=== PATIENT | male | born 1940 | race Caucasian/White ===

== ENCOUNTER 2019-07-29 11:42 | Inpatient (IN) | payer OTHER ==
--- NOTE | 2019-07-29 11:56 | PDOC ---
History of Present Illness - General Chief Complaint: Allergic Reaction Stated Complaint: ALLERGIC REACTION Time Seen by Provider: 07/29/19 11:55 Past History - Past Medical History Allergies/Adverse Reactions: Allergies Allergy/AdvReac Type Severity Reaction Status Date / Time Penicillins Allergy Hives Verified 07/29/19 11:45 Home Medications: Ambulatory Orders Amlodipine Besylate 10 mg PO DAILY 07/29/19 Aspirin 81 mg PO DAILY 07/29/19 Atorvastatin Ca [Lipitor] 40 mg PO HS 07/29/19 Colchicine 0.6 mg PO DAILY 07/29/19 Lisinopril [Prinivil -] 40 mg PO DAILY 07/29/19 Metoprolol Tartrate 50 mg PO DAILY 07/29/19 Tamsulosin HCl [Flomax] 0.4 mg PO DAILY 07/29/19 COPD: No Diabetes: Yes (PRE - DM) GI Disorders: Yes HTN: Yes Hypercholesterolemia: Yes - Immunization History Immunization Up to Date: Yes - Psycho Social/Smoking Cessation Hx Smoking Status: No Smoking History: Never smoked Number of Cigarettes Smoked Daily: 0 Hx Alcohol Use: No Drug/Substance Use Hx: No *Physical Exam - Vital Signs Last Vital Signs Temp Pulse Resp BP Pulse Ox 97.5 F L 90 17 173/92 H 97 07/29/19 11:45 07/29/19 11:45 07/29/19 11:45 07/29/19 11:45 07/29/19 11:45 ED Treatment Course - LABORATORY CBC & Chemistry Diagram: 07/29/19 12:44 07/29/19 12:44 Medical Decision Making - Medical Decision Making 07/29/19 12:30 HPI: 79yo M hx prostate cancer (s/p radiation and seed implantation 14 years ago), pre-diabetes, HTN, and PCN allergy presents from home c/o extensive rash s/p gentamicin and bactrim. Pt had TURP done by urologist on 07/20/19 and had a gentamicin injection then and started PO bactrim. On 07/21/19 pt began to develop painful red rash on abdomen. Pt first thought it was his usual rash that develops after PCN but then it got worse. Since then, rash has become more painful and spread to involve chest, arms, legs, penis, anus, mouth, and face. Pt went back to urologist and PCP on 07/25/19 and was given methylprednisone and dexamethasone and bactrim was stopped. Pt has been taking oral methylprednisone since then. Pt started taking claritin per recommendations. Rashes inside mouth and on face resolved but the areas are still painful. The rest of the rashes worsened and continued to blister and pop. Denies fever, chills, fatigue, headache, dizziness, numbness/tingling, weakness, vision changes, shortness of breath, cough, chest pain, palpitations, leg swelling, abdominal pain, blood in stool, diarrhea, constipation, nausea, vomiting, dysuria, hematuria, confusion. Uro - Dr Marco Antonio Pascual PCP - Dr Hayden Pascual ROS: Constitutional: Negative for chills, fever, fatigue, diaphoresis. HENT: Negative for sore throat, rhinorrhea, congestion. Eyes: Negative for visual disturbance. Respiratory: Negative for shortness of breath, cough, and wheezing. Cardiovascular: Negative for chest pain, palpitations, and leg swelling. Gastrointestinal: Negative for abdominal pain, blood in stool, constipation, diarrhea, nausea, and vomiting. Genitourinary: Negative for dysuria, flank pain, and hematuria. Musculoskeletal: Negative for myalgias, back pain, and neck pain. Skin: Positive for painful rash. Neurological: Negative for light-headedness, dizziness, vertigo, syncope, weakness, numbness and headaches. Psychiatric/Behavioral: Negative for behavioral problems and confusion. PE: Gen: Alert, NAD, uncomfortable-appearing. HEENT: PERRL, EOMI, MMM, NCAT. No conjunctival pallor. Sclera are non-icteric. Oropharynx is clear. CV: Regular rate and rhythm. No murmurs, rubs, or gallops. PULM: No resp distress. CTAB, no wheezes, rales, or rhonchi. ABD: soft, NT/ND, no rebound tenderness or guarding, no CVA tenderness. BACK: No TTP of c/t/l-spine. No step-offs or deformities. MSK: No bony deformities. 2+ pulses in all extremities. NEURO: AAOx3. PERRL. No gross CN deficits. Strength and sensation grossly intact throughout. EXTREMITIES: No cyanosis. No clubbing. No edema. No calf tenderness. PSYCH: Normal mood and thought pattern. SKIN: Warm and dry. Normal capillary refill. No jaundice. +TTP erythema with multiple coalescing erosions on chest and abdomen wrapping to R side, thighs, arms and axilla, penis, and anus. MDM: 79yo M hx prostate cancer (s/p radiation and seed implantation 14 years ago), pre-diabetes, HTN, and PCN allergy presents from home c/o extensive rash s/p gentamicin and bactrim for TURP on 07/20/19. 5% TBSA detachment (11% involvement including all rashes) including detachment of glans penis and anus. Presentation consistent with SJS. SCORTEN = 3 (age, malignancy, BUN). Ddx: erythema multiforme (rarely associated with drugs), erythroderma and erythematous drug eruption (less likely because would lack mucosal involvement and prominent skin pain), acute generalized exanthematous pustulosis, generalized bullous fixed drug eruption, linear IgA bullous dermatosis, paraneoplastic pemphigus -CBC,CMP,ESR,CRP -CXR -Cultures: blood, fungal, wounds -1L LR -4 Morphine -Dispo: Transfer to [facility] - Dr Malik spoke to burn center ( Dr Chamberlain) who said to admit to medicine. Pending call back from Medicine. 07/29/19 12:45 [facility] medicine called - no derm available for skin biopsy so cannot accept pt. Calling [facility]. [facility] stated cannot accept pt without biopsy. Will call derm, plastics, and wound. All called. Wound - Dr Vidal (pending call back) Derm - Dr Andrade (unable to reach service), Dr Platt (unable to reach doctor) , Dr Lopez (number no longer in service), Dr Randolph (doctor is away, covering doctor doesn't come to [facility]) Plastics - Dr Eisenberg (pending call back) 07/29/19 13:04 Pt states pain a little better s/p morphine but still in significant pain. 4 more morphine. 07/29/19 13:[address] Vidal for wound - will do biopsy, recommended ID consult. Calling ID stone polisher hand. Paged Urologist Dr Marco Antonio Pascual [phone]. Called Dr Hua admitting for Dr Hayden Pascual. Dr Malik spoke with Dr Blanco ID - requested to take photos and send to his cell. Permission granted verbally from pt. Photos of abdomen sent to Dr Blanco via text. Dr Blanco believes it does not look like SJS (due to irregularity and size) but is unsure of cause. Requested additional testing including HIV and syphilis and broad-spectrum abx. Ordered Levaquin and Vanc, HIV, RPR, HSV, GC. 07/29/19 14:[address] Dr Hua spoke with Dr Malik - requested hospitalist admission. Microblog sent to hospitalist. Spoke with Urologist Dr Marco Antonio Pascual - will come see pt this afternoon. 07/29/19 15:41 Signed out to admitting team. Discharge - Discharge Information Problems reviewed: Yes Clinical Impression/Diagnosis: Generalized skin eruption due to drugs and medicaments Condition: Stable - Admission Yes - Follow up/Referral Referrals: Lexx Silva [Primary Care Provider] - - Patient Discharge Instructions - Post Discharge Activity
[2019-07-29] MEDS ORDERED: morphine CARPU-JECT 4 MG/1 ML DISP.SYRIN IVPUSH ONE ×2 (12:19→13:07)
[2019-07-29] MEDS ORDERED: LACTATED RINGERS SOLUTION 1000 ML INFUS.BAG IV ONE ×2 (12:30→14:40)
[2019-07-29] MEDS ORDERED: morphine SULFATE 4 MG/ML VIAL ONE ×2 (12:33→13:50)
[2019-07-29 12:57] LABS: BASO % 0.4 % (0-2.0); EOS % 0.3 % (0-4.5); HEMATOCRIT 41.1 % (35.4-49); HEMOGLOBIN 13.6 GM/dL (11.7-16.9); LYMPH % 7.7 % (8-40); MCH 29.5 pg (25.7-33.7); MCHC 33.2 g/dl (32.0-35.9); MEAN CELL VOLUME 88.9 fl (80-96); MEAN PLT VOLUME 7.7 fl (7.5-11.1); MONO % 8.7 % (3.8-10.2); NEUT % 82.9 % (42.8-82.8); PLATELET COUNT 481 K/MM3 (134-434); RBC 4.62 M/mm3 (4.00-5.60); RDW 15.3 % (11.9-15.9); WHITE BLOOD COUNT 14.1 K/mm3 (4.0-10.0)
--- NOTE | 2019-07-29 13:18 | PDOC ---
Documentation entered by Juany Rodríguez SCRIBE, acting as scribe for Berta Malik MD. Berta Malik MD: This documentation has been prepared by the blancaibe, Juany Rodríguez SCRIBE, under my direction and personally reviewed by me in its entirety. I confirm that the documentation accurately reflects all work, treatment, procedures, and medical decision making performed by me. Attending Attestation - Resident Resident Name: Freddy Carrizalesth - HPI HPI: 07/29/19 12:41 The patient is a 79-year-old male with a past medical history significant for Pre-DM, Prostate CA, HTN, and penicillin allergy who presents to the emergency department with rashes and blisters to his mouth, arms, abdomen, penis, anus, and legs. The patient reports he had a TURP procedure done on the at his urologists office, following he was given a shot of gentamicin and discharged home on Bactrim. The patient reports the next day, he developed rashes to his abdomen, arms, legs, penis, and anus. The patient reports following up with his urologist on the , who discontinued the bacterium and gave the patient a shot of methylprednisolone and started taking Claritin, however, the rashes have been worsening. Allergies: penicillins PCP: Dr. Magaly Pascual. - Physicial Exam PE: 07/29/19 13:04 General: Awake, alert, in no acute distress. Skin: +large area of blistering anterior chest wall, area of blistering on the penis, sloughting over the internal glands, blisters in the anus. 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 Will treat with IV fluids. Transfer to burn center attempted, but patient was refused by Burn fellows at [facility] and [facility] because the patient did not have a skin biopsy. I explained to both fellows at length that I was concerned because the area of blistering involves the anus and genitals, but transfer was still refused. Attempted to transfer to medicine at [facility], but patient was refused because there is no skin biopsy available over the weekend. Asked the [facility] burn fellow for recommendations regarding the patient's care at [facility], and she stated "I have none". Will attempt to call [facility] for wound care at [place], attempt to call dermatology for biopsy. 07/29/19 13:44 [facility] called, case discussed with Burn Center attending, Dr. Chamberlain. Dr. Chamberlain request Internal Medicine service [facility] Transfer center called back 12:47: Internal Medicine attending didnt accept the transfer due to no dermatology service available over the weekend. [facility] called. Spoke to Burn Center: They want a skin biopsy before accepting the patient. Call placed to Dr. Vidal (wound Care), waiting for a callback. Case discussed with Dr. Vidal. Call placed to Dr. Andrade ([employer]), unable to reach the service. Call placed to Dr. Platt ([employer]), Unable to reach the doctor. Call placed to Dr. Lopez ([employer]), the number is no longer in service. Call placed to Dr. Randolph ([employer]). The doctor is away, and the covering doctor doesnt come to [place]. Call placed to Dr. Eisenberg, waiting for a callback. 07/29/19 13:[address] Blanco.
[2019-07-29 13:20] LABS: ALBUMIN 3.7 g/dl (3.4-5.0); ALK PHOS 68 U/L (45-117); ANION GAP 8 MMOL/L (8-16); BILIRUBIN,TOTAL 0.6 mg/dL (0.2-1); BLOOD UREA NITROGEN 43.1 mg/dL (7-18); CALCIUM 9.3 mg/dL (8.5-10.1); CHLORIDE 98 mmol/L (98-107); CO2 30 mmol/L (21-32); CREATININE 1.6 mg/dL (0.55-1.3); GLUCOSE,RANDOM 179 mg/dL (74-106); SGOT/AST 18 U/L (15-37); SGPT/ALT 47 U/L (13-61); SODIUM 136 mmol/L (136-145); TOT PROT 7.4 g/dl (6.4-8.2)
[2019-07-29] MEDS ORDERED: VANCOMYCIN 1 GM in D5W (PRE-DOCKED) 1,000 MG/250 ML IVPB ONE (14:04)
[2019-07-29] MEDS ORDERED: VANCOMYCIN 1 GRAM (PRE-DOCKED) 1,000 MG/250 ML BAG IVPB ONE (14:48)
--- NOTE | 2019-07-29 16:01 | HP ---
Admitting History and Physical - Admission Chief Complaint: Blisters and rash on the body, History of Present Illness: 07/29/19 12:41 The patient is a 79-year-old male with a past medical history significant for Pre-DM, Prostate CA, HTN, and penicillin allergy who presents to the emergency department with rashes and blisters to his mouth, arms, abdomen, penis, anus, and legs. The patient reports he had a TURP procedure done on the at his urologists office, following he was given a shot of gentamicin and discharged home on Bactrim. The patient reports the next day, he developed rashes to his abdomen, arms, legs, penis, and anus. The patient reports following up with his urologist on the , who discontinued the bacterium and gave the patient a shot of methylprednisolone and started taking Claritin, however, the rashes have been worsening. and pt got worse and came here for checkup, pt is irish speaking , history recieved form the son, - Smoking History Smoking history: Never smoked Aproximately how many cigarettes per day: 0 - Alcohol/Substance Use Hx Alcohol Use: No Home Medications - Allergies Allergies/Adverse Reactions: Allergies Allergy/AdvReac Type Severity Reaction Status Date / Time gentamicin Allergy Severe Verified 07/29/19 16:52 Penicillins Allergy Severe Hives Verified 07/29/19 16:52 bactrim Allergy Severe Uncoded 07/29/19 16:52 - Home Medications Home Medications: Ambulatory Orders Amlodipine Besylate 10 mg PO DAILY 07/29/19 Aspirin 81 mg PO DAILY 07/29/19 Atorvastatin Ca [Lipitor] 40 mg PO HS 07/29/19 Colchicine 0.6 mg PO DAILY 07/29/19 Lisinopril [Prinivil -] 40 mg PO DAILY 07/29/19 Metoprolol Tartrate 50 mg PO DAILY 07/29/19 Tamsulosin HCl [Flomax] 0.4 mg PO DAILY 07/29/19 Family Medical History Family History: Unremarkable Review of Systems Unable to obtain ROS, reason: rash all over the body , Physical Examination Vital Signs: Vital Signs Temperature 98.2 F 07/29/19 12:40 Pulse Rate 55 L 07/29/19 15:47 Respiratory Rate 17 07/29/19 15:47 Blood Pressure 146/65 07/29/19 15:47 O2 Sat by Pulse Oximetry (%) 100 07/29/19 15:47 Constitutional: Yes: Well Nourished Eyes: Yes: WNL, Other (no redness ,) Neck: Yes: WNL, Supple Cardiovascular: Yes: WNL, Regular Rate and Rhythm Respiratory: Yes: WNL, CTA Bilaterally Gastrointestinal: Yes: WNL, Normal Bowel Sounds, Other (upper abdome , a transverse patch of redness, with desquamation , no dc , no induration ,) ...Rectal Exam: Yes: WNL, Other (small blister in the anal area,) Renal/: Yes: Other (desquamation of penile skin , no dc,) Labs: CBC, BMP 07/29/19 12:44 07/29/19 12:44 Problem List - Problems (1) Generalized skin eruption due to drugs and medicaments Code(s): L27.0 - GEN SKIN ERUPTION DUE TO DRUGS AND MEDS TAKEN INTERNALLY Assessment/Plan BULLOUs skin ERRUPTIONS, sec to drug reaction, 79yo M hx prostate cancer (s/p radiation and seed implantation 14 years ago), pre-diabetes, HTN, and PCN allergy presents from home c/o extensive rash bullous eruption on abdomen, penile area , and anus, s/p gentamicin and bactrim for TURP on 07/20/19. 5% TBSA detachment (11% involvement including all rashes) including detachment of glans penis and anus. -CBC,CMP,ESR,CRP -CXR -Cultures: blood, fungal, wounds swab for the herpes, ER physician attempted to transfer [facility] pt to the [facility] ctr and [facility] , pt not accepted, Wound - Dr Vidal will see [facility] pt for possible biopsy , Derm - Dr Andrade, was called , and case discussed over the phone , wants to start solu cortef , and ivf , and no silvadine , no bacitracin, will use domebro on [facility] skin to dry up the bullae, and denuded skin, and use xeroform on the the penile area, pain management with morphine, no need for abx at this point , will keep the medicine use to inimum possible , will start abx if pt becomes septic , awaiting cultures. high sugar , will start RISS , dvt prophylaxis , early ambulation , magnolia void use of medicine if we can, ID dr Blanco called , Visit type - Emergency Visit Emergency Visit: Yes ED Registration Date: 07/29/19 Care time: The patient presented to the Emergency Department on the above date and was hospitalized for further evaluation of their emergent condition. - New Patient This patient is new to me today: Yes Date on this admission: 07/31/19 - Critical Care Critical Care patient: No
[2019-07-29 16:23] LABS: EPI CELLS 5.6 /HPF (0-5/HPF); HYALINE CASTS 2 /lpf (0-8); URINE APPEARANCE CLOUDY; URINE BACTERIA 2.2 /hpf (NEGATIVE); URINE BILIRUBIN NEGATIVE (NEGATIVE); URINE COLOR YELLOW; URINE GLUCOSE (UA) NEGATIVE (NEGATIVE); URINE KETONE NEGATIVE (NEGATIVE); URINE LEUK ESTERASE 2+ (NEGATIVE); URINE NITRITE NEGATIVE (NEGATIVE); URINE PROTEIN 2+ (NEGATIVE); URINE RBC 4 /hpf (0-4); URINE UROBILINOGEN 0.2 mg/dL (0.2-1.0); URINE WBC 34 /hpf (0-5)
[2019-07-29] MEDS ORDERED: CALCIUM ACETATE/AL SULFATE TOP 1.9 GM/PACKET PACKET TP SCH (17:15)
[2019-07-29] MEDS: HYDROCORTISONE SOD SUCCINATE 100 MG/2 ML VIAL IVPB SCH (18:28)
[2019-07-29] MEDS: MORPHINE SULFATE 2 MG/ML VIAL IVPUSH PRN (18:39)
[2019-07-29] MEDS: SODIUM CHLORIDE 0.45% 1,000 ML IV SCH (18:40)
[2019-07-29] MEDS ORDERED: PT OWN MED DRAWER 7, Y5N ONE (20:02)
[2019-07-29] MEDS: INSULIN SLIDING SCALE (NOVOLOG) 1 VIAL SQ SCH (21:51)
[2019-07-29] MEDS ORDERED: INSULIN SLIDING SCALE (NOVOLOG) 1 VIAL SQ SCH (22:00)
[2019-07-29] MEDS ORDERED: MUPIROCIN 2% TOPICAL OINTMENT FOR DECOLONIZATION NS SCH (22:00)
[2019-07-29] MEDS ORDERED: CHLORHEXIDINE GLUCONATE 4% CLEANSER FOR DECOLONIZATION TP SCH ×2 (22:00)
--- NOTE | 2019-07-29 23:58 | PN ---
Progress Note (short form) - Note Progress Note: I received a page about patient experiencing Chest pain. Upon further questioning, Pt described the pain as sharp radiating to the left arm, initially constant then reduced to 4/10 from an 8/10 at the beginning of the encounter. Inspiration nor palpation worsened the pain. PE: Chest : Vesicular breaths b/l Heart: Normal S1 S2 no MRG Abdomen: large ruptured blisters from medicine allergy. but +BS, mildly tender due to lesion, distended. no rebound Neuro: grossly intact. motor and sensation in all extremeties present and full. Plan: Cardiac profile to r/o ACS EKG showed some T wave inversions in leads V2-V6
[2019-07-30] MEDS: HYDROCORTISONE SOD SUCCINATE 100 MG/2 ML VIAL IVPB SCH ×3 (02:46→17:44)
[2019-07-30] MEDS: SODIUM CHLORIDE 0.45% 1,000 ML IV SCH ×2 (05:43→17:43)
[2019-07-30] MEDS: INSULIN SLIDING SCALE (NOVOLOG) 1 VIAL SQ SCH ×4 (06:24→22:10)
[2019-07-30] MEDS ORDERED: PT OWN MED DRAWER 7, Y5N ONE ×2 (08:41→10:50)
--- NOTE | 2019-07-30 08:58 | PN ---
Progress Note, Physician Chief Complaint: pt still in pain, and burining , responding well to morphine, - Current Medication List Current Medications: Active Medications Aluminum Sulfate/Calcium Acetate (Domeboro -) 1.9 gm TP DAILY MICHAEL Hydrocortisone Sodium Succinate (Solu-Cortef -) 100 mg IVPB Q8H-IV MICHAEL Last Admin: 07/30/19 02:46 Dose: 100 mg Sodium Chloride (1/2 Normal Saline) 1,000 mls @ 83 mls/hr IV ASDIR MICHAEL Last Admin: 07/30/19 05:43 Dose: 83 mls/hr Influenza Virus Vaccine Quadrival (Flulaval Quad ) 60 mcg IM .ONCE ONE Stop: 07/30/19 10:01 Insulin Aspart (Novolog Vial Sliding Scale -) 1 vial SQ [facility]; Protocol Last Admin: 07/30/19 06:24 Dose: Not Given Morphine Sulfate (Morphine Sulfate) 2 mg IVPUSH Q6H PRN PRN Reason: PAIN LEVEL 6-10 Last Admin: 07/29/19 18:39 Dose: 2 mg - Objective Vital Signs: Vital Signs Temperature 97.6 F 07/30/19 06:00 Pulse Rate 101 H 07/30/19 06:00 Respiratory Rate 20 07/29/19 23:42 Blood Pressure 99/64 07/30/19 06:00 O2 Sat by Pulse Oximetry (%) 100 07/29/19 21:00 Constitutional: Yes: Well Nourished Eyes: Yes: WNL HENT: Yes: WNL Neck: Yes: Supple, Trachea Midline Cardiovascular: Yes: Regular Rate and Rhythm Respiratory: Yes: Regular, CTA Bilaterally Gastrointestinal: Yes: WNL, Other (desquation, and denuded skin, with erythemaous patch of the) Integumentary: Yes: Other (desquamation of the skin of the ant abd wall, ruptured bullae, with surrounding erythema, and also penile desquamtion, no dc, swelling dec,) Labs: CBC, BMP 07/29/19 12:44 07/29/19 12:44 Problem List - Problems (1) Generalized skin eruption due to drugs and medicaments Code(s): L27.0 - GEN SKIN ERUPTION DUE TO DRUGS AND MEDS TAKEN INTERNALLY Impression/Plan Impression/Plan: Assessment/Plan BULLOUs skin ERRUPTIONS, sec to drug reaction, 79yo M hx prostate cancer (s/p radiation and seed implantation 14 years ago), pre-diabetes, HTN, and PCN allergy presents from home c/o extensive rash bullous eruption on abdomen, penile area , and anus, s/p gentamicin and bactrim for TURP on 07/20/19. -Cultures: blood, fungal, wounds pending, swab for the herpes, was seen by the ID , case discussed , pt doesnt need any abx,. and needs supportive treatment, is on iv hydration , and on iv steroids, local wound care, domeboro, for abdominal lesions, and iodoform for the groin, dr Andrade will see the pt tomorrw, dvt prophylaxis , early ambulation , and scd,m Visit type - Emergency Visit Emergency Visit: No - New Patient This patient is new to me today: No - Critical Care Critical Care patient: No - Discharge Referral Referred to [facility] No
[2019-07-30] MEDS ORDERED: FLU VACCINE QUAD 60 MCG/0.5 ML (MDV 19-20) IM ONE (10:00)
--- NOTE | 2019-07-30 10:30 | EKG ---
Test Reason : Blood Pressure : / mmHG Vent. Rate : 079 BPM Atrial Rate : 079 BPM P-R Int : 138 ms QRS Dur : 112 ms QT Int : 378 ms P-R-T Axes : 065 070 084 degrees QTc Int : 433 ms NORMAL SINUS RHYTHM NONSPECIFIC T WAVE ABNORMALITY ABNORMAL ECG WHEN COMPARED WITH ECG OF 29-JUL-2019 22:39, NONSPECIFIC T WAVE ABNORMALITY HAS REPLACED INVERTED T WAVES IN ANTEROLATERAL LEADS Confirmed by MD LANCE, KELVIN ([id number]) on 07/30/2019 10:29:50 AM Referred By: Deloris MCLAUGHLIN Confirmed By:KELVIN LUCAS MD
--- NOTE | 2019-07-30 10:33 | EKG ---
Test Reason : Blood Pressure : / mmHG Vent. Rate : 053 BPM Atrial Rate : 053 BPM P-R Int : 168 ms QRS Dur : 114 ms QT Int : 414 ms P-R-T Axes : 070 065 092 degrees QTc Int : 388 ms SINUS BRADYCARDIA NONSPECIFIC ST AND T WAVE ABNORMALITY ABNORMAL ECG NO PREVIOUS ECGS AVAILABLE Confirmed by MD LANCE, KELVIN ([id number]) on 07/30/2019 10:33:02 AM Referred By: Confirmed By:KELVIN LUCAS MD
--- NOTE | 2019-07-30 10:49 | CON.ID ---
Consult Consult Specialty:: infectious diseases Referred by:: hospitalist Reason for Consultation:: drug reaction,sjs suspicion - History of Present Illness Chief Complaint: pain and peeling of the skin History of Present Illness: 79-year-old male with a past medical history significant for Pre-DM, Prostate CA , HTN, and penicillin allergy admitted to the hospital because blisters to his arms, abdomen, penis, anus, and legs. The patient reports he had a TURP procedure done on the at his urologists office, following he was given a shot of gentamicin and discharged home on Bactrim. The patient reports the next day, he developed rashes to his abdomen, arms, legs, penis, and anus. The patient reports following up with his urologist on the , who discontinued the bacterium and gave the patient a shot of methylprednisolone and started taking Claritin, however, the rashes have been worsening. and pt got worse and came here currently patient is having pain at the site - History Source History Provided By: Patient, Medical Record Limitations to Obtaining History: Language Barrier - Alcohol/Substance Use Hx Alcohol Use: No - Smoking History Smoking history: Never smoked Aproximately how many cigarettes per day: 0 Home Medications - Allergies Allergies/Adverse Reactions: Allergies Allergy/AdvReac Type Severity Reaction Status Date / Time gentamicin Allergy Severe Verified 07/29/19 16:52 Penicillins Allergy Severe Hives Verified 07/29/19 16:52 bactrim Allergy Severe Uncoded 07/29/19 16:52 - Home Medications Home Medications: Ambulatory Orders Amlodipine Besylate 10 mg PO DAILY 07/29/19 Aspirin 81 mg PO DAILY 07/29/19 Atorvastatin Ca [Lipitor] 40 mg PO HS 07/29/19 Colchicine 0.6 mg PO DAILY 07/29/19 Lisinopril [Prinivil -] 40 mg PO DAILY 07/29/19 Metoprolol Tartrate 50 mg PO DAILY 07/29/19 Tamsulosin HCl [Flomax] 0.4 mg PO DAILY 07/29/19 Review of Systems - Review of Systems Constitutional: reports: No Symptoms Eyes: reports: No Symptoms HENT: reports: No Symptoms Neck: reports: No Symptoms Cardiovascular: reports: No Symptoms Respiratory: reports: No Symptoms Gastrointestinal: reports: No Symptoms Genitourinary: reports: No Symptoms Musculoskeletal: reports: No Symptoms Integumentary: reports: Blister, Erythema, Rash, Wound Neurological: reports: No Symptoms Endocrine: reports: No Symptoms Hematology/Lymphatic: reports: No Symptoms Psychiatric: reports: No Symptoms Physical Exam Vital Signs: Vital Signs Temperature 97.6 F 07/30/19 06:00 Pulse Rate 101 H 07/30/19 06:00 Respiratory Rate 20 07/29/19 23:42 Blood Pressure 99/64 07/30/19 06:00 O2 Sat by Pulse Oximetry (%) 100 07/29/19 21:00 Constitutional: Yes: Well Nourished, Calm, Mild Distress HENT: Yes: Atraumatic Neck: Yes: Supple, Trachea Midline Cardiovascular: Yes: Regular Rate and Rhythm Respiratory: Yes: Regular, CTA Bilaterally Gastrointestinal: Yes: Normal Bowel Sounds, Soft Musculoskeletal: Yes: WNL Extremities: Yes: Other Integumentary: Yes: Erythema, Rash, Other (rash on the penis) Wound/Incision: Yes: Open to air Neurological: Yes: Alert, Oriented Psychiatric: Yes: Alert, Oriented Labs: CBC, BMP 07/29/19 12:44 07/29/19 12:44 Assessment/Plan this patient who comes in with rash post genta and bactrim this is a reaction of the drugs it is close picture of sjs surface area is not large i would advise pain mgmt local abx application no silver creams,plain local abx if needed close watch and hydration
[2019-07-30] MEDS: CALCIUM ACETATE/AL SULFATE TOP 1.9 GM/PACKET PACKET TP SCH (11:08)
--- NOTE | 2019-07-30 15:30 | EKG ---
Test Reason : Blood Pressure : / mmHG Vent. Rate : 058 BPM Atrial Rate : 058 BPM P-R Int : 114 ms QRS Dur : 110 ms QT Int : 416 ms P-R-T Axes : 052 057 090 degrees QTc Int : 408 ms POOR DATA QUALITY, INTERPRETATION MAY BE ADVERSELY AFFECTED SINUS BRADYCARDIA T WAVE ABNORMALITY, CONSIDER ANTEROLATERAL ISCHEMIA ABNORMAL ECG WHEN COMPARED WITH ECG OF 29-JUL-2019 15:49, T WAVE INVERSION NOW EVIDENT IN ANTERIOR LEADS Confirmed by MD LANCE, KELVIN ([id number]) on 07/30/2019 3:30:10 PM Referred By: Confirmed By:KELVIN LUCAS MD
[2019-07-30] MEDS: MORPHINE SULFATE 2 MG/ML VIAL IVPUSH PRN (17:30)
[2019-07-30 18:08] LABS: ALBUMIN 3.1 g/dl (3.4-5.0); BILIRUBIN,TOTAL 0.3 mg/dL (0.2-1); BLOOD UREA NITROGEN 39.6 mg/dL (7-18); CALCIUM 8.5 mg/dL (8.5-10.1); CREATININE 1.2 mg/dL (0.55-1.3); POTASSIUM 4.4 mmol/L (3.5-5.1); TOT PROT 6.5 g/dl (6.4-8.2)
[2019-07-30] MEDS ORDERED: INSULIN (NOVOLOG) ASPART 100 UNITS/ML 10ML VIAL ONE (21:29)
[2019-07-31] MEDS: HYDROCORTISONE SOD SUCCINATE 100 MG/2 ML VIAL IVPB SCH ×3 (02:55→18:00)
[2019-07-31] MEDS: INSULIN SLIDING SCALE (NOVOLOG) 1 VIAL SQ SCH ×4 (06:30→21:17)
[2019-07-31 08:46] LABS: BASO % 0.2 % (0-2.0); EOS % 0.4 % (0-4.5); HEMATOCRIT 38.8 % (35.4-49); HEMOGLOBIN 13.3 GM/dL (11.7-16.9); LYMPH % 13.1 % (8-40); MCH 30.3 pg (25.7-33.7); MCHC 34.2 g/dl (32.0-35.9); MEAN CELL VOLUME 88.6 fl (80-96); MEAN PLT VOLUME 7.1 fl (7.5-11.1); MONO % 4.5 % (3.8-10.2); NEUT % 81.8 % (42.8-82.8); PLATELET COUNT 448 K/MM3 (134-434); RBC 4.39 M/mm3 (4.00-5.60); RDW 15.1 % (11.9-15.9); WHITE BLOOD COUNT 10.3 K/mm3 (4.0-10.0)
--- NOTE | 2019-07-31 09:02 | PN ---
Progress Note (short form) - Note Progress Note: Vascular surgery Spoke to ID about pt. ID strongly suspects this is SJS. ID does not want biopsy at this juncture. Will be on standby if needed. Mirza Vidal DO
[2019-07-31 09:04] LABS: ALBUMIN 3.3 g/dl (3.4-5.0); BILIRUBIN,TOTAL 0.7 mg/dL (0.2-1); BLOOD UREA NITROGEN 31.3 mg/dL (7-18); CALCIUM 8.9 mg/dL (8.5-10.1); CREATININE 1.1 mg/dL (0.55-1.3); POTASSIUM 4.1 mmol/L (3.5-5.1)
[2019-07-31] MEDS: LACTATED RINGERS SOLUTION 1,000 ML/1,000 ML INFUS.BAG IV SCH (09:30)
[2019-07-31] MEDS: amLODIPine BESYLATE 10 MG TABLET (FP) PO SCH (09:31)
[2019-07-31] MEDS: METOPROLOL TARTRATE 50 MG TABLET (FP) PO SCH (09:31)
[2019-07-31] MEDS: CALCIUM ACETATE/AL SULFATE TOP 1.9 GM/PACKET PACKET TP SCH (09:31)
--- NOTE | 2019-07-31 09:59 | PN ---
Progress Note, Physician History of Present Illness: stable still with pain - Current Medication List Current Medications: Active Medications Aluminum Sulfate/Calcium Acetate ([place] -) 1.9 gm TP DAILY [facility] Last Admin: 07/31/19 09:31 Dose: 1.9 gm Amlodipine Besylate (Norvasc -) 10 mg PO DAILY [facility] Last Admin: 07/31/19 09:31 Dose: 10 mg Atorvastatin Calcium (Lipitor -) 40 mg PO HS [facility] Hydrocortisone Sodium Succinate (Solu-Cortef -) 100 mg IVPB Q8H-IV [facility] Last Admin: 07/31/19 09:30 Dose: 100 mg Lactated Ringer's (Lactated Ringers Solution) 1,000 ml in 1,000 mls @ 100 mls/ hr IV ASDIR [facility] Last Admin: 07/31/19 09:30 Dose: 100 mls/hr Insulin Aspart (Novolog Vial Sliding Scale -) 1 vial SQ ACHS [facility]; Protocol Last Admin: 07/31/19 06:30 Dose: Not Given Metoprolol Tartrate (Lopressor -) 50 mg PO DAILY [facility] Last Admin: 07/31/19 09:31 Dose: 50 mg Morphine Sulfate (Morphine Sulfate) 2 mg IVPUSH Q6H PRN PRN Reason: PAIN LEVEL 6-10 Last Admin: 07/30/19 17:30 Dose: 2 mg - Objective Vital Signs: Vital Signs Temperature 97.8 F 07/31/19 05:32 Pulse Rate 58 L 07/31/19 05:32 Respiratory Rate 20 07/31/19 05:32 Blood Pressure 160/76 07/31/19 05:32 O2 Sat by Pulse Oximetry (%) 98 07/30/19 09:00 Constitutional: Yes: Calm, Mild Distress Cardiovascular: Yes: S1, S2 Respiratory: Yes: Regular, CTA Bilaterally Gastrointestinal: Yes: Normal Bowel Sounds, Soft Genitourinary: Yes: Other (penile mucous involvement) Musculoskeletal: Yes: WNL Extremities: Yes: Other Integumentary: Yes: Erythema, Rash, Other Labs: CBC, BMP 07/31/19 07:55 07/31/19 07:55 Assessment/Plan Problem List - Problems (1) Generalized skin eruption due to drugs and medicaments Code(s): L27.0 - GEN SKIN ERUPTION DUE TO DRUGS AND MEDS TAKEN INTERNALLY plan continue to monitor clinically local care
--- NOTE | 2019-07-31 17:41 | CONSULT ---
Consult Consult Specialty:: dermatology - History Source History Provided By: Patient, Medical Record - Alcohol/Substance Use Hx Alcohol Use: No - Smoking History Smoking history: Never smoked Aproximately how many cigarettes per day: 0 Home Medications - Allergies Allergies/Adverse Reactions: Allergies Allergy/AdvReac Type Severity Reaction Status Date / Time gentamicin Allergy Severe Verified 07/29/19 16:52 Penicillins Allergy Severe Hives Verified 07/29/19 16:52 bactrim Allergy Severe Uncoded 07/29/19 16:52 - Home Medications Home Medications: Ambulatory Orders Amlodipine Besylate 10 mg PO DAILY 07/29/19 Aspirin 81 mg PO DAILY 07/29/19 Atorvastatin Ca [Lipitor] 40 mg PO HS 07/29/19 Colchicine 0.6 mg PO DAILY 07/29/19 Lisinopril [Prinivil -] 40 mg PO DAILY 07/29/19 Metoprolol Tartrate 50 mg PO DAILY 07/29/19 Tamsulosin HCl [Flomax] 0.4 mg PO DAILY 07/29/19 Physical Exam Vital Signs: Vital Signs Temperature 98.5 F 07/31/19 14:08 Pulse Rate 60 07/31/19 14:08 Respiratory Rate 16 07/31/19 09:00 Blood Pressure 123/50 L 07/31/19 14:08 O2 Sat by Pulse Oximetry (%) 98 07/31/19 09:00 Labs: CBC, BMP 07/31/19 07:55 07/31/19 07:55 Assessment/Plan Dermatology Consult. Patient developed drug eruption S/P Bactrim. On exam he has a erythematous dry exfoliative dermatititis confined to his abdomen and penis. his back extremities and face are clear and his mouth /eyes are also clear.On the abdomen there are bullae that have broken and are now healing . The eruption is resolving and no new lesions have developed in the last 2 days. Please apply bactroban topical ointment to affected area. Urology will manage treatment of genital area and a dressing has been applied and is intact. Diagnosis is a bullous drug eruption which is currently stable and resolving with skin care and discontinuation of antibiotics.
--- NOTE | 2019-07-31 19:12 | PN ---
Progress Note (short form) - Note Progress Note: HPI: No acute events overnight. No complaints today. Pt reports having some abdominal pain noted at rest. No fevers/chills, diarrhea/constipation PE: GEN: NAD, awake, alert, resting in bed HEENT: NC/AT, EomI, IAN, no mucosal ulcers seen Neck: No JVD appreciated LUNG: CTA b/l no wheezes CARD: RRR no murmurs appreciated ABD: Soft, slightly TTP, nondistended, obese, ruptured bullae with areas of duskiness noted. no fluid wave appreciated : Necrosis of glans noted without any overt drainage or paraphimosis EXT: no edema CBC, BMP 07/31/19 07:55 07/31/19 07:55 Hepatic Panel Total Bilirubin 0.7 mg/dL (0.2-1) 07/31/19 07:55 AST 15 U/L (15-37) 07/31/19 07:55 ALT 41 U/L (13-61) 07/31/19 07:55 Alkaline Phosphatase 64 U/L (45-117) 07/31/19 07:55 Albumin 3.3 g/dl (3.4-5.0) L 07/31/19 07:55 Microbiology 07/31/19 14:25 Blood - Peripheral Venous CHAN Preparation - Preliminary 07/31/19 14:25 Blood - Peripheral Venous Fungal Culture - Preliminary 07/29/19 14:25 Blood - Peripheral Venous Blood Culture - Preliminary NO GROWTH OBTAINED AFTER 48 HOURS, INCUBATION TO CONTINUE FOR 3 DAYS. 07/29/19 14:25 Blood - Peripheral Venous Blood Culture - Preliminary NO GROWTH OBTAINED AFTER 48 HOURS, INCUBATION TO CONTINUE FOR 3 DAYS. 07/29/19 14:04 Buttock - Right Gram Stain - Final 07/29/19 14:04 Buttock - Right Wound Culture - Preliminary Klebsiella Pneumoniae Klebsiella Pneumoniae#2 Alpha Hemolytic Streptococcus Pending Organism#2 07/29/19 14:04 Perineal Gram Stain - Final 07/29/19 14:04 Perineal Wound Culture - Final NO AEROBIC OR ANAEROBIC GROWTH OBTAINED. 07/29/19 20:30 Abdomen Gram Stain - Final 07/29/19 20:30 Abdomen Wound Culture - Preliminary NO GROWTH OBTAINED AFTER 24 HOURS INCUBATION, REINCUBATED. 07/29/19 16:12 Urine - Urine Clean Catch Urine Culture - Final NO GROWTH OBTAINED Active Medications Aluminum Sulfate/Calcium Acetate ([place] -) 1.9 gm TP DAILY [facility] Last Admin: 07/31/19 09:31 Dose: 1.9 gm Amlodipine Besylate (Norvasc -) 10 mg PO DAILY [facility] Last Admin: 07/31/19 09:31 Dose: 10 mg Atorvastatin Calcium (Lipitor -) 40 mg PO HS [facility] Hydrocortisone Sodium Succinate (Solu-Cortef -) 100 mg IVPB Q8H-IV [facility] Last Admin: 07/31/19 18:00 Dose: 100 mg Lactated Ringer's (Lactated Ringers Solution) 1,000 ml in 1,000 mls @ 100 mls/ hr IV ASDIR [facility] Last Admin: 07/31/19 09:30 Dose: 100 mls/hr Insulin Aspart (Novolog Vial Sliding Scale -) 1 vial SQ ACHS [facility]; Protocol Last Admin: 07/31/19 16:22 Dose: Not Given Metoprolol Tartrate (Lopressor -) 50 mg PO DAILY [facility] Last Admin: 07/31/19 09:31 Dose: 50 mg Morphine Sulfate (Morphine Sulfate) 2 mg IVPUSH Q6H PRN PRN Reason: PAIN LEVEL 6-10 Last Admin: 07/30/19 17:30 Dose: 2 mg Assessment and Plan Drug Rash suspicious for SJS Pre-diabetic HTN H/O Prostate Ca --Switch IVF to LR@100cc/hr --Hyrocortisone 100mg q8h Iv --Hold all ABX at this time --Will obtain CT Abd/Pelvis due to duskiness to r/o necrotizing fascitiis --Morphine 2q6h for pain control --ISS for glycemic coverage; BGM ACHS --Continue home medications as below: Toprol XL 50mg qdaily Norvasc 10mg qdaily Lipitor 20mg HS --appreciated all labor relations consultant recommendations --Bacitracin to all open areas of skin FEN: Fluids: LR@100cc/hr Electrolyte abnormalities: None Nutrition: PPX: DVT - SCDs Dispo: continue monitoring; rash improving Case discussed with Dr. Juan and Dr. Bella Lawler, DO - IM PGY-3 <Saeid Lawler - Last Filed: 07/31/19 19:07> - Note Progress Note: Seen and examined; please see resident note for further historical information. I personally verified all rosario historical information and exam findings. Personally interpreted all imaging and diagnostics and reviewed appropriate consults. I reviewed all labs and vital signs as per resident note and EMR as documented. I agree with the above assessment and plan unless supplemented by myself in the following. Seen and examined. The rash does not have any target predilection at this point. No mucosal involvement. There is not a overwhelming amount of body surface area involvement that would be judged to be less than 5 to 10% which would not be indicative of any toxic epidermal necrolysis. Does not appear typical for June-Marcos syndrome, will consult dermatology as well as will obtain CT scan due to some mottling surrounding. Would like to rule it any cellulitic regions. Also, will consult urology due to the penile lesion near the glans. He is not having any worsening pain, he is hematin medically stable and afebrile. 10 system review of systems completed and is negative aside from history of present illness VS, labs, imaging reviewed NAD, AAO, resting comfortably in bed. RRR s1/2 no mgr Normal muscle tone, moves all 5 extremities with normal apparent strength Neck is supple, trachea midline, no carol LN Lungs CTAB with sym expansion NT ND +BS no carol organomegaly CN2-12 wnl; no FND NC AT EOMI PERRLA Normal mood, appropriate behavior, euthymic affect Drug rash with some scabbing and redness with some bullae formation and surrounding mottling, no crepitus that would indicate necrotizing fasciitis but the mottling and redness could be suspicious for cellular colitis with potential underlying process and want to rule out any underlying issues from infection. Furthermore, there is no oral mucosal involvement noted. Reviewed all imaging, preliminary CT reviewed and does not appear to have any thickening in the areas of the skin changes and there is no subcutaneous air noted but we will await the final report Assessment and plan: Patient is a 79-year-old male presenting with suspected drug reaction that must be ruled out for June-Marcos syndrome. They are currently off of the drugs , we will rule out any underlying infective process. We will continue steroids and consult dermatology. No biopsy indicated at this point per the consulting services. We will follow-up with the dermatology recommendations and monitor the patient and patient. I agree with the assessment and plan outlined in the resident note as documented aside from as supplemented by myself within this document. <Yurkiw,Sonido - Last Filed: 08/01/19 11:29>
[2019-07-31] MEDS ORDERED: INSULIN (NOVOLOG) ASPART 100 UNITS/ML 10ML VIAL ONE (21:06)
[2019-07-31] MEDS: ATORVASTATIN CA 40 MG TABLET (FP) PO SCH (21:17)
[2019-08-01] MEDS: HYDROCORTISONE SOD SUCCINATE 100 MG/2 ML VIAL IVPB SCH (01:18)
[2019-08-01] MEDS: LACTATED RINGERS SOLUTION 1,000 ML/1,000 ML INFUS.BAG IV SCH (01:38)
[2019-08-01] MEDS: INSULIN SLIDING SCALE (NOVOLOG) 1 VIAL SQ SCH ×4 (06:20→21:29)
[2019-08-01 08:58] LABS: HEMATOCRIT 36.8 % (35.4-49); HEMOGLOBIN 12.2 GM/dL (11.7-16.9); MCH 29.3 pg (25.7-33.7); MCHC 33.1 g/dl (32.0-35.9); MEAN CELL VOLUME 88.5 fl (80-96); MEAN PLT VOLUME 7.3 fl (7.5-11.1); PLATELET COUNT 419 K/MM3 (134-434); RBC 4.16 M/mm3 (4.00-5.60); RDW 14.9 % (11.9-15.9)
[2019-08-01 09:24] LABS: CREATININE 0.9 mg/dL (0.55-1.3); POTASSIUM 4.1 mmol/L (3.5-5.1)
[2019-08-01] MEDS: predniSONE 20 MG TABLET (UD) PO SCH (10:20)
[2019-08-01] MEDS: amLODIPine BESYLATE 10 MG TABLET (FP) PO SCH (10:20)
[2019-08-01] MEDS: METOPROLOL TARTRATE 50 MG TABLET (FP) PO SCH (10:20)
--- NOTE | 2019-08-01 10:59 | PN ---
Progress Note (short form) - Note Progress Note: HPI: No acute events overnight. Pt's abdominal pain improving. Pt reports concern over his L medial thigh wound and his R-sided wound and notes slight increase in desquamation. No fevers/chills, no SOB, no CP, no palpitations PE: GEN: NAD, awake, alert, sittin in bed HEENT: NC/AT, no mucosal ulcers, MMM Neck: No JVD appreciated LUNG: CTA b/l no wheezes CARD: RRR no murmurs appreciated ABD: Soft, slightly TTP, nondistended, obese, areas of ruptured bullae without any evidence of infection. no drainage noted. : Circumcised, area of duskiness proximal glans dry without palliation or improvement today EXT: no edema CBC, BMP 07/31/19 07:55 07/31/19 07:55 Hepatic Panel Total Bilirubin 0.7 mg/dL (0.2-1) 07/31/19 07:55 AST 15 U/L (15-37) 07/31/19 07:55 ALT 41 U/L (13-61) 07/31/19 07:55 Alkaline Phosphatase 64 U/L (45-117) 07/31/19 07:55 Albumin 3.3 g/dl (3.4-5.0) L 07/31/19 07:55 Microbiology 07/31/19 14:25 Blood - Peripheral Venous CHAN Preparation - Preliminary 07/31/19 14:25 Blood - Peripheral Venous Fungal Culture - Preliminary 07/29/19 14:25 Blood - Peripheral Venous Blood Culture - Preliminary NO GROWTH OBTAINED AFTER 48 HOURS, INCUBATION TO CONTINUE FOR 3 DAYS. 07/29/19 14:25 Blood - Peripheral Venous Blood Culture - Preliminary NO GROWTH OBTAINED AFTER 48 HOURS, INCUBATION TO CONTINUE FOR 3 DAYS. 07/29/19 14:04 Buttock - Right Gram Stain - Final 07/29/19 14:04 Buttock - Right Wound Culture - Preliminary Klebsiella Pneumoniae Klebsiella Pneumoniae#2 Alpha Hemolytic Streptococcus Pending Organism#2 07/29/19 14:04 Perineal Gram Stain - Final 07/29/19 14:04 Perineal Wound Culture - Final NO AEROBIC OR ANAEROBIC GROWTH OBTAINED. 07/29/19 20:30 Abdomen Gram Stain - Final 07/29/19 20:30 Abdomen Wound Culture - Preliminary NO GROWTH OBTAINED AFTER 24 HOURS INCUBATION, REINCUBATED. 07/29/19 16:12 Urine - Urine Clean Catch Urine Culture - Final NO GROWTH OBTAINED Active Medications Aluminum Sulfate/Calcium Acetate ([place] -) 1.9 gm TP DAILY [facility] Last Admin: 08/01/19 15:17 Dose: 1.9 gm Amlodipine Besylate (Norvasc -) 10 mg PO DAILY [facility] Last Admin: 08/01/19 10:20 Dose: 10 mg Atorvastatin Calcium (Lipitor -) 40 mg PO HS [facility] Last Admin: 07/31/19 21:17 Dose: 40 mg Insulin Aspart (Novolog Vial Sliding Scale -) 1 vial SQ [facility]; Protocol Last Admin: 08/01/19 16:58 Dose: 4 units Metoprolol Tartrate (Lopressor -) 50 mg PO DAILY [facility] Last Admin: 08/01/19 10:20 Dose: 50 mg Prednisone (Deltasone -) 60 mg PO DAILY [facility] Last Admin: 08/01/19 10:20 Dose: 60 mg Assessment and Plan Drug Rash suspicious for SJS Pre-diabetic HTN H/O Prostate Ca --Discontinue IVF at this time --Switch to Prednisone and can taper --Discontinued morphine; patient can use tylenol if needed for pain --ISS for glycemic coverage; BGM ACHS --Continue home medications as below: Toprol XL 50mg qdaily Norvasc 10mg qdaily Lipitor 40mg HS --appreciated all marine consultant recommendations --Bacitracin to all open areas of skin FEN: Fluids: PO only Electrolyte abnormalities: None Nutrition: Diabetic sodium controlled PPX: DVT - SCDs Dispo: Likely d/c in AM Case discussed with Dr. Drake Lawler, DO - IM PGY-3 <Saeid Lawler - Last Filed: 08/01/19 20:24> - Note Progress Note: Seen and examined; please see resident note for further historical information. I personally verified all rosario historical information and exam findings. Personally interpreted all imaging and diagnostics and reviewed appropriate consults. I reviewed all labs and vital signs as per resident note and EMR as documented. I agree with the above assessment and plan unless supplemented by myself in the following. Dermatology saw the patient does not believe that this is June-Marcos syndrome. The patient remains afebrile and hemodynamically stable. Pending urology consultation. If they are clear with the patient leaving we will discuss with infectious disease and plan for discharge. They have no new complaints today in good spirits 10 system review of systems completed and is negative aside from history of present illness VS, labs, imaging reviewed NAD, AAO, resting comfortably in bed. RRR s1/2 no mgr Normal muscle tone, moves all 5 extremities with normal apparent strength Neck is supple, trachea midline, no carol LN Lungs CTAB with sym expansion NT ND +BS no carol organomegaly CN2-12 wnl; no FND NC AT EOMI PERRLA Normal mood, appropriate behavior, euthymic affect Drug rash with some scabbing and redness with some bullae formation and surrounding mottling, no crepitus that would indicate necrotizing fasciitis but the mottling and redness could be suspicious for cellular colitis with potential underlying process and want to rule out any underlying issues from infection. Furthermore, there is no oral mucosal involvement noted. Official CT scan without any indicated cellulitic changes Assessment and plan: Patient is a 79-year-old male presenting with suspected drug reaction that must be ruled out for June-Marcos syndrome. Dermatology has completed the consult and does not believe that this is sales representative metals of June-Marcos syndrome <Sonido Juan - Last Filed: 08/02/19 08:03>
--- NOTE | 2019-08-01 12:18 | PN ---
Progress Note, Physician History of Present Illness: patient stable no new issues - Current Medication List Current Medications: Active Medications Aluminum Sulfate/Calcium Acetate ([place] -) 1.9 gm TP DAILY [facility] Last Admin: 07/31/19 09:31 Dose: 1.9 gm Amlodipine Besylate (Norvasc -) 10 mg PO DAILY [facility] Last Admin: 08/01/19 10:20 Dose: 10 mg Atorvastatin Calcium (Lipitor -) 40 mg PO HS [facility] Last Admin: 07/31/19 21:17 Dose: 40 mg Insulin Aspart (Novolog Vial Sliding Scale -) 1 vial SQ [facility]; Protocol Last Admin: 08/01/19 06:20 Dose: Not Given Metoprolol Tartrate (Lopressor -) 50 mg PO DAILY [facility] Last Admin: 08/01/19 10:20 Dose: 50 mg Prednisone (Deltasone -) 60 mg PO DAILY [facility] Last Admin: 08/01/19 10:20 Dose: 60 mg - Objective Vital Signs: Vital Signs Temperature 97.7 F 08/01/19 06:00 Pulse Rate 65 08/01/19 10:00 Respiratory Rate 18 08/01/19 10:00 Blood Pressure 174/76 H 08/01/19 10:00 O2 Sat by Pulse Oximetry (%) 97 07/31/19 21:00 Constitutional: Yes: No Distress, Calm Cardiovascular: Yes: S1, S2 Respiratory: Yes: Regular, CTA Bilaterally Gastrointestinal: Yes: Normal Bowel Sounds, Soft Musculoskeletal: Yes: WNL Extremities: Yes: Other Neurological: Yes: Alert, Oriented Psychiatric: Yes: Alert, Oriented Labs: CBC, BMP 08/01/19 07:23 08/01/19 07:23 Assessment/Plan Problem List - Problems (1) Generalized skin eruption due to drugs and medicaments Code(s): L27.0 - GEN SKIN ERUPTION DUE TO DRUGS AND MEDS TAKEN INTERNALLY plan continue to monitor clinically local care
[2019-08-01] MEDS: CALCIUM ACETATE/AL SULFATE TOP 1.9 GM/PACKET PACKET TP SCH (15:17)
--- NOTE | 2019-08-01 15:28 | CON.GU ---
Consult Consult Specialty:: Reason for Consultation:: necrosis of glans penis - History of Present Illness Chief Complaint: rash History of Present Illness: 79-year-old male with a past medical history significant for Pre-DM, Prostate CA , HTN, and penicillin allergy who presents to the emergency department with rashes and blisters to his mouth, arms, abdomen, penis, anus, and legs. The patient reports he had a TURP procedure done on the at his urologists office, following he was given a shot of gentamicin and discharged home on Bactrim. The patient reports the next day, he developed rashes to his abdomen, arms, legs, penis, and anus. The patient reports following up with his urologist on the , who discontinued the bacterium and gave the patient a shot of methylprednisolone and started taking Claritin, however, the rashes have been worsening. and pt got worse and came here for checkup, pt is ghanaian speaking , history recieved form the son. cons req. - History Source History Provided By: Patient, Family Member, Medical Record - Past Medical History Renal/: Yes: BPH, Cancer - Past Surgical History Past Surgical History: Yes: TURP - Alcohol/Substance Use Hx Alcohol Use: No - Smoking History Smoking history: Never smoked Aproximately how many cigarettes per day: 0 Home Medications - Allergies Allergies/Adverse Reactions: Allergies Allergy/AdvReac Type Severity Reaction Status Date / Time gentamicin Allergy Severe Verified 07/29/19 16:52 Penicillins Allergy Severe Hives Verified 07/29/19 16:52 bactrim Allergy Severe Uncoded 07/29/19 16:52 - Home Medications Home Medications: Ambulatory Orders Amlodipine Besylate 10 mg PO DAILY 07/29/19 Aspirin 81 mg PO DAILY 07/29/19 Atorvastatin Ca [Lipitor] 40 mg PO HS 07/29/19 Colchicine 0.6 mg PO DAILY 07/29/19 Lisinopril [Prinivil -] 40 mg PO DAILY 07/29/19 Metoprolol Tartrate 50 mg PO DAILY 07/29/19 Tamsulosin HCl [Flomax] 0.4 mg PO DAILY 07/29/19 Review of Systems - Review of Systems Genitourinary: reports: Other (penile lesions) Physical Exam- Vital Signs: Vital Signs Temperature 97.8 F 08/01/19 14:24 Pulse Rate 54 L 08/01/19 14:24 Respiratory Rate 18 08/01/19 10:00 Blood Pressure 152/66 08/01/19 14:24 O2 Sat by Pulse Oximetry (%) 97 07/31/19 21:00 Renal/: No: Bladder Distention Penis: Yes: Other (desquamating skin, glans and foreskin) Labs: CBC, BMP 08/01/19 07:23 08/01/19 07:23 Problem List - Problems (1) Fixed drug eruption Assessment/Plan: cont local wound care and prednisone Code(s): L27.1 - LOC SKIN ERUPTION DUE TO DRUGS AND MEDS TAKEN INTERNALLY
[2019-08-01] MEDS ORDERED: INSULIN (NOVOLOG) ASPART 100 UNITS/ML 10ML VIAL ONE (20:57)
[2019-08-01] MEDS: ATORVASTATIN CA 40 MG TABLET (FP) PO SCH (21:29)
[2019-08-01 23:21] VITALS: BMI 27.3
[2019-08-02] MEDS: INSULIN SLIDING SCALE (NOVOLOG) 1 VIAL SQ SCH (06:02)
--- NOTE | 2019-08-02 07:53 | DS ---
Physical Exam: SUBJECTIVE: Pt reports he still feels fine. Discussed with pt's son about discharge instructions and continued follow-up. OBJECTIVE: Vital Signs Period Temp Pulse Resp BP Sys/Lowery Pulse Ox Last 24 Hr 97.8 F-98.8 F 54-84 18-20 151-174/62-76 96 PHYSICAL EXAM PE: GEN: NAD, awake, alert, sittin in bed HEENT: NC/AT, no mucosal ulcers, MMM Neck: No JVD appreciated LUNG: CTA b/l no wheezes CARD: RRR no murmurs appreciated ABD: Soft, slightly TTP, nondistended, obese, areas of ruptured bullae without any evidence of infection. no drainage noted. EXT: no edema LABS Laboratory Results - last 24 hr 08/01/19 08/01/19 08/01/19 07:23 07:23 11:39 WBC 12.0 H RBC 4.16 Hgb 12.2 Hct 36.8 MCV 88.5 MCH 29.3 MCHC 33.1 RDW 14.9 Plt Count 419 MPV 7.3 L Sodium 142 Potassium 4.1 Chloride 105 Carbon Dioxide 29 Anion Gap 8 BUN 27.0 H Creatinine 0.9 Est GFR (CKD-EPI)AfAm 93.82 Est GFR (CKD-EPI)NonAf 80.95 POC Glucometer 121 Random Glucose 127 H Calcium 9.0 08/01/19 08/01/19 08/02/19 16:54 21:27 05:51 WBC RBC Hgb Hct MCV MCH MCHC RDW Plt Count MPV Sodium Potassium Chloride Carbon Dioxide Anion Gap BUN Creatinine Est GFR (CKD-EPI)AfAm Est GFR (CKD-EPI)NonAf POC Glucometer 206 238 119 Random Glucose Calcium Microbiology 07/29/19 14:25 Blood - Peripheral Venous Blood Culture - Preliminary NO GROWTH OBTAINED AFTER 72 HOURS, INCUBATION TO CONTINUE FOR 2 DAYS. 07/29/19 14:25 Blood - Peripheral Venous Blood Culture - Preliminary NO GROWTH OBTAINED AFTER 72 HOURS, INCUBATION TO CONTINUE FOR 2 DAYS. 07/29/19 14:04 Buttock - Right Gram Stain - Final 07/29/19 14:04 Buttock - Right Wound Culture - Final Klebsiella Pneumoniae Klebsiella Pneumoniae#2 Alpha Hemolytic Streptococcus Bifidobacterium Species 07/29/19 20:30 Abdomen Gram Stain - Final 07/29/19 20:30 Abdomen Wound Culture - Final NO GROWTH OF AEROBIC ORGANISMS AFTER 48 HOURS INCUBATION 07/31/19 14:25 Blood - Peripheral Venous CHAN Preparation - Preliminary 07/31/19 14:25 Blood - Peripheral Venous Fungal Culture - Preliminary 07/29/19 14:04 Perineal Gram Stain - Final 07/29/19 14:04 Perineal Wound Culture - Final NO AEROBIC OR ANAEROBIC GROWTH OBTAINED. 07/29/19 16:12 Urine - Urine Clean Catch Urine Culture - Final NO GROWTH OBTAINED Active Medications Aluminum Sulfate/Calcium Acetate ([place] -) 1.9 gm TP DAILY [facility] Last Admin: 08/01/19 15:17 Dose: 1.9 gm Amlodipine Besylate (Norvasc -) 10 mg PO DAILY [facility] Last Admin: 08/01/19 10:20 Dose: 10 mg Atorvastatin Calcium (Lipitor -) 40 mg PO HS [facility] Last Admin: 08/01/19 21:29 Dose: 40 mg Insulin Aspart (Novolog Vial Sliding Scale -) 1 vial SQ ACHS [facility]; Protocol Last Admin: 08/02/19 06:02 Dose: Not Given Lisinopril (Prinivil) 40 mg PO DAILY [facility] Metoprolol Tartrate (Lopressor -) 50 mg PO DAILY [facility] Last Admin: 08/01/19 10:20 Dose: 50 mg Prednisone (Deltasone -) 60 mg PO DAILY [facility] Last Admin: 08/01/19 10:20 Dose: 60 mg IMAGING: Abd/Pelvis CT scan: IMPRESSION: 1. No evidence of abdominal wall masses, fluid collections, significant inflammatory changes or ventral hernia. 2. No acute pathology within the abdomen or pelvis. Please see above discussion. Chest XR: Impression: Linear bands of platelike subsegmental atelectasis lingula and left lower lobe, no signs of pneumonia, no acute changes otherwise seen, clinical correlation. HOSPITAL COURSE: Date of Admission:07/29/19 Date of Discharge: 08/02/19 Pt was admitted on 07/29/19 due to acute bullous rash 2/2 to gentamicin and bactrim dosages on outpatient setting. Pt had doses discontinued immediately was placed on Hydrocortisone 100mg q8h IV alongside of fluids to compensate for losses. Pt was seen by dermatology who reported this was only a drug eruption rash and not SJS. Wounds remained uninfected throughout and bacitracin was applied to ruptured bullae. Pt was seen by urology due to involvement of glans and penile foreskin who reported to only treat his rash as his urination was unaffected. Wound consultation noted to continue bacitracin and Silvadene with covered gauze and to avoid complete submersion of wounds. Pt is also being set up at the wound care center to continue follow-up. Minutes to complete discharge: 33 <Saeid Lawler - Last Filed: 08/02/19 21:14> Physical Exam: I have seen and examined the indicated patient independently/along with the resident team. I have personally verified all rosario exam findings and historical components. I have personally interpreted all diagnostics indicated per todays orders and reviewed interpretation of indicated subspecialty services. Agree with resident DC plan. Pain improved; wound care demonstrated. FU appointment offered by CM but destinee declined. Counseled regarding wound care with urology. Rx provided per wound care sgy instructions; appreciate input. 10 system review of systems completed and is negative aside from history of present illness VS, labs, imaging reviewed NAD, AAO, resting comfortably in bed. RRR s1/2 no mgr Normal muscle tone, moves all 5 extremities with normal apparent strength Neck is supple, trachea midline, no carol LN Lungs CTAB with sym expansion NT ND +BS no carol organomegaly CN2-12 wnl; no FND NC AT EOMI PERRLA Normal mood, appropriate behavior, euthymic affect Aforementioned skin findings improved with no s/s SJS and no mucosal involvement. Agree with hospital course per resident note Will treat per guidelines for drug reaction; per derm this did not represent SJS. Full Code Agree with DC planning as indicated. <Sonido Juan - Last Filed: 08/09/19 02:59> Discharge Summary Problems reviewed: Yes Reason For Visit: GENERALIZED SKIN ERUPTION DUE TO DRIUGS AND MEDICA Current Active Problems Fixed drug eruption (Acute) Generalized skin eruption due to drugs and medicaments (Acute) - Home Medications Comprehensive Discharge Medication List: Ambulatory Orders Amlodipine Besylate 10 mg PO DAILY 07/29/19 Aspirin 81 mg PO DAILY 07/29/19 Atorvastatin Ca [Lipitor] 40 mg PO HS 07/29/19 Colchicine 0.6 mg PO DAILY 07/29/19 Lisinopril [Prinivil -] 40 mg PO DAILY 07/29/19 Metoprolol Tartrate 50 mg PO DAILY 07/29/19 Tamsulosin HCl [Flomax] 0.4 mg PO DAILY 07/29/19 <Saeid Lawler - Last Filed: 08/02/19 21:14> Problems reviewed: Yes - Home Medications Comprehensive Discharge Medication List: Ambulatory Orders Amlodipine Besylate 10 mg PO DAILY 07/29/19 Atorvastatin Ca [Lipitor] 40 mg PO HS 07/29/19 Colchicine 0.6 mg PO DAILY 07/29/19 Lisinopril [Prinivil -] 40 mg PO DAILY 07/29/19 Metoprolol Tartrate 50 mg PO DAILY 07/29/19 Tamsulosin HCl [Flomax] 0.4 mg PO DAILY 07/29/19 Gauze Bandage [Gauze] 1 each TP DAILY #1 box 08/02/19 Silver Sulfadiazine [Silvadene] 1 applic TP DAILY #1 cream..g. 08/02/19 <Sonido Juan - Last Filed: 08/09/19 02:59> Condition: Stable - Instructions Diet, Activity, Other Instructions: You were seen due to the rash that developed from your antibiotics. PLEASE AVOID gentamicin, pencillin, and bactrim. For your wounds use bacitracin with gauze overlying them and change them daily. Continue to take benadryl to help with your rash, but avoid driving or using heavy machinery as it can make you sleepy Please continue your home medications as below. Follow-up: Please follow-up with Dr. Silva in 3-5 days. Please follow-up with Dr. Blanco in 1 week for your wounds Please follow-up with Dr. Magaly Randolph (dermatology) for your wounds as well. Please follow-up with wound care as well Referrals: Joyce Randolph MD [Staff Physician] - Lexx Silva [Primary Care Provider] - (3-5 days) Jeanmarie Blanco MD [Staff Physician] - Disposition: HOME This patient is new to me today: No Emergency Visit: Yes ED Registration Date: 07/29/19 Care time: The patient presented to the Emergency Department on the above date and was hospitalized for further evaluation of their emergent condition. Critical Care patient: No - Discharge Referral Referred to [facility] No <Saeid Lawelr - Last Filed: 08/02/19 21:14> This patient is new to me today: No Emergency Visit: Yes ED Registration Date: 07/29/19 Care time: The patient presented to the Emergency Department on the above date and was hospitalized for further evaluation of their emergent condition. Critical Care patient: No - Discharge Referral Referred to [facility] No <Sonido Juan - Last Filed: 08/09/19 02:59> ATTENDING PHYSICIAN STATEMENT I saw and evaluated the patient. I reviewed the resident's note and discussed the case with the resident. I agree with the resident's findings and plan as documented. SUBJECTIVE: OBJECTIVE: ASSESSMENT AND PLAN: <Saeid Lawler - Last Filed: 08/02/19 21:14> ATTENDING PHYSICIAN STATEMENT I saw and evaluated the patient. I reviewed the resident's note and discussed the case with the resident. I agree with the resident's findings and plan as documented. SUBJECTIVE: OBJECTIVE: ASSESSMENT AND PLAN: <Sonido Juan - Last Filed: 08/09/19 02:59>
[2019-08-02 08:15] VITALS: TEMP 97.7
[2019-08-02 09:10] LABS: HEMATOCRIT 40.2 % (35.4-49); HEMOGLOBIN 13.3 GM/dL (11.7-16.9); MCH 29.6 pg (25.7-33.7); MCHC 33.1 g/dl (32.0-35.9); MEAN CELL VOLUME 89.2 fl (80-96); MEAN PLT VOLUME 6.8 fl (7.5-11.1); PLATELET COUNT 427 K/MM3 (134-434); RBC 4.51 M/mm3 (4.00-5.60); RDW 15.1 % (11.9-15.9); WHITE BLOOD COUNT 16.3 K/mm3 (4.0-10.0)
[2019-08-02] MEDS ORDERED: LISINOPRIL 20 MG TABLET (FP) PO SCH (10:00)
[2019-08-02] MEDS: predniSONE 20 MG TABLET (UD) PO SCH (10:22)
[2019-08-02] MEDS: amLODIPine BESYLATE 10 MG TABLET (FP) PO SCH (10:23)
[2019-08-02] MEDS: METOPROLOL TARTRATE 50 MG TABLET (FP) PO SCH (10:23)
[2019-08-02] MEDS: CALCIUM ACETATE/AL SULFATE TOP 1.9 GM/PACKET PACKET TP SCH (10:23)
[2019-08-02 11:22] VITALS: BP 137/73; PULSE 72
--- NOTE | 2019-08-02 11:48 | PN ---
Progress Note, Physician - Current Medication List Current Medications: Active Medications Aluminum Sulfate/Calcium Acetate ([place] -) 1.9 gm TP DAILY [facility] Last Admin: 08/02/19 10:23 Dose: 1.9 gm Amlodipine Besylate (Norvasc -) 10 mg PO DAILY [facility] Last Admin: 08/02/19 10:23 Dose: 10 mg Atorvastatin Calcium (Lipitor -) 40 mg PO HS [facility] Last Admin: 08/01/19 21:29 Dose: 40 mg Insulin Aspart (Novolog Vial Sliding Scale -) 1 vial SQ ACHS [facility]; Protocol Last Admin: 08/02/19 06:02 Dose: Not Given Lisinopril (Prinivil) 40 mg PO DAILY [facility] Last Admin: 08/02/19 10:23 Dose: 40 mg Metoprolol Tartrate (Lopressor -) 50 mg PO DAILY [facility] Last Admin: 08/02/19 10:23 Dose: 50 mg Prednisone (Deltasone -) 60 mg PO DAILY [facility] Last Admin: 08/02/19 10:22 Dose: 60 mg - Objective Vital Signs: Vital Signs Temperature 97.7 F 08/02/19 06:00 Pulse Rate 72 08/02/19 10:00 Respiratory Rate 18 08/02/19 10:00 Blood Pressure 137/73 08/02/19 10:00 O2 Sat by Pulse Oximetry (%) 96 08/01/19 21:00 Labs: CBC, BMP 08/02/19 08:55 08/01/19 07:23
== END 2019-08-02 12:29 | disposition home or self-care (01) | DRG 607 ==
LOC: JER 11:42 → JERBED 15:06 → J6S 17:38
PROVIDERS: ADMIT Internal Medicine; ATTEND Internal Medicine
DX: L27.1 Localized skin eruption due to drugs and medicaments taken internally (principal); T36.5X5A Adverse effect of aminoglycosides, initial encounter; T36.8X5A Adverse effect of other systemic antibiotics, initial encounter; I10 Essential (primary) hypertension; R73.03 Prediabetes; L30.8 Other specified dermatitis; Z85.46 Personal history of malignant neoplasm of prostate; Z88.0 Allergy status to penicillin
CPT/HCPCS: 36415; 71045-TC-FY; 74176-TC; 80048; 80053; 81003; 82550; 82962; 83036; 83605; 84443; 84484; 85025; 85027; 85651; 86140; 86593; 86695; 86696; 87040; 87070; 87076; 87077; 87086; 87102; 87186; 87205; 87210; 87255; 87389; 87491; 87591; 93005; 93010; 99283-25; G0008; Q2036

== ENCOUNTER 2020-06-07 05:00 | Day surgery (SDC) | payer OTHER ==
[2020-06-06 10:13] VITALS: BMI 27.0
[2020-06-07] MEDS ORDERED: ONDANSETRON 4 MG/2 ML VIAL IVPUSH PRN (08:19)
[2020-06-07] MEDS ORDERED: PROMETHAZINE HCL 25 MG/1 ML VIAL IVPUSH PRN (08:19)
[2020-06-07] MEDS ORDERED: LACTATED RINGERS SOLUTION 1,000 ML IV SCH (08:30)
[2020-06-07] MEDS ORDERED: PROPOFOL 20 ML ONE (08:59)
[2020-06-07] MEDS ORDERED: MIDAZOLAM HCL 2 MG/2 ML SINGLE DOSE VIAL ONE (08:59)
[2020-06-07] MEDS ORDERED: LIDOCAINE HCL/PF 2% SDV 5ML VIAL ONE (09:05)
[2020-06-07] MEDS ORDERED: DEXAMETHASONE SOD PHOSPHATE 4 MG/1 ML VIAL ONE (09:15)
[2020-06-07] MEDS ORDERED: GLYCOPYRROLATE 0.2 MG/1 ML VIAL ONE (09:40)
[2020-06-07] MEDS ORDERED: ACETAMINOPHEN 325 MG TABLET (FP) PO PRN (09:45)
--- NOTE | 2020-06-07 11:24 | CONS ---
DATE OF CONSULTATION: 06/07/2020 Patient is an 80-year-old male, presented for ambulatory surgery for cystoscopy and a TUR of bladder tumor. The patient does have history of diabetes, COPD, gout, dyslipidemia, hypertension, osteoarthritis, prostate cancer, and history of bladder tumors. ALLERGIES: He is allergic to BACTRIM and PENICILLIN. MEDICATIONS: He is presently on Norvasc 10 mg, aspirin, Lipitor, insulin, metformin, metoprolol, Flomax, a PPI, Januvia, and hydralazine. PAST SURGICAL HISTORY: He has undergone cystoscopy with bladder tumor resections in the past. PHYSICAL EXAMINATION: General: Physical exam reveals a well-developed adult male in no apparent distress. Abdomen: Soft. Chest: Clear. Genitalia: Atraumatic. Phallus is normal. Meatus is adequate. Prostate is 2+, firm, nontender. Extremities: Revealed full range of motion with no cyanosis, clubbing, or edema. The patient is cleared for a cystoscopy and a TUR bladder tumor. This was explained to patient, and he agrees. Jamil [id number]
[2020-06-07] MEDS ORDERED: oxyCODONE HCL 5 MG TABLET ONE (12:25)
--- NOTE | 2020-06-07 13:09 | OP ---
DATE OF OPERATION: 06/07/2020 PREOPERATIVE DIAGNOSIS: Intermittent gross hematuria, history of prostate cancer, bladder tumor. POSTOPERATIVE DIAGNOSIS: Prostatic urethra lesion. OPERATIVE PROCEDURE: Cystoscopy and transurethral resection of prostatic urethra. ANESTHESIA: General. DESCRIPTION OF PROCEDURE: Under above stated anesthesia, patient was prepped and draped in the usual sterile manner, placed in the dorsal lithotomy position. Cystoscopy revealed a normal anterior urethra. Prostatic urethra revealed a scarred prostate with contraction. Bladder was entered. Urine was collected for C&S and cytology. Inspection of the bladder revealed multiple diverticula. No overt lesions or calculi were seen. There was bleeding hyperemic tissue in the prostatic urethra. Therefore, the prostate at the bladder neck level was resected from the 6 o'clock position to the 12 o'clock position on the right side. Same thing was done on the left side. Prostate chips were evacuated with an TapEngage evacuator. No active bleeding was noted. A 24-Swedish 30-mL Sawyer was inserted. This was connected to a leg bag. The patient tolerated the procedure well. He returned to the recovery room in good condition. Jamil [id number]
[2020-06-07 15:01] VITALS: BP 145/84; PULSE 60; TEMP 96.4
--- NOTE | 2020-06-11 15:05 | PATH ---
Cytology Non-Gynecological Report Patient Name: ODALYS FREDERICK [facility]. Rec. #: [id number] /Age/Gender: 1940 (Age: 80) / M Account: [id number] Location: [facility] SURGICAL Taken: 06/07/2020 Received: 06/07/2020 Reported: 06/11/2020 Physicians: Piotr Pascual M.D. Specimen(s) Received BLADDER URINE Clinical History Hematuria Final Diagnosis BLADDER URINE FOR CYTOLOGY: SATISFACTORY FOR EVALUATION. NEGATIVE FOR HIGH GRADE UROTHELIAL CARCINOMA. SCATTERED UROTHELIAL FRAGMENTS, NUMEROUS RED BLOOD CELLS AND MANY NEUTROPHILS PRESENT, FAVOR REACTIVE CHANGE. See concurrent pathology report [id number]. Electronically Signed Erin Nunez M.D. Gross Description Approximately 100cc of pink fluid received fresh. One cytospine and one cell block prepared.
--- NOTE | 2020-06-11 15:30 | PATH ---
Surgical Pathology Report Patient Name: DOALYS FREDERICK Med. Rec. #: [id number] /Age/Gender: 1940 (Age: 80) / M Account: [id number] Location: [facility] SURGICAL Taken: 06/07/2020 Received: 06/07/2020 Reported: 06/11/2020 Physicians: Piotr Pascual M.D. Specimen(s) Received PROSTATE CHIPS Clinical History Hematuria Final Diagnosis PROSTATIC CHIPS, TRANSURETHRAL RESECTION OF THE PROSTATE: PORTION OF UROTHELIAL MUCOSA AND PREDOMINANTLY FIBROUS TISSUE WITH FEW GLANDS SHOWING MARKED ACUTE AND CHRONIC INFLAMMATION, STROMAL HYPERPLASIA, FOCAL FIBROSIS, AND REACTIVE CHANGE. NO EVIDENCE OF CARCINOMA. Comment: Immunohistochemical stain AE1/3 performed and interpreted at [facility] was utilized for evaluation. Positive and negative controls (internal if applicable) show appropriate results. Electronically Signed Erin Nunez M.D. Gross Description Received in formalin labeled "prostate chips" is a 2g, 3 x 2 x 0.4 cm aggregate of mabry, firm to rubbery portions of tissue, consistent with prostate chips. Entire specimen is submitted in 1 cassette. __ MLSZ/06/07/2020 sanml/06/07/2020
== END 2020-06-07 12:55 | disposition home or self-care (01) ==
LOC: JASU-SURG 05:00
PROVIDERS: ATTEND Urology
PROC: 0TBC8ZZ Excision of Bladder Neck, Via Natural or Artificial Opening Endoscopic (ICD-10-PCS; principal; 2020-06-07 09:00)
DX: D30.3 Benign neoplasm of bladder (principal); R31.0 Gross hematuria
CPT/HCPCS: 82962; 87086; 87186; 88108; 88305-TC; 88342-TC; 94760

== ENCOUNTER 2020-06-10 00:20 | Emergency (ER) | payer OTHER ==
[2020-06-10 00:53] VITALS: BP 165/84; PULSE 102; TEMP 97.2; BMI 26.6
[2020-06-10] MEDS ORDERED: LIDOCAINE HCL 2% JELLY 10 ML CARTRIDGE ONE (00:56)
--- NOTE | 2020-06-10 01:20 | PDOC ---
History of Present Illness - General Chief Complaint: Urinary Catheter Problem Stated Complaint: POST OP CATHETER PROBLEMS Time Seen by Provider: 06/10/20 01:18 - History of Present Illness Initial Comments: 06/10/20 01:22 HPI 80 y/o M past medical history significant for Pre-DM, Prostate CA, HTN, gout presents to the ED after leakage of urine around vides insertion site. Pt is s/p TURP on 06/07 and has follow up appointment with urology Dr. Pascual this a.m. vides catheter was placed after TURP procedure and had been draining till a few hours ago. Pt denies any abdominal pain, trauma at vides site or any other injury no other complaints PMHx: as noted above ROS: as noted Allergies: NKDA ROS: GENERAL/CONSTITUTIONAL: No fever or chills. No weakness. HEAD, EYES, EARS, NOSE AND THROAT: No change in vision. No ear pain or discharge. No sore throat. CARDIOVASCULAR: No chest pain or shortness of breath RESPIRATORY: No cough, wheezing, or hemoptysis. GASTROINTESTINAL: No nausea, vomiting, diarrhea or constipation. GENITOURINARY: no hematuria MUSCULOSKELETAL: No joint or muscle swelling or pain. No neck or back pain. SKIN: No rash NEUROLOGIC: No headache, vertigo, loss of consciousness, or change in strength/sensation. ENDOCRINE: No increased thirst. No abnormal weight change HEMATOLOGIC/LYMPHATIC: No anemia, easy bleeding, or history of blood clots. ALLERGIC/IMMUNOLOGIC: No hives or skin allergy. PE: GENERAL: Awake, alert, and fully oriented, in no acute distress HEAD: No signs of trauma, normocephalic, atraumatic EYES: PERRLA, EOMI, sclera anicteric, conjunctiva clear ENT: Auricles normal inspection, hearing grossly normal, nares patent, oropharynx clear without exudates. Moist mucosa NECK: Normal ROM, supple, no lymphadenopathy, JVD, or masses LUNGS: No distress, speaks full sentences, clear to auscultation bilaterally HEART: Regular rate and rhythm, normal S1 and S2, no murmurs, rubs or gallops, peripheral pulses normal and equal bilaterally. ABDOMEN: Soft, nontender, normoactive bowel sounds. No guarding, no rebound. No masses EXTREMITIES : Normal inspection, Normal range of motion, no edema. No clubbing or cyanosis NEUROLOGICAL: Cranial nerves II through XII grossly intact. Normal speech, normal gait, no focal sensorimotor deficits SKIN: Warm, Dry, normal turgor, no rashes or lesions noted MDM ED course vides taken out with urine expelled. blockage observed at tip of vides catheter pt able to void 50cc of urine shortly after catheter removed ultrasound at bedside,distended bladder not observed. pt has follow up this a.m, feeling better after catheter removal. will follow up with dr. pascual this morning. meds: Past History - Medical History Allergies/Adverse Reactions: Allergies Allergy/AdvReac Type Severity Reaction Status Date / Time gentamicin Allergy Severe Verified 06/10/20 00:53 Penicillins Allergy Severe Hives Verified 06/10/20 00:53 bactrim Allergy Severe Uncoded 06/10/20 00:53 Home Medications: Ambulatory Orders Amlodipine Besylate 10 mg PO DAILY 07/29/19 Atorvastatin Ca [Lipitor] 40 mg PO DAILY 07/29/19 Colchicine 0.6 mg PO DAILY 07/29/19 Lisinopril [Prinivil -] 40 mg PO DAILY 07/29/19 Metoprolol Tartrate 50 mg PO DAILY 07/29/19 Tamsulosin HCl [Flomax] 0.4 mg PO DAILY 07/29/19 Hydralazine HCl 50 mg PO TID 06/06/20 Anemia: No Asthma: No Cancer: No Cardiac Disorders: No CVA: No COPD: No CHF: No Dementia: Yes (NO MEDS) Diabetes: Yes (PRE - DM) GI Disorders: No (constipation) Disorders: No HTN: Yes Hypercholesterolemia: Yes Liver Disease: No Seizures: No Thyroid Disease: No - Surgical History Abdominal Surgery: No Appendectomy: No Cardiac Surgery: No Cholecystectomy: No Lung Surgery: No Neurologic Surgery: No Orthopedic Surgery: No - Immunization History Immunization Up to Date: Yes - Psycho-Social/Smoking History Smoking Status: No Smoking History: Never smoked Have you smoked in the past 12 months: No Number of Cigarettes Smoked Daily: 0 - Substance Abuse Hx (Audit-C & DAST Scrn) How often the patient has a drink containing alcohol: Monthly or less Number of drinks the patient has on a typical day: 1 or 2 How often the patient has six or more drinks on one occasion: Never Score: In Men: 4 or > Positive; In Women: 3 or > Positive: 1 Screen Result (Pos requires Nsg. Audit-10AR): Negative In the last yr the pt used illegal drug/Rx for NonMed reason: No Score: Yes response is considered Positive: 0 Screen Result (Positive result requires Nsg. DAST-10): Negative *Physical Exam - Vital Signs Last Vital Signs Temp Pulse Resp BP Pulse Ox 97.2 F L 102 H 18 165/84 97 06/10/20 00:49 06/10/20 00:49 06/10/20 00:49 06/10/20 00:49 06/10/20 00:49 Discharge - Discharge Information Problems reviewed: Yes Clinical Impression/Diagnosis: Vides catheter problem Condition: Improved Disposition: HOME - Follow up/Referral Referrals: Lexx Silva [Primary Care Provider] - Piotr Pascual MD [Staff Physician] - - Patient Discharge Instructions Additional Instructions: 1) Please follow-up with your primary care doctor in the next 1-2 days. Please call tomorrow for an appointment. If you cannot follow-up with your primary care doctor please return to the ED for any urgent issues. r. 3) If you have any worsening of symptoms or any other concerns please return to the ED immediately. - Post Discharge Activity
--- NOTE | 2020-06-10 01:52 | PDOC ---
Documentation entered by Lily Rae SCRIBE, acting as scribe for Danyelle Moya MD. Danyelle Moya MD: This documentation has been prepared by the Butch garcia Sydney, SCRIBE, under my direction and personally reviewed by me in its entirety. I confirm that the documentation accurately reflects all work, treatment, procedures, and medical decision making performed by me. Attending Attestation - Resident Resident Name: Bharti Hare - ED Attending Attestation I have performed the following: I have examined & evaluated the patient, The case was reviewed & discussed with the resident, I agree w/resident's findings & plan, Exceptions are as noted - HPI HPI: 06/10/20 01:47 80-year-old male history of hypertension hyperlipidemia prediabetes status post TURP 48 hours ago here today with dysfunctional Sawyer catheter patient was scheduled to have his catheter removed in the a.m. by his urologist however today it stopped draining he was having leaking around the Sawyer catheter denies any fevers chills or any back pain. - Physicial Exam PE: 06/10/20 02:02 pt left prior to my complete exam. - Medical Decision Making 06/10/20 01:51 80-year-old male status post therapy with urinary retention and dysfunctional Sawyer drainage around the Sawyer catheter. Plan DC Sawyer's patient was to have the catheter DC'd the day following will give a trial of urination Patient was able to urinate following the Sawyer removal post void residual showed to be none will discharge home has follow-up with his urologist in 8 hours. left prior to my physical exam. will see urology in am. 06/10/20 02:02 Discharge - Discharge Information Problems reviewed: Yes Clinical Impression/Diagnosis: Sawyer catheter problem Condition: Improved Disposition: HOME - Follow up/Referral Referrals: Lexx Silva [Primary Care Provider] - Piotr Pascual MD [Staff Physician] - - Patient Discharge Instructions Additional Instructions: 1) Please follow-up with your primary care doctor in the next 1-2 days. Please call tomorrow for an appointment. If you cannot follow-up with your primary care doctor please return to the ED for any urgent issues. r. 3) If you have any worsening of symptoms or any other concerns please return to the ED immediately. - Post Discharge Activity
== END 2020-06-10 01:58 | disposition home or self-care (01) ==
LOC: JER 00:20
DX: Z46.6 Encounter for fitting and adjustment of urinary device (principal)
CPT/HCPCS: 99283-25

== ENCOUNTER 2020-09-06 17:18 | Inpatient (IN) | payer OTHER ==
[2020-09-06] MEDS ORDERED: ACETAMINOPHEN 1000 MG/100 ML VIAL (NON FORMULARY) IVPB ONE (18:16)
[2020-09-06] MEDS ORDERED: ACETAMINOPHEN INJECTION 100 ML IVPB ONE (18:56)
[2020-09-06 19:32] LABS: BASO % 0.4 % (0-2.0); EOS % 0.9 % (0-4.5); HEMATOCRIT 39.3 % (35.4-49); HEMOGLOBIN 12.9 GM/dL (11.7-16.9); LYMPH % 25.3 % (8-40); MCH 29.3 pg (25.7-33.7); MCHC 32.8 g/dl (32.0-35.9); MEAN CELL VOLUME 89.4 fl (80-96); MEAN PLT VOLUME 7.8 fl (7.5-11.1); MONO % 11.4 % (3.8-10.2); PLATELET COUNT 388 K/MM3 (134-434); RDW 15.8 % (11.9-15.9); WHITE BLOOD COUNT 5.4 K/mm3 (4.0-10.0)
[2020-09-06 19:40] LABS: INR 0.88 (0.83-1.09); PROTHROMBIN TIME (PATIENT) 10.9 SEC (9.7-13.0)
[2020-09-06 19:43] LABS: ACTIVATED PTT 29.5 SECONDS (25.2-36.5)
[2020-09-06 19:52] LABS: CHLORIDE 97 mmol/L (98-107); POTASSIUM 4.1 mmol/L (3.5-5.1); SODIUM 134 mmol/L (136-145)
[2020-09-06 19:54] LABS: CALCIUM 8.7 mg/dL (8.5-10.1)
[2020-09-06 19:55] LABS: ALBUMIN 3.3 g/dl (3.4-5.0); ANION GAP 7 MMOL/L (8-16); BLOOD UREA NITROGEN 9.5 mg/dL (7-18); CO2 30 mmol/L (21-32); GLUCOSE,RANDOM 112 mg/dL (74-106)
[2020-09-06 19:58] LABS: CREATININE 1.1 mg/dL (0.55-1.3); SGOT/AST 48 U/L (15-37); SGPT/ALT 52 U/L (13-61)
[2020-09-06 19:59] LABS: BILIRUBIN,TOTAL 0.5 mg/dL (0.2-1); TOT PROT 7.2 g/dl (6.4-8.2)
[2020-09-06 20:01] LABS: ALK PHOS 79 U/L (45-117)
[2020-09-06 20:50] LABS: EPI CELLS 5 /uL (0-25.1); HYALINE CASTS 0 /uL (0-3.1); URINE APPEARANCE CLEAR; URINE BACTERIA 15 /uL (0-1359); URINE BILIRUBIN NEGATIVE (NEGATIVE); URINE COLOR YELLOW; URINE GLUCOSE (UA) NEGATIVE (NEGATIVE); URINE KETONE NEGATIVE (NEGATIVE); URINE LEUK ESTERASE NEGATIVE (NEGATIVE); URINE NITRITE NEGATIVE (NEGATIVE); URINE PROTEIN 2+ (NEGATIVE); URINE RBC 6 /uL (0-23.9); URINE UROBILINOGEN 0.2 mg/dL (0.2-1.0); URINE WBC 5 /uL (0-25.8)
[2020-09-06] MEDS ORDERED: ASPIRIN 81 MG CHEWABLE TABLETS PO ONE (20:50)
[2020-09-06] MEDS ORDERED: hydrALAZINE HCL 50 MG TABLET (FP) PO ONE (20:51)
[2020-09-06] MEDS ORDERED: ATOMOXETINE HCL 40 MG CAPSULE PO ONE (20:51)
[2020-09-06] MEDS ORDERED: hydrALAZINE HCL 25 MG TABLET (FP) ONE (20:57)
[2020-09-06] MEDS ORDERED: ASPIRIN 81 MG CHEWABLE TABLETS ONE (20:57)
[2020-09-06] MEDS ORDERED: ATORVASTATIN CA 40 MG TABLET (FP) PO ONE (21:19)
[2020-09-06] MEDS ORDERED: ATORVASTATIN CA 40 MG TABLET (FP) ONE (21:50)
[2020-09-07] MEDS ORDERED: hydrALAZINE HCL 25 MG TABLET (FP) ONE (07:15)
[2020-09-07] MEDS: hydrALAZINE HCL 50 MG TABLET (FP) PO SCH ×3 (07:17→22:03)
[2020-09-07] MEDS ORDERED: METOPROLOL TARTRATE 50 MG TABLET (FP) PO SCH (10:00)
[2020-09-07 10:41] LABS: CHOLESTEROL 133 mg/dL (50-200); TRIGLYCERIDES 97 mg/dL (0-150)
[2020-09-07 10:42] LABS: LDL CHOLESTEROL (ONLY SJRH) 82 mg/dL (5-100)
[2020-09-07 10:43] LABS: HDL CHOLESTEROL 41 mg/dL (40-60)
[2020-09-07 10:44] LABS: N-TERMINAL BNP 608.9 pg/ml (5-450)
[2020-09-07] MEDS: amLODIPine BESYLATE 10 MG TABLET (FP) PO SCH (11:00)
[2020-09-07] MEDS: ASPIRIN COATED 81 MG TABLET.EC PO SCH (11:00)
[2020-09-07] MEDS: TAMSULOSIN HCL 0.4 MG CAP PO SCH (11:00)
[2020-09-07] MEDS ORDERED: LISINOPRIL 20 MG TABLET ONE ×2 (11:28→11:41)
[2020-09-07] MEDS ORDERED: ASPIRIN COATED 81 MG TABLET.EC ONE (11:28)
[2020-09-07] MEDS ORDERED: amLODIPine BESYLATE 5 MG TABLET (FP) ONE (11:28)
[2020-09-07] MEDS ORDERED: HEPARIN NA (PORCINE) 5,000 UNITS/ML 1ML VIAL ONE (11:29)
[2020-09-07] MEDS ORDERED: TAMSULOSIN HCL 0.4 MG CAP ONE (11:29)
[2020-09-07] MEDS: HEPARIN NA (PORCINE) 5,000 UNITS/ML 1ML VIAL SQ SCH ×2 (11:48→22:03)
[2020-09-07] MEDS: LISINOPRIL 20 MG TABLET PO SCH (11:48)
[2020-09-07] MEDS: ATORVASTATIN CA 40 MG TABLET (FP) PO SCH (22:03)
[2020-09-07 23:28] VITALS: BMI 29.1
[2020-09-08] MEDS: hydrALAZINE HCL 50 MG TABLET (FP) PO SCH ×3 (06:12→21:08)
[2020-09-08 07:38] LABS: BASO % 0.4 % (0-2.0); EOS % 2.9 % (0-4.5); HEMATOCRIT 35.7 % (35.4-49); HEMOGLOBIN 11.9 GM/dL (11.7-16.9); LYMPH % 34.1 % (8-40); MCH 29.2 pg (25.7-33.7); MCHC 33.4 g/dl (32.0-35.9); MEAN CELL VOLUME 87.3 fl (80-96); MEAN PLT VOLUME 7.7 fl (7.5-11.1); MONO % 12.2 % (3.8-10.2); NEUT % 50.4 % (42.8-82.8); PLATELET COUNT 456 K/MM3 (134-434); RBC 4.09 M/mm3 (4.00-5.60); RDW 15.8 % (11.9-15.9); WHITE BLOOD COUNT 4.7 K/mm3 (4.0-10.0)
[2020-09-08 07:58] LABS: CHLORIDE 104 mmol/L (98-107); POTASSIUM 4.1 mmol/L (3.5-5.1); SODIUM 138 mmol/L (136-145)
[2020-09-08 08:03] LABS: ALBUMIN 2.8 g/dl (3.4-5.0); ANION GAP 5 MMOL/L (8-16); BLOOD UREA NITROGEN 14.1 mg/dL (7-18); CALCIUM 8.4 mg/dL (8.5-10.1); CO2 30 mmol/L (21-32); GLUCOSE,RANDOM 112 mg/dL (74-106)
[2020-09-08 08:06] LABS: CREATININE 1.1 mg/dL (0.55-1.3); SGOT/AST 38 U/L (15-37); SGPT/ALT 43 U/L (13-61)
[2020-09-08 08:07] LABS: BILIRUBIN,TOTAL 1.2 mg/dL (0.2-1)
[2020-09-08 08:08] LABS: TOT PROT 6.4 g/dl (6.4-8.2)
[2020-09-08 08:09] LABS: ALK PHOS 69 U/L (45-117)
[2020-09-08] MEDS: TAMSULOSIN HCL 0.4 MG CAP PO SCH (09:23)
[2020-09-08] MEDS: HEPARIN NA (PORCINE) 5,000 UNITS/ML 1ML VIAL SQ SCH ×2 (09:23→21:09)
[2020-09-08] MEDS: amLODIPine BESYLATE 10 MG TABLET (FP) PO SCH (09:23)
[2020-09-08] MEDS: ASPIRIN COATED 81 MG TABLET.EC PO SCH (09:23)
[2020-09-08] MEDS: LISINOPRIL 20 MG TABLET PO SCH (09:23)
[2020-09-08] MEDS ORDERED: PANTOPRAZOLE 40 MG TABLET PO SCH (17:30)
[2020-09-08] MEDS: DEXAMETHASONE SOD PHOSPHATE 4 MG/1 ML VIAL IVPUSH SCH (18:25)
[2020-09-08] MEDS: ASCORBIC ACID 500 MG TABLET (FP) PO SCH (21:08)
[2020-09-08] MEDS: ATORVASTATIN CA 40 MG TABLET (FP) PO SCH (21:08)
[2020-09-08] MEDS: ZINC SULFATE 220 MG CAPSULE (FP) PO SCH (21:09)
[2020-09-08] MEDS: FAMOTIDINE 20 MG TABLET PO SCH (21:09)
[2020-09-09] MEDS: DEXAMETHASONE SOD PHOSPHATE 4 MG/1 ML VIAL IVPUSH SCH ×3 (01:11→17:34)
[2020-09-09] MEDS: hydrALAZINE HCL 50 MG TABLET (FP) PO SCH ×3 (05:42→21:50)
[2020-09-09 07:11] LABS: BASO % 0.3 % (0-2.0); HEMOGLOBIN 12.6 GM/dL (11.7-16.9); LYMPH % 17.3 % (8-40); MCH 29.2 pg (25.7-33.7); MEAN CELL VOLUME 88.6 fl (80-96); MEAN PLT VOLUME 7.8 fl (7.5-11.1); MONO % 2.4 % (3.8-10.2); PLATELET COUNT 557 K/MM3 (134-434); RDW 15.6 % (11.9-15.9); WHITE BLOOD COUNT 4.8 K/mm3 (4.0-10.0)
[2020-09-09 07:41] LABS: POTASSIUM 4.6 mmol/L (3.5-5.1)
[2020-09-09 07:45] LABS: ALBUMIN 3.2 g/dl (3.4-5.0); BLOOD UREA NITROGEN 17.2 mg/dL (7-18)
[2020-09-09 07:48] LABS: CREATININE 1.2 mg/dL (0.55-1.3)
[2020-09-09] MEDS: TAMSULOSIN HCL 0.4 MG CAP PO SCH (08:34)
[2020-09-09] MEDS: FAMOTIDINE 20 MG TABLET PO SCH ×2 (10:42→21:50)
[2020-09-09] MEDS: ZINC SULFATE 220 MG CAPSULE (FP) PO SCH ×2 (10:42→21:50)
[2020-09-09] MEDS: ASPIRIN COATED 81 MG TABLET.EC PO SCH (10:42)
[2020-09-09] MEDS: amLODIPine BESYLATE 10 MG TABLET (FP) PO SCH (10:42)
[2020-09-09] MEDS: ASCORBIC ACID 500 MG TABLET (FP) PO SCH ×2 (10:42→21:50)
[2020-09-09] MEDS: HEPARIN NA (PORCINE) 5,000 UNITS/ML 1ML VIAL SQ SCH ×2 (10:42→21:50)
[2020-09-09] MEDS: LISINOPRIL 20 MG TABLET PO SCH (10:42)
[2020-09-09] MEDS ORDERED: ALBUTEROL SO4 HFA INHALER IH PRN (13:46)
[2020-09-09] MEDS: ATORVASTATIN CA 40 MG TABLET (FP) PO SCH (21:50)
[2020-09-10] MEDS: DEXAMETHASONE SOD PHOSPHATE 4 MG/1 ML VIAL IVPUSH SCH ×3 (01:48→17:59)
[2020-09-10] MEDS: hydrALAZINE HCL 50 MG TABLET (FP) PO SCH ×3 (06:24→21:49)
[2020-09-10] MEDS: TAMSULOSIN HCL 0.4 MG CAP PO SCH (09:58)
[2020-09-10] MEDS: ASPIRIN COATED 81 MG TABLET.EC PO SCH (09:58)
[2020-09-10] MEDS: amLODIPine BESYLATE 10 MG TABLET (FP) PO SCH (09:58)
[2020-09-10] MEDS: ASCORBIC ACID 500 MG TABLET (FP) PO SCH ×2 (09:58→21:49)
[2020-09-10] MEDS: ZINC SULFATE 220 MG CAPSULE (FP) PO SCH ×2 (09:58→21:49)
[2020-09-10] MEDS: FAMOTIDINE 20 MG TABLET PO SCH ×2 (09:58→21:49)
[2020-09-10] MEDS: HEPARIN NA (PORCINE) 5,000 UNITS/ML 1ML VIAL SQ SCH ×2 (09:59→21:49)
[2020-09-10] MEDS: LISINOPRIL 20 MG TABLET PO SCH (09:59)
[2020-09-10] MEDS: ATORVASTATIN CA 40 MG TABLET (FP) PO SCH (21:49)
[2020-09-11] MEDS: DEXAMETHASONE SOD PHOSPHATE 4 MG/1 ML VIAL IVPUSH SCH ×3 (01:27→18:17)
[2020-09-11] MEDS: hydrALAZINE HCL 50 MG TABLET (FP) PO SCH ×3 (05:57→21:35)
[2020-09-11] MEDS: TAMSULOSIN HCL 0.4 MG CAP PO SCH (08:43)
[2020-09-11] MEDS: HEPARIN NA (PORCINE) 5,000 UNITS/ML 1ML VIAL SQ SCH ×2 (10:06→21:35)
[2020-09-11] MEDS: ASCORBIC ACID 500 MG TABLET (FP) PO SCH ×2 (10:07→21:36)
[2020-09-11] MEDS: ZINC SULFATE 220 MG CAPSULE (FP) PO SCH ×2 (10:07→21:35)
[2020-09-11] MEDS: FAMOTIDINE 20 MG TABLET PO SCH ×2 (10:07→21:35)
[2020-09-11] MEDS: amLODIPine BESYLATE 10 MG TABLET (FP) PO SCH (10:07)
[2020-09-11] MEDS: LISINOPRIL 20 MG TABLET PO SCH (10:07)
[2020-09-11] MEDS: ASPIRIN COATED 81 MG TABLET.EC PO SCH (10:07)
[2020-09-11 12:59] LABS: LDH 218 U/L (87-246)
[2020-09-11] MEDS ORDERED: PT OWN MED DRAWER 7, Y5N ONE ×4 (14:42→21:10)
[2020-09-11] MEDS: CEFUROXIME AXETIL 500 MG TABLET PO SCH ×2 (14:44→21:35)
[2020-09-11] MEDS: OXYBUTYNIN CHLORIDE 5 MG TABLET PO SCH (21:32)
[2020-09-11] MEDS: ATORVASTATIN CA 40 MG TABLET (FP) PO SCH (21:35)
[2020-09-12] MEDS: DEXAMETHASONE SOD PHOSPHATE 4 MG/1 ML VIAL IVPUSH SCH ×2 (01:23→11:25)
[2020-09-12] MEDS: hydrALAZINE HCL 50 MG TABLET (FP) PO SCH (05:38)
[2020-09-12 06:32] VITALS: PULSE 64
[2020-09-12] MEDS ORDERED: PT OWN MED DRAWER 7, Y5N ONE ×3 (08:31→09:22)
[2020-09-12] MEDS: TAMSULOSIN HCL 0.4 MG CAP PO SCH (09:18)
[2020-09-12] MEDS: CEFUROXIME AXETIL 500 MG TABLET PO SCH (09:19)
[2020-09-12] MEDS: ZINC SULFATE 220 MG CAPSULE (FP) PO SCH (09:19)
[2020-09-12] MEDS: LISINOPRIL 20 MG TABLET PO SCH (09:19)
[2020-09-12] MEDS: amLODIPine BESYLATE 10 MG TABLET (FP) PO SCH (09:19)
[2020-09-12] MEDS: FAMOTIDINE 20 MG TABLET PO SCH (09:19)
[2020-09-12] MEDS: ASPIRIN COATED 81 MG TABLET.EC PO SCH (09:19)
[2020-09-12] MEDS: ASCORBIC ACID 500 MG TABLET (FP) PO SCH (09:20)
[2020-09-12] MEDS: HEPARIN NA (PORCINE) 5,000 UNITS/ML 1ML VIAL SQ SCH (09:20)
[2020-09-12] MEDS: OXYBUTYNIN CHLORIDE 5 MG TABLET PO SCH (09:22)
[2020-09-12 09:47] VITALS: BP 147/65; TEMP 97.6
== END 2020-09-12 13:48 | disposition home or self-care (01) | DRG 178 ==
LOC: JER 17:18 → JERBED 21:38 → J4S 09-07 20:45
PROVIDERS: ADMIT Internal Medicine; ATTEND Internal Medicine
DX: U07.1 COVID-19 (principal); J98.11 Atelectasis; R07.89 Other chest pain; I10 Essential (primary) hypertension; E78.5 Hyperlipidemia, unspecified; E11.9 Type 2 diabetes mellitus without complications; N40.0 Benign prostatic hyperplasia without lower urinary tract symptoms; R06.02 Shortness of breath; M41.9 Scoliosis, unspecified; E66.9 Obesity, unspecified; R33.9 Retention of urine, unspecified; Z68.29 Body mass index [BMI] 29.0-29.9, adult; Z85.46 Personal history of malignant neoplasm of prostate; Z88.0 Allergy status to penicillin
CPT/HCPCS: 36415; 70450-TC; 71046-TC-FY; 71250-TC; 76775-TC; 76856-TC; 80053; 80061; 81003; 82550; 82553; 82728; 83036; 83615; 83721; 83880; 84443; 84484; 85025; 85379; 85610; 85730; 86140; 87086; 87186; 93005; 93010; 99285-25; C9803; J0131; J1644; U0003

== ENCOUNTER 2020-12-28 15:16 | Emergency (ER) | payer OTHER ==
[2020-12-28 15:39] VITALS: TEMP 98.4; BMI 29.9
[2020-12-28 17:01] VITALS: BP 172/81; PULSE 78
== END 2020-12-28 17:00 | disposition home or self-care (01) ==
LOC: JER 15:16
DX: R33.9 Retention of urine, unspecified (principal)
CPT/HCPCS: 99284-25

== ENCOUNTER 2021-09-17 13:42 | Inpatient (IN) | payer OTHER ==
[2021-09-17] MEDS ORDERED: ACETAMINOPHEN 1000 MG/100 ML VIAL IVPB ONE (14:35)
[2021-09-17] MEDS ORDERED: ACETAMINOPHEN INJECTION 100 ML IVPB ONE (15:09)
[2021-09-17 15:42] LABS: EOS % 2.9 % (0-4.5); HEMATOCRIT 37.8 % (35.4-49); HEMOGLOBIN 12.7 GM/dL (11.7-16.9); MCH 30.3 pg (25.7-33.7); MCHC 33.6 g/dl (32.0-35.9); MEAN PLT VOLUME 7.7 fl (7.5-11.1); MONO % 9.8 % (3.8-10.2); NEUT % 66.3 % (42.8-82.8); PLATELET COUNT 360 10^3/uL (134-434); RDW 15.5 % (11.9-15.9); WHITE BLOOD COUNT 7.1 K/mm3 (4.0-10.0)
[2021-09-17 15:57] LABS: INR 0.97 (0.83-1.09); PROTHROMBIN TIME (PATIENT) 11.3 SEC (9.7-13.0)
[2021-09-17 15:59] LABS: ACTIVATED PTT 29.6 SECONDS (25.2-36.5)
[2021-09-17 16:07] LABS: CHLORIDE 108 mmol/L (98-107); SODIUM 143 mmol/L (136-145)
[2021-09-17 16:10] LABS: ALBUMIN 2.7 g/dl (3.4-5.0); ANION GAP 6 MMOL/L (8-16); BLOOD UREA NITROGEN 20.6 mg/dL (7-18); CO2 29 mmol/L (21-32); GLUCOSE,RANDOM 133 mg/dL (74-106)
[2021-09-17 16:13] LABS: CREATININE 0.9 mg/dL (0.55-1.3); SGOT/AST 37 U/L (15-37); SGPT/ALT 34 U/L (13-61)
[2021-09-17 16:14] LABS: BILIRUBIN,TOTAL 0.4 mg/dL (0.2-1); TOT PROT 6.4 g/dl (6.4-8.2)
[2021-09-17 16:16] LABS: ALK PHOS 64 U/L (45-117)
[2021-09-17 20:43] VITALS: BMI 27.2
[2021-09-17] MEDS ORDERED: ALBUTEROL SO4 HFA INHALER IH PRN (22:10)
[2021-09-17] MEDS ORDERED: ACETAMINOPHEN 1000 MG/100 ML VIAL IVPB PRN (22:13)
[2021-09-17] MEDS: hydrALAZINE HCL 50 MG TABLET (FP) PO SCH (23:24)
[2021-09-18] MEDS ORDERED: morphine SULFATE/PF 1 MG/2 ML (2cc Syringe - QUVA) IT ONE (01:00)
[2021-09-18] MEDS: hydrALAZINE HCL 50 MG TABLET (FP) PO SCH ×3 (05:14→21:24)
[2021-09-18 07:46] LABS: EOS % 4.1 % (0-4.5); HEMATOCRIT 37.1 % (35.4-49); HEMOGLOBIN 12.6 GM/dL (11.7-16.9); LYMPH % 28.2 % (8-40); MCH 30.3 pg (25.7-33.7); MCHC 34.1 g/dl (32.0-35.9); MEAN PLT VOLUME 7.7 fl (7.5-11.1); MONO % 9.9 % (3.8-10.2); NEUT % 56.8 % (42.8-82.8); PLATELET COUNT 333 10^3/uL (134-434); RBC 4.17 M/mm3 (4.00-5.60); RDW 15.3 % (11.9-15.9); WHITE BLOOD COUNT 7.2 K/mm3 (4.0-10.0)
[2021-09-18 08:00] LABS: ALBUMIN 2.8 g/dl (3.4-5.0); BLOOD UREA NITROGEN 24.3 mg/dL (7-18); CALCIUM 8.9 mg/dL (8.5-10.1)
[2021-09-18 08:05] LABS: BILIRUBIN,TOTAL 0.6 mg/dL (0.2-1); TOT PROT 6.2 g/dl (6.4-8.2)
[2021-09-18] MEDS ORDERED: PT OWN MED DRAWER 7, Y5N ONE (09:07)
[2021-09-18] MEDS ORDERED: ASPIRIN COATED 81 MG TABLET.EC PO SCH (10:00)
[2021-09-18] MEDS ORDERED: ENOXAPARIN NA (PORCINE) 40 MG/0.4 ML DISP.SYRIN SQ SCH (10:00)
[2021-09-18] MEDS ORDERED: LIDOCAINE 1%/EPI 1:100000 (20 ML MULTI DOSE VIAL) ONE (11:17)
[2021-09-18] MEDS ORDERED: THROMBIN (BOVINE) 20,000 UNIT VIAL TP ONE (11:17)
[2021-09-18] MEDS ORDERED: ONDANSETRON 4 MG/2 ML VIAL ONE (11:20)
[2021-09-18] MEDS ORDERED: ROCURONIUM BROMIDE 50 MG/5 ML SYRINGE ONE (11:20)
[2021-09-18] MEDS ORDERED: DEXAMETHASONE SOD PHOSPHATE 4 MG/1 ML VIAL ONE (11:20)
[2021-09-18] MEDS ORDERED: LIDOCAINE HCL/PF 2% SDV 5ML VIAL ONE (11:20)
[2021-09-18] MEDS ORDERED: PROPOFOL 20 ML ONE (11:20)
[2021-09-18] MEDS ORDERED: MIDAZOLAM HCL 2 MG/2 ML SINGLE DOSE VIAL ONE (11:21)
[2021-09-18] MEDS ORDERED: MORPHINE 5 MG/10 ML AMP - FOR COMPOUNDING USE ONLY ONE (11:36)
[2021-09-18] MEDS ORDERED: VANCOMYCIN 1,000 MG VIAL (RESTRICTED TO ID ONLY) IVPB ONE ×2 (12:00→14:25)
[2021-09-18] MEDS ORDERED: VANCOMYCIN 1,000 MG VIAL (RESTRICTED TO ID ONLY) ONE (12:21)
[2021-09-18] MEDS ORDERED: ceFAZolin SODIUM 1 GM VIAL ONE ×2 (12:21→18:14)
[2021-09-18] MEDS ORDERED: ceFAZolin SODIUM 1 GM VIAL IVPB ONE (12:28)
[2021-09-18] MEDS ORDERED: TRANEXAMIC ACID 1000 MG/10 ML VIAL ONE (12:42)
[2021-09-18] MEDS ORDERED: LIDOCAINE 1%/EPI 1:100000 (20 ML MULTI DOSE VIAL) IJ ONE (13:15)
[2021-09-18] MEDS ORDERED: THROMBIN (BOVINE) 5,000 UNIT VIAL TP ONE (13:30)
[2021-09-18] MEDS ORDERED: HYDROGEN PEROXIDE 473 ML PO ONE (14:24)
[2021-09-18] MEDS ORDERED: ONDANSETRON 4 MG/2 ML VIAL IVPUSH PRN ×2 (14:35→14:41)
[2021-09-18] MEDS ORDERED: oxyCODONE HCL 5 MG TABLET PO PRN ×2 (14:41)
[2021-09-18] MEDS ORDERED: NALOXONE HCL 0.4 MG/ML VIAL IVPUSH PRN (14:41)
[2021-09-18] MEDS: ACETAMINOPHEN 1000 MG/100 ML VIAL IVPB SCH ×2 (14:45→21:22)
[2021-09-18] MEDS ORDERED: SUGAMMADEX SODIUM 200 MG/2 ML VIAL ONE (14:55)
[2021-09-18] MEDS ORDERED: BUPIVACAINE LIPOSOME/PF (EXPAREL) 266 MG/20 ML VIAL NR ONE (15:02)
[2021-09-18] MEDS ORDERED: BUPIVACAINE HCL/PF 0.5% (5 MG/ML) 30 ML VIAL IJ ONE (15:04)
[2021-09-18 15:06] LABS: N-TERMINAL BNP 628.5 pg/ml (5-450)
[2021-09-18] MEDS ORDERED: diphenhydrAMINE HCL 25 MG CAPSULE (FP) PO PRN (15:52)
[2021-09-18] MEDS ORDERED: ACETAMINOPHEN INJECTION 100 ML IVPB ONE (17:00)
[2021-09-18] MEDS: amLODIPine BESYLATE 10 MG TABLET (FP) PO SCH (17:34)
[2021-09-18] MEDS: TAMSULOSIN HCL 0.4 MG CAP PO SCH (17:34)
[2021-09-18] MEDS: GABAPENTIN 100 MG CAPSULE PO SCH (17:34)
[2021-09-18] MEDS ORDERED: DEXTROSE 5%-WATER - 50 ML IVPB ONE (18:14)
[2021-09-18] MEDS: LACTATED RINGERS SOLUTION 1,000 ML/1,000 ML INFUS.BAG IV SCH (18:19)
[2021-09-18] MEDS: CEFAZOLIN 1 GM in DEXTROSE 5%-WATER - 50 ML IVPB SCH (18:20)
[2021-09-18] MEDS: DOCUSATE SODIUM 100 MG CAPSULE (FP) PO SCH (21:24)
[2021-09-18] MEDS: ATORVASTATIN CA 40 MG TABLET (FP) PO SCH (21:24)
[2021-09-19] MEDS ORDERED: ceFAZolin SODIUM 1 GM VIAL ONE ×2 (01:42→09:41)
[2021-09-19] MEDS ORDERED: DEXTROSE 5%-WATER - 50 ML IVPB ONE ×2 (01:42→09:41)
[2021-09-19] MEDS: LACTATED RINGERS SOLUTION 1,000 ML/1,000 ML INFUS.BAG IV SCH ×2 (01:44→21:04)
[2021-09-19] MEDS: CEFAZOLIN 1 GM in DEXTROSE 5%-WATER - 50 ML IVPB SCH ×2 (01:44→09:43)
[2021-09-19] MEDS: ACETAMINOPHEN 1000 MG/100 ML VIAL IVPB SCH ×2 (04:18→09:38)
[2021-09-19] MEDS: DOCUSATE SODIUM 100 MG CAPSULE (FP) PO SCH ×3 (05:33→21:04)
[2021-09-19] MEDS: hydrALAZINE HCL 50 MG TABLET (FP) PO SCH ×3 (05:33→21:04)
[2021-09-19 08:20] LABS: HEMATOCRIT 31.5 % (35.4-49); HEMOGLOBIN 10.8 GM/dL (11.7-16.9); MCH 30.8 pg (25.7-33.7); MCHC 34.3 g/dl (32.0-35.9); MEAN CELL VOLUME 89.9 fl (80-96); MEAN PLT VOLUME 7.9 fl (7.5-11.1); PLATELET COUNT 295 10^3/uL (134-434); RDW 15.7 % (11.9-15.9); WHITE BLOOD COUNT 12.4 K/mm3 (4.0-10.0)
[2021-09-19 08:40] LABS: CALCIUM 8.4 mg/dL (8.5-10.1)
[2021-09-19 08:41] LABS: BLOOD UREA NITROGEN 29.2 mg/dL (7-18)
[2021-09-19 08:44] LABS: CREATININE 1.3 mg/dL (0.55-1.3)
[2021-09-19] MEDS ORDERED: oxyCODONE HCL 5 MG TABLET PO PRN ×2 (09:00)
[2021-09-19] MEDS: TAMSULOSIN HCL 0.4 MG CAP PO SCH (09:38)
[2021-09-19] MEDS: GABAPENTIN 100 MG CAPSULE PO SCH (09:38)
[2021-09-19] MEDS: amLODIPine BESYLATE 10 MG TABLET (FP) PO SCH (09:38)
[2021-09-19] MEDS: FOLIC ACID 1 MG TABLET (FP) PO SCH (09:38)
[2021-09-19] MEDS ORDERED: DOCUSATE SODIUM 100 MG CAPSULE (FP) PO SCH (10:00)
[2021-09-19] MEDS ORDERED: morphine SULFATE 4 MG/ML VIAL IVPUSH PRN (14:41)
[2021-09-19] MEDS ORDERED: oxyCODONE HCL 10 MG SUSTAINED ACTING TABLET PO SCH (14:41)
[2021-09-19] MEDS: oxyCODONE HCL 5 MG TABLET PO PRN (20:49)
[2021-09-19] MEDS: ATORVASTATIN CA 40 MG TABLET (FP) PO SCH (21:04)
[2021-09-19] MEDS: HEPARIN NA (PORCINE) 5,000 UNITS/ML 1ML VIAL SQ SCH (21:05)
[2021-09-20] MEDS: oxyCODONE HCL 5 MG TABLET PO PRN ×3 (03:34→23:58)
[2021-09-20] MEDS: LACTATED RINGERS SOLUTION 1,000 ML/1,000 ML INFUS.BAG IV SCH ×3 (05:48→16:12)
[2021-09-20] MEDS: HEPARIN NA (PORCINE) 5,000 UNITS/ML 1ML VIAL SQ SCH ×3 (06:54→21:04)
[2021-09-20] MEDS: DOCUSATE SODIUM 100 MG CAPSULE (FP) PO SCH ×3 (06:56→21:04)
[2021-09-20] MEDS: hydrALAZINE HCL 50 MG TABLET (FP) PO SCH ×3 (06:56→21:04)
[2021-09-20 07:12] LABS: BASO % 0.3 % (0-2.0); EOS % 0.1 % (0-4.5); HEMOGLOBIN 9.9 GM/dL (11.7-16.9); LYMPH % 8.8 % (8-40); MCH 29.5 pg (25.7-33.7); MEAN CELL VOLUME 89.4 fl (80-96); MEAN PLT VOLUME 7.6 fl (7.5-11.1); MONO % 11.7 % (3.8-10.2); NEUT % 79.1 % (42.8-82.8); PLATELET COUNT 227 10^3/uL (134-434); RBC 3.36 M/mm3 (4.00-5.60); RDW 15.7 % (11.9-15.9); WHITE BLOOD COUNT 13.2 K/mm3 (4.0-10.0)
[2021-09-20 07:19] LABS: BLOOD UREA NITROGEN 26.4 mg/dL (7-18)
[2021-09-20 07:22] LABS: CREATININE 1.2 mg/dL (0.55-1.3)
[2021-09-20 07:23] LABS: BILIRUBIN,TOTAL 0.6 mg/dL (0.2-1)
[2021-09-20] MEDS: TAMSULOSIN HCL 0.4 MG CAP PO SCH (11:16)
[2021-09-20] MEDS: GABAPENTIN 100 MG CAPSULE PO SCH (11:17)
[2021-09-20] MEDS: FOLIC ACID 1 MG TABLET (FP) PO SCH (11:17)
[2021-09-20] MEDS: amLODIPine BESYLATE 10 MG TABLET (FP) PO SCH (11:17)
[2021-09-20] MEDS ORDERED: DEXTROSE 5%-WATER - 50 ML IVPB ONE (17:07)
[2021-09-20] MEDS ORDERED: AZTREONAM 1 GM VIAL (RESTRICTED TO ID) ONE (17:07)
[2021-09-20] MEDS: AZTREONAM 1 GM in DEXTROSE 5%-WATER - 50 ML IVPB SCH (17:09)
[2021-09-20] MEDS: ATORVASTATIN CA 40 MG TABLET (FP) PO SCH (21:04)
[2021-09-21] MEDS ORDERED: PT OWN MED DRAWER 7, Y5N ONE ×3 (00:37→18:18)
[2021-09-21] MEDS ORDERED: DEXTROSE 5%-WATER - 50 ML IVPB ONE ×2 (01:01→08:24)
[2021-09-21] MEDS ORDERED: AZTREONAM 1 GM VIAL (RESTRICTED TO ID) ONE ×2 (01:01→08:23)
[2021-09-21] MEDS: AZTREONAM 1 GM in DEXTROSE 5%-WATER - 50 ML IVPB SCH ×2 (01:05→10:38)
[2021-09-21] MEDS ORDERED: ACETAMINOPHEN 325 MG TABLET (FP) ONE (02:13)
[2021-09-21] MEDS ORDERED: ACETAMINOPHEN 325 MG TABLET (FP) PO ONE (02:30)
[2021-09-21] MEDS: oxyCODONE HCL 5 MG TABLET PO PRN ×4 (03:59→21:50)
[2021-09-21] MEDS: DOCUSATE SODIUM 100 MG CAPSULE (FP) PO SCH ×3 (05:31→21:45)
[2021-09-21] MEDS: hydrALAZINE HCL 50 MG TABLET (FP) PO SCH ×3 (05:31→21:45)
[2021-09-21] MEDS: HEPARIN NA (PORCINE) 5,000 UNITS/ML 1ML VIAL SQ SCH ×3 (05:32→21:45)
[2021-09-21] MEDS: TAMSULOSIN HCL 0.4 MG CAP PO SCH (08:53)
[2021-09-21] MEDS: amLODIPine BESYLATE 10 MG TABLET (FP) PO SCH (09:04)
[2021-09-21] MEDS: ACETAMINOPHEN 325 MG TABLET (FP) PO PRN (09:04)
[2021-09-21] MEDS: FOLIC ACID 1 MG TABLET (FP) PO SCH (09:08)
[2021-09-21] MEDS: GABAPENTIN 100 MG CAPSULE PO SCH (09:09)
[2021-09-21] MEDS: NITROFURANTOIN MACROCRYSTAL 50 MG CAPSULE (FP) PO SCH ×2 (18:36→23:20)
[2021-09-21] MEDS: ATORVASTATIN CA 40 MG TABLET (FP) PO SCH (21:49)
[2021-09-22] MEDS: hydrALAZINE HCL 50 MG TABLET (FP) PO SCH ×3 (05:54→21:14)
[2021-09-22] MEDS: DOCUSATE SODIUM 100 MG CAPSULE (FP) PO SCH ×3 (05:54→21:15)
[2021-09-22] MEDS: HEPARIN NA (PORCINE) 5,000 UNITS/ML 1ML VIAL SQ SCH ×3 (05:54→21:14)
[2021-09-22] MEDS: NITROFURANTOIN MACROCRYSTAL 50 MG CAPSULE (FP) PO SCH ×3 (05:55→17:14)
[2021-09-22] MEDS: oxyCODONE HCL 5 MG TABLET PO PRN ×2 (05:56→21:14)
[2021-09-22 07:29] LABS: BASO % 0.2 % (0-2.0); EOS % 1.6 % (0-4.5); HEMATOCRIT 29.5 % (35.4-49); HEMOGLOBIN 10.2 GM/dL (11.7-16.9); LYMPH % 10.8 % (8-40); MCH 30.9 pg (25.7-33.7); MCHC 34.5 g/dl (32.0-35.9); MEAN CELL VOLUME 89.5 fl (80-96); MEAN PLT VOLUME 8.4 fl (7.5-11.1); MONO % 11.4 % (3.8-10.2); PLATELET COUNT 235 10^3/uL (134-434); RDW 15.3 % (11.9-15.9)
[2021-09-22 07:45] LABS: ALBUMIN 1.7 g/dl (3.4-5.0); BLOOD UREA NITROGEN 30.8 mg/dL (7-18); CALCIUM 7.9 mg/dL (8.5-10.1)
[2021-09-22 07:47] LABS: CREATININE 1.2 mg/dL (0.55-1.3)
[2021-09-22 07:49] LABS: BILIRUBIN,TOTAL 0.5 mg/dL (0.2-1); TOT PROT 5.4 g/dl (6.4-8.2)
[2021-09-22] MEDS: FOLIC ACID 1 MG TABLET (FP) PO SCH (09:30)
[2021-09-22] MEDS: POLYETHYLENE GLYCOL (HEALTHYLAX) 3350 17 GM PACKET PO SCH (09:30)
[2021-09-22] MEDS: amLODIPine BESYLATE 10 MG TABLET (FP) PO SCH (09:30)
[2021-09-22] MEDS: GABAPENTIN 100 MG CAPSULE PO SCH (09:30)
[2021-09-22] MEDS: TAMSULOSIN HCL 0.4 MG CAP PO SCH (09:30)
[2021-09-22] MEDS ORDERED: PT OWN MED DRAWER 7, Y5N ONE (11:07)
[2021-09-22] MEDS: ACETAMINOPHEN 325 MG TABLET (FP) PO PRN (15:03)
[2021-09-22] MEDS: ATORVASTATIN CA 40 MG TABLET (FP) PO SCH (21:14)
[2021-09-23] MEDS ORDERED: PT OWN MED DRAWER 7, Y5N ONE ×4 (00:11→22:47)
[2021-09-23] MEDS: NITROFURANTOIN MACROCRYSTAL 50 MG CAPSULE (FP) PO SCH ×4 (00:55→17:02)
[2021-09-23] MEDS: DOCUSATE SODIUM 100 MG CAPSULE (FP) PO SCH ×3 (05:28→21:11)
[2021-09-23] MEDS: oxyCODONE HCL 5 MG TABLET PO PRN (05:28)
[2021-09-23] MEDS: hydrALAZINE HCL 50 MG TABLET (FP) PO SCH ×3 (05:28→21:11)
[2021-09-23] MEDS: HEPARIN NA (PORCINE) 5,000 UNITS/ML 1ML VIAL SQ SCH ×3 (05:29→21:10)
[2021-09-23] MEDS: GABAPENTIN 100 MG CAPSULE PO SCH (09:05)
[2021-09-23] MEDS: TAMSULOSIN HCL 0.4 MG CAP PO SCH (09:05)
[2021-09-23] MEDS: amLODIPine BESYLATE 10 MG TABLET (FP) PO SCH (09:05)
[2021-09-23] MEDS: FOLIC ACID 1 MG TABLET (FP) PO SCH (09:05)
[2021-09-23] MEDS: POLYETHYLENE GLYCOL (HEALTHYLAX) 3350 17 GM PACKET PO SCH (09:05)
[2021-09-23] MEDS: ACETAMINOPHEN 500 MG TABLET (FP) PO SCH ×3 (10:41→22:48)
[2021-09-23] MEDS: LIDOCAINE 5% TOPICAL PATCH TP SCH (10:41)
[2021-09-23] MEDS: traMADol HCL 50 MG TABLET PO PRN (21:10)
[2021-09-23] MEDS: LIDOCAINE PATCH REMOVAL MC SCH (21:11)
[2021-09-23] MEDS: ATORVASTATIN CA 40 MG TABLET (FP) PO SCH (21:11)
[2021-09-24] MEDS: NITROFURANTOIN MACROCRYSTAL 50 MG CAPSULE (FP) PO SCH ×5 (00:13→23:31)
[2021-09-24] MEDS ORDERED: PT OWN MED DRAWER 7, Y5N ONE ×4 (04:42→23:26)
[2021-09-24] MEDS: ACETAMINOPHEN 500 MG TABLET (FP) PO SCH ×4 (05:39→23:31)
[2021-09-24] MEDS: DOCUSATE SODIUM 100 MG CAPSULE (FP) PO SCH ×3 (05:40→21:22)
[2021-09-24] MEDS: hydrALAZINE HCL 50 MG TABLET (FP) PO SCH ×3 (05:40→21:22)
[2021-09-24] MEDS: HEPARIN NA (PORCINE) 5,000 UNITS/ML 1ML VIAL SQ SCH ×3 (05:41→21:23)
[2021-09-24] MEDS: traMADol HCL 50 MG TABLET PO PRN ×2 (08:49→21:22)
[2021-09-24] MEDS: TAMSULOSIN HCL 0.4 MG CAP PO SCH (08:49)
[2021-09-24] MEDS: LIDOCAINE 5% TOPICAL PATCH TP SCH (09:23)
[2021-09-24] MEDS: FOLIC ACID 1 MG TABLET (FP) PO SCH (09:23)
[2021-09-24] MEDS: amLODIPine BESYLATE 10 MG TABLET (FP) PO SCH (09:23)
[2021-09-24] MEDS: POLYETHYLENE GLYCOL (HEALTHYLAX) 3350 17 GM PACKET PO SCH (09:23)
[2021-09-24] MEDS: GABAPENTIN 100 MG CAPSULE PO SCH (09:23)
[2021-09-24] MEDS: ATORVASTATIN CA 40 MG TABLET (FP) PO SCH (21:22)
[2021-09-24] MEDS: LIDOCAINE PATCH REMOVAL MC SCH (21:22)
[2021-09-25] MEDS: traMADol HCL 50 MG TABLET PO PRN ×2 (03:27→20:56)
[2021-09-25] MEDS ORDERED: PT OWN MED DRAWER 7, Y5N ONE ×2 (05:03→17:33)
[2021-09-25] MEDS: ACETAMINOPHEN 500 MG TABLET (FP) PO SCH ×3 (05:11→16:22)
[2021-09-25] MEDS: hydrALAZINE HCL 50 MG TABLET (FP) PO SCH ×3 (05:11→21:08)
[2021-09-25] MEDS: NITROFURANTOIN MACROCRYSTAL 50 MG CAPSULE (FP) PO SCH ×3 (05:11→18:31)
[2021-09-25] MEDS: DOCUSATE SODIUM 100 MG CAPSULE (FP) PO SCH ×2 (05:11→15:10)
[2021-09-25] MEDS: HEPARIN NA (PORCINE) 5,000 UNITS/ML 1ML VIAL SQ SCH ×3 (05:11→21:07)
[2021-09-25] MEDS: TAMSULOSIN HCL 0.4 MG CAP PO SCH (10:03)
[2021-09-25] MEDS: MULTIVITAMINS THER W-MINERALS COMBO TABLET (FP) PO SCH (10:04)
[2021-09-25] MEDS: FOLIC ACID 1 MG TABLET (FP) PO SCH (10:04)
[2021-09-25] MEDS: GABAPENTIN 100 MG CAPSULE PO SCH (10:04)
[2021-09-25] MEDS: POLYETHYLENE GLYCOL (HEALTHYLAX) 3350 17 GM PACKET PO SCH (10:05)
[2021-09-25] MEDS: LIDOCAINE 5% TOPICAL PATCH TP SCH (10:05)
[2021-09-25] MEDS: amLODIPine BESYLATE 10 MG TABLET (FP) PO SCH (10:05)
[2021-09-25] MEDS: LIDOCAINE PATCH REMOVAL MC SCH (21:08)
[2021-09-25] MEDS: ATORVASTATIN CA 40 MG TABLET (FP) PO SCH (21:08)
[2021-09-26] MEDS: NITROFURANTOIN MACROCRYSTAL 50 MG CAPSULE (FP) PO SCH ×5 (05:58→23:30)
[2021-09-26] MEDS: DOCUSATE SODIUM 100 MG CAPSULE (FP) PO SCH ×4 (05:59→21:19)
[2021-09-26] MEDS: HEPARIN NA (PORCINE) 5,000 UNITS/ML 1ML VIAL SQ SCH ×3 (06:00→21:19)
[2021-09-26] MEDS: hydrALAZINE HCL 50 MG TABLET (FP) PO SCH ×3 (06:00→21:19)
[2021-09-26] MEDS: LIDOCAINE 5% TOPICAL PATCH TP SCH (09:35)
[2021-09-26] MEDS: GABAPENTIN 100 MG CAPSULE PO SCH (09:35)
[2021-09-26] MEDS: TAMSULOSIN HCL 0.4 MG CAP PO SCH (09:35)
[2021-09-26] MEDS: FOLIC ACID 1 MG TABLET (FP) PO SCH (09:35)
[2021-09-26] MEDS: amLODIPine BESYLATE 10 MG TABLET (FP) PO SCH (09:35)
[2021-09-26] MEDS: POLYETHYLENE GLYCOL (HEALTHYLAX) 3350 17 GM PACKET PO SCH (09:35)
[2021-09-26] MEDS: MULTIVITAMINS THER W-MINERALS COMBO TABLET (FP) PO SCH (09:35)
[2021-09-26] MEDS ORDERED: ALBUTEROL SO4 HFA INHALER IH PRN (17:48)
[2021-09-26] MEDS ORDERED: ACETAMINOPHEN 325 MG TABLET (FP) PO ONE (18:45)
[2021-09-26] MEDS ORDERED: ACETAMINOPHEN 325 MG TABLET (FP) PO PRN (21:05)
[2021-09-26] MEDS: ATORVASTATIN CA 40 MG TABLET (FP) PO SCH (21:19)
[2021-09-26] MEDS: LIDOCAINE PATCH REMOVAL MC SCH (21:19)
[2021-09-26] MEDS: diphenhydrAMINE HCL 25 MG CAPSULE (FP) PO PRN (21:20)
[2021-09-27] MEDS: HEPARIN NA (PORCINE) 5,000 UNITS/ML 1ML VIAL SQ SCH ×3 (05:20→21:26)
[2021-09-27] MEDS: NITROFURANTOIN MACROCRYSTAL 50 MG CAPSULE (FP) PO SCH ×3 (05:21→17:24)
[2021-09-27] MEDS: DOCUSATE SODIUM 100 MG CAPSULE (FP) PO SCH ×3 (05:21→21:26)
[2021-09-27] MEDS: hydrALAZINE HCL 50 MG TABLET (FP) PO SCH ×3 (05:21→21:26)
[2021-09-27] MEDS: FOLIC ACID 1 MG TABLET (FP) PO SCH (10:18)
[2021-09-27] MEDS: GABAPENTIN 100 MG CAPSULE PO SCH (10:18)
[2021-09-27] MEDS: POLYETHYLENE GLYCOL (HEALTHYLAX) 3350 17 GM PACKET PO SCH (10:19)
[2021-09-27] MEDS: LIDOCAINE 5% TOPICAL PATCH TP SCH (10:19)
[2021-09-27] MEDS: amLODIPine BESYLATE 10 MG TABLET (FP) PO SCH (10:19)
[2021-09-27] MEDS: TAMSULOSIN HCL 0.4 MG CAP PO SCH (10:19)
[2021-09-27] MEDS: MULTIVITAMINS THER W-MINERALS COMBO TABLET (FP) PO SCH (10:19)
[2021-09-27] MEDS: LIDOCAINE PATCH REMOVAL MC SCH (21:26)
[2021-09-27] MEDS: ATORVASTATIN CA 40 MG TABLET (FP) PO SCH (21:27)
[2021-09-27] MEDS: diphenhydrAMINE HCL 25 MG CAPSULE (FP) PO PRN (21:27)
[2021-09-28] MEDS: NITROFURANTOIN MACROCRYSTAL 50 MG CAPSULE (FP) PO SCH ×3 (01:33→11:38)
[2021-09-28 05:29] VITALS: BP 161/87; PULSE 78; TEMP 98.4
[2021-09-28] MEDS: hydrALAZINE HCL 50 MG TABLET (FP) PO SCH ×2 (05:50→15:02)
[2021-09-28] MEDS: DOCUSATE SODIUM 100 MG CAPSULE (FP) PO SCH ×2 (05:50→15:03)
[2021-09-28] MEDS: HEPARIN NA (PORCINE) 5,000 UNITS/ML 1ML VIAL SQ SCH ×2 (05:50→15:02)
[2021-09-28] MEDS: TAMSULOSIN HCL 0.4 MG CAP PO SCH (08:09)
[2021-09-28] MEDS: amLODIPine BESYLATE 10 MG TABLET (FP) PO SCH (10:09)
[2021-09-28] MEDS: MULTIVITAMINS THER W-MINERALS COMBO TABLET (FP) PO SCH (10:09)
[2021-09-28] MEDS: GABAPENTIN 100 MG CAPSULE PO SCH (10:09)
[2021-09-28] MEDS: LIDOCAINE 5% TOPICAL PATCH TP SCH (10:10)
[2021-09-28] MEDS: FOLIC ACID 1 MG TABLET (FP) PO SCH (10:10)
[2021-09-28] MEDS: POLYETHYLENE GLYCOL (HEALTHYLAX) 3350 17 GM PACKET PO SCH (10:10)
== END 2021-09-28 17:45 | DRG 459 ==
LOC: JER 13:42 → JERBED 15:10 → J7W 20:29 → J4W 09-18 15:34 → J8W 09-26 16:43
PROVIDERS: ADMIT Internal Medicine; ATTEND Internal Medicine
PROC: 00NX0ZZ Release Thoracic Spinal Cord, Open Approach (ICD-10-PCS; 2021-09-18)
PROC: 0RB90ZZ Excision of Thoracic Vertebral Disc, Open Approach (ICD-10-PCS; 2021-09-18)
PROC: 4A11X4G Monitoring of Peripheral Nervous Electrical Activity, Intraoperative, External Approach (ICD-10-PCS; 2021-09-18)
PROC: 0RG6071 Fusion of Thoracic Vertebral Joint with Autologous Tissue Substitute, Posterior Approach, Posterior Column, Open Approach (ICD-10-PCS; principal; 2021-09-18 12:00)
DX: M47.24 Other spondylosis with radiculopathy, thoracic region (principal); G95.19 Other vascular myelopathies; G95.20 Unspecified cord compression; N39.0 Urinary tract infection, site not specified; M47.14 Other spondylosis with myelopathy, thoracic region; G95.89 Other specified diseases of spinal cord; M48.04 Spinal stenosis, thoracic region; M51.24 Other intervertebral disc displacement, thoracic region; M47.894 Other spondylosis, thoracic region; N40.0 Benign prostatic hyperplasia without lower urinary tract symptoms; I10 Essential (primary) hypertension; F03.90 Unspecified dementia, unspecified severity, without behavioral disturbance, psychotic disturbance, mood disturbance, and anxiety; M10.9 Gout, unspecified; M25.562 Pain in left knee; R33.8 Other retention of urine; B96.1 Klebsiella pneumoniae [K. pneumoniae] as the cause of diseases classified elsewhere; C61 Malignant neoplasm of prostate
CPT/HCPCS: 36415; 72128-TC; 72146-TC; 73560-TC-LT-FY; 73560-TC-RT-FY; 73700-TC-RT; 76000-TC-FY; 80048; 80053; 80061; 82550; 82962; 83036; 83880; 84484; 85025; 85027; 85610; 85730; 86850; 86900; 86901; 87086; 87186; 93005; 93010; 93306-TC; 94010; 94760; 97116-GP; 97162-GP; 99285-25; C9803; J0131; J1644; U0003; U0005

== ENCOUNTER 2021-12-12 04:27 | Day surgery (SDC) | payer OTHER ==
[2021-12-11 09:32] VITALS: BMI 28.8
[2021-12-12] MEDS ORDERED: DEXAMETHASONE SOD PHOSPHATE 10 MG/1 ML VIAL IVPUSH ONE ×2 (10:15)
[2021-12-12] MEDS ORDERED: LIDOCAINE HCL 1% PRESERVATIVE FREE - 30ML VIAL IJ ONE ×2 (10:15)
[2021-12-12] MEDS ORDERED: IOHEXOL 180 MG/1 ML ML IJ ONE (10:15)
[2021-12-12 13:03] VITALS: BP 149/70; PULSE 69; TEMP 98.8
== END 2021-12-12 11:15 | disposition home or self-care (01) ==
LOC: JASU-SURG 04:27
PROVIDERS: ATTEND Pain Medicine Pain Medicine
PROC: 3E0R33Z Introduction of Anti-inflammatory into Spinal Canal, Percutaneous Approach (ICD-10-PCS; 2021-12-12)
PROC: B01BYZZ Fluoroscopy of Spinal Cord using Other Contrast (ICD-10-PCS; 2021-12-12)
PROC: 3E0R3BZ Introduction of Anesthetic Agent into Spinal Canal, Percutaneous Approach (ICD-10-PCS; principal; 2021-12-12 11:30)
DX: M54.16 Radiculopathy, lumbar region (principal); M48.061 Spinal stenosis, lumbar region without neurogenic claudication; I10 Essential (primary) hypertension; R73.03 Prediabetes
CPT/HCPCS: 76000-TC-FY; J1100

== ENCOUNTER 2023-07-27 08:24 | Day surgery (SDC) | payer OTHER ==
[2023-07-26 09:27] VITALS: BMI 25.8
[2023-07-27] MEDS ORDERED: TRANEXAMIC ACID 1000 MG/10 ML VIAL IVPUSH ONE (08:45)
[2023-07-27] MEDS ORDERED: CEFAZOLIN 2 GM in DEXTROSE 5%-WATER - 50 ML IVPB ONE (09:00)
[2023-07-27 09:33] VITALS: BP 159/94; PULSE 92; RESP 16; TEMP 98.1
[2023-07-27] MEDS ORDERED: PROPOFOL 20 ML ONE (09:46)
[2023-07-27] MEDS ORDERED: MIDAZOLAM HCL 2 MG/2 ML SINGLE DOSE VIAL ONE (09:47)
[2023-07-27] MEDS ORDERED: DOCUSATE SODIUM 100 MG CAPSULE (FP) PO PRN (10:10)
[2023-07-27] MEDS ORDERED: ONDANSETRON 4 MG/2 ML VIAL IVPUSH PRN (10:11)
[2023-07-27] MEDS ORDERED: VANCOMYCIN 1,000 MG VIAL (RESTRICTED TO ID ONLY) ONE (10:13)
[2023-07-27] MEDS ORDERED: ceFAZolin SODIUM 1 GM VIAL ONE (10:13)
[2023-07-27] MEDS ORDERED: LACTATED RINGERS SOLUTION 1,000 ML IV SCH (10:15)
[2023-07-27] MEDS ORDERED: BUPIVACAINE LIPOSOME/PF (EXPAREL) 266 MG/20 ML VIAL ONE (10:37)
[2023-07-27] MEDS ORDERED: ACETAMINOPHEN INJECTION 100 ML IVPB ONE (10:37)
[2023-07-27] MEDS ORDERED: BUPIVACAINE HCL/PF 0.5% (5MG/ML) 10 ML VIAL ONE (10:37)
[2023-07-27] MEDS ORDERED: CEFAZOLIN 2 GM in DEXTROSE 5%-WATER 100 ML IVPB SCH (19:00)
[2023-07-27] MEDS ORDERED: ATORVASTATIN CA 40 MG TABLET (FP) PO SCH (22:00)
[2023-07-28] MEDS ORDERED: ASPIRIN 325 MG TABLET PO SCH (08:00)
[2023-07-28] MEDS ORDERED: MULTIVITAMINS (DAILY MVI) TABLET (FP) PO SCH (10:00)
[2023-07-28] MEDS ORDERED: PANTOPRAZOLE 20 MG TABLET PO SCH (10:00)
[2023-07-28] MEDS ORDERED: hydrALAZINE HCL 50 MG TABLET (FP) PO SCH (10:00)
[2023-07-28] MEDS ORDERED: PATIENT'S OWN MEDICATION (NON-FORMULARY) (Mirabegron [Myrbetriq] 25 MG Tab.Er.24h) PO SCH (10:00)
== END 2023-07-27 11:30 | disposition home or self-care (01) ==
LOC: FASUSAT 08:24
PROVIDERS: ATTEND Orthopaedic Surgery
PROC: 0SRC0JZ Replacement of Right Knee Joint with Synthetic Substitute, Open Approach (ICD-10-PCS; principal; 2023-07-27)
DX: Z53.09 Procedure and treatment not carried out because of other contraindication (principal); M17.11 Unilateral primary osteoarthritis, right knee
CPT/HCPCS: 73560-TC-RT-FY

== ENCOUNTER 2023-08-01 21:35 | Inpatient (IN) | payer OTHER ==
[2023-08-01 23:26] LABS: BASO % 0.3 % (0-2.0); EOS % 0.6 % (0-4.5); HEMATOCRIT 34.5 % (35.4-49); HEMOGLOBIN 11.8 GM/dL (11.7-16.9); LYMPH % 11.3 % (8-40); MCH 28.7 pg (25.7-33.7); MCHC 34.2 g/dl (32.0-35.9); MEAN CELL VOLUME 83.9 fl (80-96); MEAN PLT VOLUME 6.8 fl (7.5-11.1); MONO % 10.8 % (3.8-10.2); PLATELET COUNT 592 10^3/uL (134-434); RBC 4.11 M/mm3 (4.00-5.60); RDW 15.1 % (11.9-15.9); WHITE BLOOD COUNT 13.4 K/mm3 (4.0-10.0)
[2023-08-01 23:33] LABS: INR 1.15 (0.83-1.09); PROTHROMBIN TIME (PATIENT) 13.3 SEC (9.7-13.0)
[2023-08-01 23:36] LABS: ACTIVATED PTT 32.4 SECONDS (25.2-36.5)
[2023-08-02] LABS: POTASSIUM 3.9 mmol/L (3.5-5.1)
[2023-08-02 00:02] LABS: CALCIUM 8.4 mg/dL (8.5-10.1)
[2023-08-02 00:03] LABS: ALBUMIN 2.2 g/dl (3.4-5.0)
[2023-08-02 00:06] LABS: CREATININE 1.4 mg/dL (0.55-1.3)
[2023-08-02 00:08] LABS: BILIRUBIN,TOTAL 0.5 mg/dL (0.2-1); TOT PROT 7.2 g/dl (6.4-8.2)
[2023-08-02] MEDS ORDERED: morphine CARPU-JECT 2 MG/1 ML DISP.SYRIN IVPUSH STA (01:15)
[2023-08-02] MEDS ORDERED: morphine SULFATE 4 MG/ML VIAL IVPUSH ONE (06:08)
[2023-08-02] MEDS ORDERED: morphine SULFATE 4 MG/ML VIAL ONE (06:09)
[2023-08-02] MEDS ORDERED: DOCUSATE SODIUM 100 MG CAPSULE (FP) PO PRN (11:08)
[2023-08-02] MEDS: hydrALAZINE HCL 50 MG TABLET (FP) PO SCH (12:35)
[2023-08-02] MEDS ORDERED: hydrALAZINE HCL 50 MG TABLET (FP) ONE (12:36)
[2023-08-02] MEDS ORDERED: ACETAMINOPHEN 1000 MG/100 ML BAG IVPB PRN (12:52)
[2023-08-02] MEDS ORDERED: ACETAMINOPHEN INJECTION 100 ML IVPB ONE (14:14)
[2023-08-02 15:13] LABS: PH,URINE 5.5 (5.0-8.0); URINE APPEARANCE TURBID; URINE BILIRUBIN MODERATE (NEGATIVE); URINE COLOR DK YELLOW; URINE GLUCOSE (UA) 500 mg/dl (NEGATIVE); URINE KETONE TRACE (NEGATIVE); URINE NITRITE POSITIVE (NEGATIVE); URINE PROTEIN 4+ (NEGATIVE)
[2023-08-02 15:14] LABS: EPI CELLS 20.9 /uL (0-25.1); HYALINE CASTS 4.51 /uL (0-3.1); URINE BACTERIA 731.1 /uL (0-1359); URINE LEUK ESTERASE TRACE (NEGATIVE); URINE WBC 680.1 /uL (0-25.8)
[2023-08-02] MEDS ORDERED: SODIUM CHLORIDE 1,000 ML IV SCH (15:45)
[2023-08-02] MEDS: AZTREONAM 1 GM in DEXTROSE 5%-WATER - 50 ML IVPB SCH (18:01)
[2023-08-02 22:52] VITALS: BMI 25.8
[2023-08-03] MEDS: AZTREONAM 1 GM in DEXTROSE 5%-WATER - 50 ML IVPB SCH ×3 (01:46→17:56)
[2023-08-03 07:57] LABS: BASO % 0.3 % (0-2.0); EOS % 1.2 % (0-4.5); HEMATOCRIT 31.7 % (35.4-49); HEMOGLOBIN 10.2 GM/dL (11.7-16.9); LYMPH % 10.3 % (8-40); MCH 27.6 pg (25.7-33.7); MCHC 32.1 g/dl (32.0-35.9); MEAN CELL VOLUME 85.9 fl (80-96); MONO % 9.4 % (3.8-10.2); NEUT % 78.8 % (42.8-82.8); PLATELET COUNT 520 10^3/uL (134-434); RBC 3.69 M/mm3 (4.00-5.60); WHITE BLOOD COUNT 11.9 K/mm3 (4.0-10.0)
[2023-08-03 08:14] LABS: POTASSIUM 3.9 mmol/L (3.5-5.1)
[2023-08-03 08:19] LABS: CALCIUM 8.3 mg/dL (8.5-10.1)
[2023-08-03 08:20] LABS: BLOOD UREA NITROGEN 32.2 mg/dL (7-18)
[2023-08-03 08:22] LABS: CREATININE 1.7 mg/dL (0.55-1.3)
[2023-08-03 08:24] LABS: BILIRUBIN,TOTAL 0.6 mg/dL (0.2-1); TOT PROT 5.9 g/dl (6.4-8.2)
[2023-08-03 08:26] LABS: ALBUMIN 1.7 g/dl (3.4-5.0)
[2023-08-03] MEDS ORDERED: PATIENT'S OWN MEDICATION (NON-FORMULARY) (Mirabegron [Myrbetriq] 25 MG Tab.Er.24h) PO SCH (10:00)
[2023-08-03] MEDS: ASPIRIN COATED 81 MG TABLET.EC PO SCH (10:38)
[2023-08-03] MEDS: ENOXAPARIN NA (PORCINE) 40 MG/0.4 ML DISP.SYRIN SQ SCH (10:38)
[2023-08-03] MEDS: hydrALAZINE HCL 50 MG TABLET (FP) PO SCH (10:40)
[2023-08-03] MEDS ORDERED: ACETAMINOPHEN 1000 MG/100 ML BAG IVPB PRN (16:49)
[2023-08-03] MEDS: ATORVASTATIN CA 40 MG TABLET (FP) PO SCH (21:58)
[2023-08-04] MEDS: AZTREONAM 1 GM in DEXTROSE 5%-WATER - 50 ML IVPB SCH ×3 (01:59→17:12)
[2023-08-04 08:19] LABS: INR 1.03 (0.83-1.09)
[2023-08-04 08:42] LABS: BASO % 0.4 % (0-2.0); EOS % 2.6 % (0-4.5); HEMATOCRIT 31.4 % (35.4-49); HEMOGLOBIN 10.1 GM/dL (11.7-16.9); LYMPH % 13.2 % (8-40); MCH 27.6 pg (25.7-33.7); MCHC 32.2 g/dl (32.0-35.9); MEAN CELL VOLUME 85.6 fl (80-96); MEAN PLT VOLUME 7.1 fl (7.5-11.1); MONO % 7.5 % (3.8-10.2); NEUT % 76.3 % (42.8-82.8); PLATELET COUNT 542 10^3/uL (134-434); RBC 3.67 M/mm3 (4.00-5.60); RDW 14.7 % (11.9-15.9); WHITE BLOOD COUNT 11.6 K/mm3 (4.0-10.0)
[2023-08-04] MEDS: hydrALAZINE HCL 50 MG TABLET (FP) PO SCH ×2 (08:59→22:05)
[2023-08-04] MEDS: ASPIRIN COATED 81 MG TABLET.EC PO SCH (09:00)
[2023-08-04] MEDS: ENOXAPARIN NA (PORCINE) 40 MG/0.4 ML DISP.SYRIN SQ SCH (09:00)
[2023-08-04 09:58] LABS: ALBUMIN 1.6 g/dl (3.4-5.0); BILIRUBIN,TOTAL 0.5 mg/dL (0.2-1); BLOOD UREA NITROGEN 34.8 mg/dL (7-18); CALCIUM 8.4 mg/dL (8.5-10.1); CREATININE 1.4 mg/dL (0.55-1.3); POTASSIUM 3.8 mmol/L (3.5-5.1)
[2023-08-04] MEDS ORDERED: PROMETHAZINE HCL 25 MG/1 ML VIAL IVPB PRN (11:37)
[2023-08-04] MEDS ORDERED: ONDANSETRON 4 MG/2 ML VIAL IVPUSH PRN (11:37)
[2023-08-04] MEDS ORDERED: oxyCODONE HCL 5 MG TABLET PO PRN (11:37)
[2023-08-04] MEDS ORDERED: THROMBIN (BOVINE) 5,000 UNIT VIAL TP ONE (11:53)
[2023-08-04] MEDS ORDERED: GENTAMICIN SO4 80 MG/2 ML VIAL ONE (11:55)
[2023-08-04] MEDS ORDERED: BUPIVACAINE HCL/PF 0.5% (5MG/ML) 10 ML VIAL ONE (11:56)
[2023-08-04] MEDS ORDERED: MIDAZOLAM HCL 2 MG/2 ML SINGLE DOSE VIAL ONE (12:27)
[2023-08-04] MEDS ORDERED: FENTANYL CITRATE/PF 50 MCG/ML VIAL ONE (12:27)
[2023-08-04] MEDS ORDERED: ROCURONIUM BROMIDE 50 MG/5 ML SYRINGE ONE ×2 (12:27→13:13)
[2023-08-04] MEDS ORDERED: HYDROmorphone HCl 2 MG/ML VIAL ONE (12:27)
[2023-08-04] MEDS ORDERED: PROPOFOL 20 ML ONE (12:27)
[2023-08-04] MEDS ORDERED: SUGAMMADEX SODIUM 200 MG/2 ML VIAL ONE (12:29)
[2023-08-04] MEDS ORDERED: TRANEXAMIC ACID 1000 MG/10 ML VIAL ONE (12:29)
[2023-08-04] MEDS ORDERED: VANCOMYCIN 1,000 MG VIAL (RESTRICTED TO ID ONLY) ONE (12:29)
[2023-08-04] MEDS ORDERED: DEXAMETHASONE SOD PHOSPHATE 4 MG/1 ML VIAL ONE (12:29)
[2023-08-04] MEDS ORDERED: LIDOCAINE HCL/PF 2% SDV 5ML VIAL ONE (12:29)
[2023-08-04] MEDS ORDERED: ONDANSETRON 4 MG/2 ML VIAL ONE (12:29)
[2023-08-04] MEDS ORDERED: ceFAZolin SODIUM 1 GM VIAL ONE (12:29)
[2023-08-04] MEDS ORDERED: BUPIVACAINE LIPOSOME/PF (EXPAREL) 266 MG/20 ML VIAL ONE (12:41)
[2023-08-04] MEDS ORDERED: ALBUMIN HUMAN 5% 250 ML IV SOLUTION IV ONE (12:45)
[2023-08-04] MEDS ORDERED: VANCOMYCIN 1,000 MG VIAL (RESTRICTED TO ID ONLY) IVPB ONE ×2 (13:07→13:11)
[2023-08-04] MEDS ORDERED: ceFAZolin SODIUM 1 GM VIAL IVPB ONE (13:07)
[2023-08-04] MEDS ORDERED: THROMBIN (BOVINE) 20,000 UNIT VIAL TP ONE (13:10)
[2023-08-04] MEDS ORDERED: LIDOCAINE 1%/EPI 1:100000 (50 ML MULTI DOSE VIAL) INF ONE (13:13)
[2023-08-04] MEDS ORDERED: BUPIVACAINE HCL/PF 0.25% (2.5MG/ML) 10 ML VIAL IJ ONE (13:14)
[2023-08-04] MEDS ORDERED: BUPIVACAINE LIPOSOME/PF (EXPAREL) 266 MG/20 ML VIAL IJ ONE (13:16)
[2023-08-04] MEDS ORDERED: LIDOCAINE HCL 2% JELLY 11 ML TP ONE (13:34)
[2023-08-04] MEDS ORDERED: ACETAMINOPHEN 1000 MG/100 ML BAG IVPB PRN (17:55)
[2023-08-04] MEDS: LACTATED RINGERS SOLUTION 1,000 ML IV SCH (18:05)
[2023-08-04] MEDS: ATORVASTATIN CA 40 MG TABLET (FP) PO SCH (22:05)
[2023-08-05] MEDS: AZTREONAM 1 GM in DEXTROSE 5%-WATER - 50 ML IVPB SCH ×3 (01:33→18:03)
[2023-08-05] MEDS ORDERED: hydrALAZINE HCL 50 MG TABLET (FP) PO SCH (10:00)
[2023-08-05] MEDS: ENOXAPARIN NA (PORCINE) 40 MG/0.4 ML DISP.SYRIN SQ SCH (11:16)
[2023-08-05] MEDS: ASPIRIN COATED 81 MG TABLET.EC PO SCH (11:17)
[2023-08-05] MEDS: hydrALAZINE HCL 50 MG TABLET (FP) PO SCH ×2 (11:17→22:43)
[2023-08-05] MEDS: LACTATED RINGERS SOLUTION 1,000 ML IV SCH (11:26)
[2023-08-05] MEDS: oxyCODONE HCL 5 MG TABLET PO PRN (19:13)
[2023-08-05] MEDS: ATORVASTATIN CA 40 MG TABLET (FP) PO SCH (22:43)
[2023-08-06] MEDS: AZTREONAM 1 GM in DEXTROSE 5%-WATER - 50 ML IVPB SCH ×3 (02:00→17:15)
[2023-08-06] MEDS: LACTATED RINGERS SOLUTION 1,000 ML IV SCH ×2 (02:18→16:07)
[2023-08-06] MEDS: oxyCODONE HCL 5 MG TABLET PO PRN ×2 (07:10→18:41)
[2023-08-06] MEDS: ASPIRIN COATED 81 MG TABLET.EC PO SCH (10:24)
[2023-08-06] MEDS: hydrALAZINE HCL 50 MG TABLET (FP) PO SCH ×2 (10:25→21:43)
[2023-08-06] MEDS: ENOXAPARIN NA (PORCINE) 40 MG/0.4 ML DISP.SYRIN SQ SCH (10:25)
[2023-08-06] MEDS: ATORVASTATIN CA 40 MG TABLET (FP) PO SCH (21:43)
[2023-08-07] MEDS: LACTATED RINGERS SOLUTION 1,000 ML IV SCH ×3 (00:48→19:04)
[2023-08-07] MEDS: AZTREONAM 1 GM in DEXTROSE 5%-WATER - 50 ML IVPB SCH ×3 (01:32→18:10)
[2023-08-07] MEDS: oxyCODONE HCL 5 MG TABLET PO PRN ×2 (10:05→21:32)
[2023-08-07] MEDS: hydrALAZINE HCL 50 MG TABLET (FP) PO SCH ×2 (10:06→21:32)
[2023-08-07] MEDS: ENOXAPARIN NA (PORCINE) 40 MG/0.4 ML DISP.SYRIN SQ SCH (10:06)
[2023-08-07] MEDS: ASPIRIN COATED 81 MG TABLET.EC PO SCH (10:08)
[2023-08-07] MEDS: ATORVASTATIN CA 40 MG TABLET (FP) PO SCH (21:32)
[2023-08-08] MEDS: AZTREONAM 1 GM in DEXTROSE 5%-WATER - 50 ML IVPB SCH ×3 (01:43→17:24)
[2023-08-08] MEDS: ENOXAPARIN NA (PORCINE) 40 MG/0.4 ML DISP.SYRIN SQ SCH (09:47)
[2023-08-08] MEDS: oxyCODONE HCL 5 MG TABLET PO PRN ×2 (09:47→18:11)
[2023-08-08] MEDS: ASPIRIN COATED 81 MG TABLET.EC PO SCH (09:49)
[2023-08-08] MEDS: hydrALAZINE HCL 50 MG TABLET (FP) PO SCH ×2 (09:49→22:35)
[2023-08-08] MEDS: amLODIPine BESYLATE 5 MG TABLET (FP) PO SCH (11:47)
[2023-08-08] MEDS: ATORVASTATIN CA 40 MG TABLET (FP) PO SCH (22:37)
[2023-08-09] MEDS: AZTREONAM 1 GM in DEXTROSE 5%-WATER - 50 ML IVPB SCH ×4 (02:15→20:01)
[2023-08-09] MEDS ORDERED: VANCOMYCIN 1,000 MG VIAL (RESTRICTED TO ID ONLY) ONE ×3 (07:17→11:33)
[2023-08-09] MEDS ORDERED: GENTAMICIN SO4 80 MG/2 ML VIAL ONE (07:17)
[2023-08-09] MEDS ORDERED: THROMBIN (BOVINE) 5,000 UNIT VIAL TP ONE (07:17)
[2023-08-09] MEDS ORDERED: LIDOCAINE 1%/EPI 1:100000 (20 ML MULTI DOSE VIAL) ONE (07:18)
[2023-08-09] MEDS ORDERED: FENTANYL CITRATE/PF 50 MCG/ML VIAL ONE ×3 (07:18→12:28)
[2023-08-09] MEDS ORDERED: BUPIVACAINE HCL/PF 0.5% (5MG/ML) 10 ML VIAL ONE (07:18)
[2023-08-09] MEDS ORDERED: BACITRACIN ZINC 15 GM TUBE TOPICAL OINTMENT ONE (07:18)
[2023-08-09] MEDS ORDERED: ROCURONIUM BROMIDE 50 MG/5 ML SYRINGE ONE ×2 (07:19→10:16)
[2023-08-09] MEDS ORDERED: MIDAZOLAM HCL 2 MG/2 ML SINGLE DOSE VIAL ONE (07:19)
[2023-08-09] MEDS ORDERED: PROPOFOL 20 ML ONE (07:19)
[2023-08-09] MEDS ORDERED: BUPIVACAINE LIPOSOME/PF (EXPAREL) 266 MG/20 ML VIAL ONE (08:07)
[2023-08-09] MEDS: ASPIRIN COATED 81 MG TABLET.EC PO SCH (09:23)
[2023-08-09] MEDS: ENOXAPARIN NA (PORCINE) 40 MG/0.4 ML DISP.SYRIN SQ SCH (09:23)
[2023-08-09] MEDS ORDERED: LIDOCAINE HCL/EPINEPHRINE/PF 10 ML VIAL NR ONE ×2 (09:41)
[2023-08-09] MEDS ORDERED: VANCOMYCIN 1 GM in NS (PRE-DOCKED) 1,000 MG/250 ML (RESTRICTED TO ID ONLY) IVPB ONE ×2 (09:47)
[2023-08-09] MEDS ORDERED: VANCOMYCIN 1 GM in D5W (PRE-DOCKED) 1,000 MG/250 ML (RESTRICTED TO ID ONLY IVPB ONE ×3 (09:47→11:46)
[2023-08-09] MEDS ORDERED: ceFAZolin SODIUM 1 GM VIAL IVPB ONE ×2 (09:50)
[2023-08-09] MEDS ORDERED: THROMBIN (BOVINE) 20,000 UNIT VIAL TP ONE ×2 (10:15)
[2023-08-09] MEDS ORDERED: HYDROGEN PEROXIDE 473 ML PO ONE ×2 (10:33)
[2023-08-09] MEDS: hydrALAZINE HCL 50 MG TABLET (FP) PO SCH ×2 (10:59→22:33)
[2023-08-09] MEDS: amLODIPine BESYLATE 5 MG TABLET (FP) PO SCH (10:59)
[2023-08-09] MEDS ORDERED: BUPIVACAINE LIPOSOME/PF (EXPAREL) 266 MG/20 ML VIAL NR ONE ×2 (11:22→11:50)
[2023-08-09] MEDS ORDERED: BUPIVACAINE HCL/PF 0.5% (5MG/ML) 10 ML VIAL IJ ONE ×2 (11:22→11:50)
[2023-08-09] MEDS ORDERED: ONDANSETRON 4 MG/2 ML VIAL ONE (11:33)
[2023-08-09] MEDS ORDERED: GLYCOPYRROLATE 0.2 MG/1 ML VIAL ONE (11:33)
[2023-08-09] MEDS ORDERED: ceFAZolin SODIUM 1 GM VIAL ONE (11:33)
[2023-08-09] MEDS ORDERED: TRANEXAMIC ACID 1000 MG/10 ML VIAL ONE (11:33)
[2023-08-09] MEDS ORDERED: DEXAMETHASONE SOD PHOSPHATE 4 MG/1 ML VIAL ONE (11:33)
[2023-08-09] MEDS ORDERED: NEOSTIGMINE METHYLSULFATE 0.5 MG/1 ML - 10 ML MDV ONE (11:34)
[2023-08-09] MEDS ORDERED: ONDANSETRON 4 MG/2 ML VIAL IVPUSH PRN ×2 (12:59→13:10)
[2023-08-09] MEDS ORDERED: ACETAMINOPHEN 1000 MG/100 ML BAG IVPB ONE (13:00)
[2023-08-09] MEDS ORDERED: diphenhydrAMINE HCL 25 MG CAPSULE (FP) PO PRN (13:10)
[2023-08-09] MEDS ORDERED: ACETAMINOPHEN INJECTION 100 ML IVPB ONE (14:02)
[2023-08-09] MEDS: ACETAMINOPHEN 1000 MG/100 ML BAG IVPB SCH ×2 (14:06→20:16)
[2023-08-09] MEDS: DOCUSATE SODIUM 100 MG CAPSULE (FP) PO SCH ×2 (20:19→22:33)
[2023-08-09] MEDS: SODIUM CHLORIDE 1,000 ML IV SCH (20:19)
[2023-08-09] MEDS: HEPARIN NA (PORCINE) 5,000 UNITS/ML 1ML VIAL SQ SCH (22:33)
[2023-08-09] MEDS: ATORVASTATIN CA 40 MG TABLET (FP) PO SCH (22:33)
[2023-08-10] MEDS: AZTREONAM 1 GM in DEXTROSE 5%-WATER - 50 ML IVPB SCH ×3 (02:50→17:57)
[2023-08-10] MEDS: ACETAMINOPHEN 1000 MG/100 ML BAG IVPB SCH ×2 (03:04→08:20)
[2023-08-10] MEDS: HEPARIN NA (PORCINE) 5,000 UNITS/ML 1ML VIAL SQ SCH ×4 (06:34→22:56)
[2023-08-10] MEDS: DOCUSATE SODIUM 100 MG CAPSULE (FP) PO SCH ×3 (06:35→22:56)
[2023-08-10 07:16] LABS: HEMATOCRIT 25.4 % (35.4-49); HEMOGLOBIN 8.3 GM/dL (11.7-16.9); MCH 27.9 pg (25.7-33.7); MCHC 32.7 g/dl (32.0-35.9); MEAN CELL VOLUME 85.2 fl (80-96); MEAN PLT VOLUME 6.8 fl (7.5-11.1); PLATELET COUNT 613 10^3/uL (134-434); RBC 2.99 M/mm3 (4.00-5.60); RDW 14.8 % (11.9-15.9); WHITE BLOOD COUNT 18.9 K/mm3 (4.0-10.0)
[2023-08-10 07:36] LABS: POTASSIUM 4.6 mmol/L (3.5-5.1)
[2023-08-10 07:41] LABS: ALBUMIN 1.4 g/dl (3.4-5.0); BLOOD UREA NITROGEN 35.6 mg/dL (7-18); CALCIUM 7.7 mg/dL (8.5-10.1)
[2023-08-10 07:44] LABS: CREATININE 1.4 mg/dL (0.55-1.3)
[2023-08-10 07:46] LABS: BILIRUBIN,TOTAL 0.3 mg/dL (0.2-1); TOT PROT 5.3 g/dl (6.4-8.2)
[2023-08-10] MEDS: FERROUS SO4 325 MG TABLET (FP) PO SCH ×2 (10:05→10:11)
[2023-08-10] MEDS: FOLIC ACID 1 MG TABLET (FP) PO SCH (10:11)
[2023-08-10] MEDS: hydrALAZINE HCL 50 MG TABLET (FP) PO SCH ×2 (10:11→22:56)
[2023-08-10] MEDS: amLODIPine BESYLATE 5 MG TABLET (FP) PO SCH (10:11)
[2023-08-10] MEDS: SODIUM CHLORIDE 1,000 ML IV SCH (14:00)
[2023-08-10] MEDS: oxyCODONE HCL 5 MG TABLET PO PRN (17:56)
[2023-08-10] MEDS: ATORVASTATIN CA 40 MG TABLET (FP) PO SCH (22:56)
[2023-08-11] MEDS: AZTREONAM 1 GM in DEXTROSE 5%-WATER - 50 ML IVPB SCH ×2 (02:23→09:59)
[2023-08-11] MEDS ORDERED: amLODIPine BESYLATE 2.5 MG TABLET (FP) PO ONE (03:15)
[2023-08-11] MEDS ORDERED: POLYETHYLENE GLYCOL (HEALTHYLAX) 3350 17 GM PACKET PO PRN (05:09)
[2023-08-11] MEDS: DOCUSATE SODIUM 100 MG CAPSULE (FP) PO SCH ×3 (06:31→22:14)
[2023-08-11] MEDS: HEPARIN NA (PORCINE) 5,000 UNITS/ML 1ML VIAL SQ SCH ×3 (06:31→22:14)
[2023-08-11 07:28] LABS: BASO % 0.3 % (0-2.0); EOS % 0.8 % (0-4.5); HEMOGLOBIN 8.4 GM/dL (11.7-16.9); LYMPH % 8.6 % (8-40); MCH 27.5 pg (25.7-33.7); MCHC 32.2 g/dl (32.0-35.9); MEAN CELL VOLUME 85.4 fl (80-96); MEAN PLT VOLUME 6.9 fl (7.5-11.1); MONO % 8.9 % (3.8-10.2); NEUT % 81.4 % (42.8-82.8); PLATELET COUNT 673 10^3/uL (134-434); RBC 3.04 M/mm3 (4.00-5.60); RDW 14.9 % (11.9-15.9); WHITE BLOOD COUNT 16.6 K/mm3 (4.0-10.0)
[2023-08-11 07:57] LABS: POTASSIUM 4.4 mmol/L (3.5-5.1)
[2023-08-11 08:01] LABS: ALBUMIN 1.3 g/dl (3.4-5.0); BLOOD UREA NITROGEN 39.9 mg/dL (7-18); CALCIUM 7.9 mg/dL (8.5-10.1)
[2023-08-11 08:04] LABS: CREATININE 1.3 mg/dL (0.55-1.3)
[2023-08-11 08:06] LABS: BILIRUBIN,TOTAL 0.3 mg/dL (0.2-1); TOT PROT 5.7 g/dl (6.4-8.2)
[2023-08-11] MEDS: hydrALAZINE HCL 50 MG TABLET (FP) PO SCH ×2 (09:57→22:14)
[2023-08-11] MEDS: amLODIPine BESYLATE 5 MG TABLET (FP) PO SCH (09:57)
[2023-08-11] MEDS: FOLIC ACID 1 MG TABLET (FP) PO SCH (09:57)
[2023-08-11] MEDS: oxyCODONE HCL 5 MG TABLET PO PRN ×2 (09:57→16:18)
[2023-08-11] MEDS: FERROUS SO4 325 MG TABLET (FP) PO SCH (09:57)
[2023-08-11] MEDS ORDERED: SODIUM CHLORIDE 1,000 ML IV SCH (11:45)
[2023-08-11] MEDS: ACETAMINOPHEN 500 MG TABLET (FP) PO PRN (15:16)
[2023-08-11] MEDS: ATORVASTATIN CA 40 MG TABLET (FP) PO SCH (22:14)
[2023-08-12] MEDS: DOCUSATE SODIUM 100 MG CAPSULE (FP) PO SCH ×3 (06:52→21:28)
[2023-08-12] MEDS: HEPARIN NA (PORCINE) 5,000 UNITS/ML 1ML VIAL SQ SCH ×3 (06:52→21:29)
[2023-08-12 07:42] LABS: BASO % 0.4 % (0-2.0); EOS % 1.6 % (0-4.5); HEMATOCRIT 24.6 % (35.4-49); HEMOGLOBIN 8.1 GM/dL (11.7-16.9); LYMPH % 10.3 % (8-40); MCH 28.1 pg (25.7-33.7); MEAN PLT VOLUME 6.6 fl (7.5-11.1); NEUT % 81.7 % (42.8-82.8); PLATELET COUNT 668 10^3/uL (134-434); RBC 2.89 M/mm3 (4.00-5.60); RDW 15.1 % (11.9-15.9); WHITE BLOOD COUNT 14.3 K/mm3 (4.0-10.0)
[2023-08-12 07:53] LABS: POTASSIUM 4.3 mmol/L (3.5-5.1)
[2023-08-12 07:56] LABS: ALBUMIN 1.2 g/dl (3.4-5.0); BLOOD UREA NITROGEN 36.5 mg/dL (7-18)
[2023-08-12 08:01] LABS: BILIRUBIN,TOTAL 0.4 mg/dL (0.2-1); TOT PROT 5.6 g/dl (6.4-8.2)
[2023-08-12] MEDS: FUROSEMIDE 40 MG/4 ML INJECTABLE VIAL IVPUSH SCH (09:56)
[2023-08-12] MEDS: hydrALAZINE HCL 50 MG TABLET (FP) PO SCH ×2 (09:57→21:29)
[2023-08-12] MEDS: FERROUS SO4 325 MG TABLET (FP) PO SCH (09:57)
[2023-08-12] MEDS: FOLIC ACID 1 MG TABLET (FP) PO SCH (09:57)
[2023-08-12] MEDS: oxyCODONE HCL 5 MG TABLET PO PRN ×2 (09:58→17:25)
[2023-08-12] MEDS: amLODIPine BESYLATE 5 MG TABLET (FP) PO SCH (09:58)
[2023-08-12] MEDS: ATORVASTATIN CA 40 MG TABLET (FP) PO SCH (21:28)
[2023-08-13 06:14] VITALS: RESP 18
[2023-08-13] MEDS: oxyCODONE HCL 5 MG TABLET PO PRN ×2 (06:14→16:31)
[2023-08-13] MEDS: HEPARIN NA (PORCINE) 5,000 UNITS/ML 1ML VIAL SQ SCH ×2 (06:15→15:50)
[2023-08-13] MEDS: DOCUSATE SODIUM 100 MG CAPSULE (FP) PO SCH ×2 (06:15→15:54)
[2023-08-13 07:55] LABS: BASO % 0.6 % (0-2.0); EOS % 2.6 % (0-4.5); HEMATOCRIT 24.4 % (35.4-49); LYMPH % 12.3 % (8-40); MCH 27.8 pg (25.7-33.7); MCHC 32.6 g/dl (32.0-35.9); MEAN CELL VOLUME 85.2 fl (80-96); MEAN PLT VOLUME 6.6 fl (7.5-11.1); MONO % 7.8 % (3.8-10.2); NEUT % 76.7 % (42.8-82.8); PLATELET COUNT 760 10^3/uL (134-434); RBC 2.87 M/mm3 (4.00-5.60); RDW 15.3 % (11.9-15.9); WHITE BLOOD COUNT 14.3 K/mm3 (4.0-10.0)
[2023-08-13 08:18] LABS: POTASSIUM 4.2 mmol/L (3.5-5.1)
[2023-08-13 08:19] LABS: CALCIUM 7.8 mg/dL (8.5-10.1)
[2023-08-13 08:20] LABS: ALBUMIN 1.2 g/dl (3.4-5.0); BLOOD UREA NITROGEN 38.3 mg/dL (7-18)
[2023-08-13 08:23] LABS: CREATININE 1.1 mg/dL (0.55-1.3)
[2023-08-13 08:25] LABS: BILIRUBIN,TOTAL 0.3 mg/dL (0.2-1); TOT PROT 5.6 g/dl (6.4-8.2)
[2023-08-13] MEDS: FOLIC ACID 1 MG TABLET (FP) PO SCH (11:45)
[2023-08-13] MEDS: amLODIPine BESYLATE 5 MG TABLET (FP) PO SCH (11:45)
[2023-08-13] MEDS: FUROSEMIDE 40 MG/4 ML INJECTABLE VIAL IVPUSH SCH (11:45)
[2023-08-13] MEDS: hydrALAZINE HCL 50 MG TABLET (FP) PO SCH (11:45)
[2023-08-13] MEDS: FERROUS SO4 325 MG TABLET (FP) PO SCH (11:45)
[2023-08-13 15:43] VITALS: BP 155/76; PULSE 84; TEMP 98.8
[2023-08-13] MEDS: ACETAMINOPHEN 500 MG TABLET (FP) PO PRN (15:51)
== END 2023-08-13 17:56 | DRG 460 ==
LOC: JER 21:35 → JERBED 08-02 00:38 → OBSVTOIN 08-02 14:40 → J7W 08-02 20:29 → J2C 08-09 11:12 → J4W 08-09 17:21
PROVIDERS: ADMIT Family Medicine Geriatric Medicine; ATTEND Family Medicine Geriatric Medicine
PROC: 4A1004G Monitoring of Central Nervous Electrical Activity, Intraoperative, Open Approach (ICD-10-PCS; 2023-08-04)
PROC: 4A1004G Monitoring of Central Nervous Electrical Activity, Intraoperative, Open Approach (ICD-10-PCS; 2023-08-09)
PROC: 0T7D8ZZ Dilation of Urethra, Via Natural or Artificial Opening Endoscopic (ICD-10-PCS; 2023-08-09)
PROC: 0SG1071 Fusion of 2 or more Lumbar Vertebral Joints with Autologous Tissue Substitute, Posterior Approach, Posterior Column, Open Approach (ICD-10-PCS; principal; 2023-08-09 08:00)
PROC: 0SG3071 Fusion of Lumbosacral Joint with Autologous Tissue Substitute, Posterior Approach, Posterior Column, Open Approach (ICD-10-PCS; 2023-08-09 08:00)
DX: M48.07 Spinal stenosis, lumbosacral region (principal); G82.20 Paraplegia, unspecified; N17.9 Acute kidney failure, unspecified; M47.896 Other spondylosis, lumbar region; I12.9 Hypertensive chronic kidney disease with stage 1 through stage 4 chronic kidney disease, or unspecified chronic kidney disease; E78.5 Hyperlipidemia, unspecified; F03.90 Unspecified dementia, unspecified severity, without behavioral disturbance, psychotic disturbance, mood disturbance, and anxiety; R73.03 Prediabetes; Z85.46 Personal history of malignant neoplasm of prostate; N40.0 Benign prostatic hyperplasia without lower urinary tract symptoms; D72.829 Elevated white blood cell count, unspecified; N18.9 Chronic kidney disease, unspecified; R33.9 Retention of urine, unspecified; N35.919 Unspecified urethral stricture, male, unspecified site; Z53.8 Procedure and treatment not carried out for other reasons
CPT/HCPCS: 36415; 71045-TC-FY; 72131-TC; 76000-TC-FY; 76775-TC; 76856-TC; 80048; 80053; 81003; 82962; 84484; 85025; 85027; 85610; 85730; 86850; 86900; 86901; 87086; 87186; 87635; 93005; 93010; 93970-TC; 93971; 94760; 97116-GP; 97161-GP; 99285-25; C1713; C1889; G0378; J1644

== ENCOUNTER 2023-09-09 15:36 | Inpatient (IN) | payer OTHER ==
[2023-09-09 18:29] LABS: EOS % 4.6 % (0-4.5); HEMATOCRIT 24.1 % (35.4-49); LYMPH % 21.2 % (8-40); MCH 26.7 pg (25.7-33.7); MCHC 33.4 g/dl (32.0-35.9); MEAN CELL VOLUME 79.8 fl (80-96); MONO % 8.2 % (3.8-10.2); PLATELET COUNT 829 10^3/uL (134-434); RBC 3.02 M/mm3 (4.00-5.60); RDW 16.5 % (11.9-15.9); WHITE BLOOD COUNT 9.9 K/mm3 (4.0-10.0)
[2023-09-09 18:31] LABS: MEAN PLT VOLUME 5.7 fl (7.5-11.1)
[2023-09-09 18:36] LABS: INR 1.05 (0.83-1.09); PROTHROMBIN TIME (PATIENT) 12.2 SEC (9.7-13.0)
[2023-09-09 18:39] LABS: ACTIVATED PTT 29.4 SECONDS (25.2-36.5)
[2023-09-09 18:55] LABS: CALCIUM 8.5 mg/dL (8.5-10.1)
[2023-09-09 18:56] LABS: ALBUMIN 1.7 g/dl (3.4-5.0)
[2023-09-09 18:59] LABS: CREATININE 1.1 mg/dL (0.55-1.3)
[2023-09-09 19:01] LABS: BILIRUBIN,TOTAL 0.5 mg/dL (0.2-1); TOT PROT 6.7 g/dl (6.4-8.2)
[2023-09-09] MEDS ORDERED: HEPARIN NA (PORCINE) 5,000 UNITS/ML 1ML VIAL IVPUSH ONE (19:49)
[2023-09-09] MEDS ORDERED: HEPARIN NA (PORCINE) 5,000 UNITS/ML 1ML VIAL IVPUSH PRN (19:53)
[2023-09-09] MEDS ORDERED: VANCOMYCIN 1,000 MG in DEXTROSE 5%-WATER - 250 ML IVPB ONE (19:54)
[2023-09-09] MEDS ORDERED: MEROPENEM 1 GM in DEXTROSE 5%-WATER 100 ML IVPB ONE (19:54)
[2023-09-09] MEDS ORDERED: MEROPENEM 1 GM VIAL (RESTRICTED TO ID) IVPB ONE (20:06)
[2023-09-09] MEDS ORDERED: HEPARIN INFUSION - 25,000 UNITS/500 ML INFUS.BAG IVPB ONE (20:07)
[2023-09-09] MEDS ORDERED: VANCOMYCIN 1 GRAM (PRE-DOCKED) 1,000 MG/250 ML BAG IVPB ONE (20:07)
[2023-09-09] MEDS ORDERED: DEXTROSE 5%-WATER 100 ML IVPB ONE (20:08)
[2023-09-09] MEDS ORDERED: morphine CARPU-JECT 4 MG/1 ML DISP.SYRIN IVPUSH ONE (20:19)
[2023-09-09] MEDS ORDERED: morphine SULFATE 4 MG/ML VIAL ONE (20:39)
[2023-09-09] MEDS: HEPARIN INFUSION - 25,000 UNITS/500 ML INFUS.BAG IVPB SCH (20:45)
[2023-09-10] MEDS ORDERED: morphine CARPU-JECT 4 MG/1 ML DISP.SYRIN IVPUSH ONE (01:49)
[2023-09-10] MEDS ORDERED: morphine SULFATE 4 MG/ML VIAL ONE ×2 (01:56→12:21)
[2023-09-10] MEDS: HEPARIN NA (PORCINE) 5,000 UNITS/ML 1ML VIAL IVPUSH PRN ×2 (03:30→11:14)
[2023-09-10] MEDS ORDERED: HEPARIN NA (PORCINE) 5,000 UNITS/ML 1ML VIAL ONE ×2 (03:55→11:13)
[2023-09-10] MEDS ORDERED: DOCUSATE SODIUM 100 MG CAPSULE (FP) PO PRN (04:07)
[2023-09-10] MEDS ORDERED: POLYETHYLENE GLYCOL (HEALTHYLAX) 3350 17 GM PACKET PO PRN (04:07)
[2023-09-10] MEDS ORDERED: ACETAMINOPHEN 1000 MG/100 ML BAG IVPB PRN (04:10)
[2023-09-10] MEDS ORDERED: VANCOMYCIN 1 GRAM (PRE-DOCKED) 1,000 MG/250 ML BAG IVPB SCH (04:15)
[2023-09-10] MEDS: DEXTROSE 5%-0.45% SALINE 1,000 ML IV SCH (05:07)
[2023-09-10 09:26] LABS: EPI CELLS 4 /uL (0-25.1); HYALINE CASTS 5 /uL (0-3.1); URINE APPEARANCE CLOUDY; URINE BACTERIA 489 /uL (0-1359); URINE BILIRUBIN NEGATIVE (NEGATIVE); URINE COLOR YELLOW; URINE GLUCOSE (UA) NEGATIVE (NEGATIVE); URINE KETONE NEGATIVE (NEGATIVE); URINE LEUK ESTERASE 3+ (NEGATIVE); URINE NITRITE NEGATIVE (NEGATIVE); URINE PROTEIN 3+ (NEGATIVE); URINE RBC 24 /uL (0-23.9); URINE WBC 450 /uL (0-25.8)
[2023-09-10] MEDS: FOLIC ACID 1 MG TABLET (FP) PO SCH (09:33)
[2023-09-10] MEDS: amLODIPine BESYLATE 5 MG TABLET (FP) PO SCH (09:33)
[2023-09-10] MEDS: hydrALAZINE HCL 50 MG TABLET (FP) PO SCH ×2 (09:33→21:18)
[2023-09-10] MEDS: FERROUS SO4 325 MG TABLET (FP) PO SCH (09:33)
[2023-09-10] MEDS: FUROSEMIDE 20 MG TABLET (FP) PO SCH (09:33)
[2023-09-10] MEDS ORDERED: PIPERACILLIN/TAZOB 3.375 GM 3.375 GM in DEXTROSE 5%-WATER - 50 ML IVPB SCH (10:00)
[2023-09-10 10:43] LABS: BASO % 1.3 % (0-2.0); EOS % 8.1 % (0-4.5); HEMATOCRIT 25.7 % (35.4-49); HEMOGLOBIN 8.5 GM/dL (11.7-16.9); LYMPH % 22.3 % (8-40); MCH 26.9 pg (25.7-33.7); MCHC 33.1 g/dl (32.0-35.9); MEAN CELL VOLUME 81.2 fl (80-96); MEAN PLT VOLUME 6.1 fl (7.5-11.1); MONO % 6.7 % (3.8-10.2); NEUT % 61.6 % (42.8-82.8); PLATELET COUNT 841 10^3/uL (134-434); RBC 3.16 M/mm3 (4.00-5.60); RDW 16.3 % (11.9-15.9)
[2023-09-10 10:58] LABS: POTASSIUM 3.9 mmol/L (3.5-5.1)
[2023-09-10 11:00] LABS: ALBUMIN 1.6 g/dl (3.4-5.0); BLOOD UREA NITROGEN 21.4 mg/dL (7-18); CALCIUM 8.2 mg/dL (8.5-10.1)
[2023-09-10 11:03] LABS: CREATININE 1.1 mg/dL (0.55-1.3)
[2023-09-10 11:05] LABS: BILIRUBIN,TOTAL 0.4 mg/dL (0.2-1); TOT PROT 6.5 g/dl (6.4-8.2)
[2023-09-10] MEDS ORDERED: ACETAMINOPHEN INJECTION 100 ML IVPB ONE (11:12)
[2023-09-10] MEDS ORDERED: AZTREONAM 1 GM VIAL (RESTRICTED TO ID) ONE (11:41)
[2023-09-10] MEDS: AZTREONAM 1 GM in DEXTROSE 5%-WATER - 50 ML IVPB SCH ×2 (12:19→17:19)
[2023-09-10] MEDS: morphine SULFATE 4 MG/ML VIAL IVPUSH PRN ×2 (12:29→17:37)
[2023-09-10] MEDS: VANCOMYCIN/WATER 1250 MG 1,250 MG/250 ML BAG IVPB SCH (14:15)
[2023-09-10] MEDS: ATORVASTATIN CA 40 MG TABLET (FP) PO SCH (21:18)
[2023-09-10] MEDS: HEPARIN INFUSION - 25,000 UNITS/500 ML INFUS.BAG IVPB SCH (21:19)
[2023-09-11] MEDS: HEPARIN INFUSION - 25,000 UNITS/500 ML INFUS.BAG IVPB SCH ×4 (00:20→21:38)
[2023-09-11] MEDS: AZTREONAM 1 GM in DEXTROSE 5%-WATER - 50 ML IVPB SCH ×3 (01:25→17:31)
[2023-09-11] MEDS: VANCOMYCIN/WATER 1250 MG 1,250 MG/250 ML BAG IVPB SCH ×2 (02:05→14:02)
[2023-09-11] MEDS ORDERED: VANCOMYCIN 1 GRAM (PRE-DOCKED) 1,000 MG/250 ML BAG IVPB SCH (04:15)
[2023-09-11] MEDS: DEXTROSE 5%-0.45% SALINE 1,000 ML IV SCH (09:00)
[2023-09-11] MEDS: morphine SULFATE 4 MG/ML VIAL IVPUSH PRN ×3 (09:01→20:35)
[2023-09-11] MEDS: hydrALAZINE HCL 50 MG TABLET (FP) PO SCH ×2 (09:04→21:26)
[2023-09-11] MEDS: FOLIC ACID 1 MG TABLET (FP) PO SCH (09:05)
[2023-09-11] MEDS: FUROSEMIDE 20 MG TABLET (FP) PO SCH (09:05)
[2023-09-11] MEDS: FERROUS SO4 325 MG TABLET (FP) PO SCH (09:05)
[2023-09-11] MEDS: amLODIPine BESYLATE 5 MG TABLET (FP) PO SCH (09:05)
[2023-09-11 09:22] LABS: HEMATOCRIT 23.9 % (35.4-49); HEMOGLOBIN 7.9 GM/dL (11.7-16.9); MCHC 33.1 g/dl (32.0-35.9); MEAN CELL VOLUME 81.8 fl (80-96); PLATELET COUNT 749 10^3/uL (134-434); RBC 2.92 M/mm3 (4.00-5.60); RDW 16.6 % (11.9-15.9); WHITE BLOOD COUNT 14.1 K/mm3 (4.0-10.0)
[2023-09-11 09:23] LABS: BASO % 1.2 % (0-2.0); EOS % 4.9 % (0-4.5); HEMATOCRIT 24.1 % (35.4-49); HEMOGLOBIN 7.8 GM/dL (11.7-16.9); LYMPH % 12.1 % (8-40); MCH 26.5 pg (25.7-33.7); MCHC 32.5 g/dl (32.0-35.9); MEAN CELL VOLUME 81.4 fl (80-96); MEAN PLT VOLUME 6.1 fl (7.5-11.1); MONO % 5.3 % (3.8-10.2); NEUT % 76.5 % (42.8-82.8); PLATELET COUNT 752 10^3/uL (134-434); RBC 2.96 M/mm3 (4.00-5.60); RDW 16.7 % (11.9-15.9); WHITE BLOOD COUNT 14.2 K/mm3 (4.0-10.0)
[2023-09-11 09:56] LABS: POTASSIUM 4.1 mmol/L (3.5-5.1)
[2023-09-11 09:58] LABS: CALCIUM 8.3 mg/dL (8.5-10.1)
[2023-09-11 09:59] LABS: ALBUMIN 1.4 g/dl (3.4-5.0)
[2023-09-11] MEDS: HEPARIN NA (PORCINE) 5,000 UNITS/ML 1ML VIAL IVPUSH PRN (10:00)
[2023-09-11 10:03] LABS: BILIRUBIN,TOTAL 0.4 mg/dL (0.2-1); TOT PROT 5.7 g/dl (6.4-8.2)
[2023-09-11] MEDS ORDERED: AZTREONAM 1 GM VIAL (RESTRICTED TO ID) ONE (17:31)
[2023-09-11] MEDS: ATORVASTATIN CA 40 MG TABLET (FP) PO SCH (21:26)
[2023-09-12] MEDS: AZTREONAM 1 GM in DEXTROSE 5%-WATER - 50 ML IVPB SCH ×2 (01:17→09:36)
[2023-09-12] MEDS: VANCOMYCIN/WATER 1250 MG 1,250 MG/250 ML BAG IVPB SCH (02:28)
[2023-09-12] MEDS: morphine SULFATE 4 MG/ML VIAL IVPUSH PRN (06:24)
[2023-09-12 09:01] LABS: BASO % 0.7 % (0-2.0); EOS % 7.3 % (0-4.5); LYMPH % 13.5 % (8-40); MCH 25.9 pg (25.7-33.7); MCHC 32.2 g/dl (32.0-35.9); MEAN CELL VOLUME 80.6 fl (80-96); MEAN PLT VOLUME 6.1 fl (7.5-11.1); NEUT % 70.5 % (42.8-82.8); PLATELET COUNT 755 10^3/uL (134-434); RBC 3.11 M/mm3 (4.00-5.60); RDW 16.9 % (11.9-15.9); WHITE BLOOD COUNT 11.9 K/mm3 (4.0-10.0)
[2023-09-12 09:09] LABS: POTASSIUM 3.9 mmol/L (3.5-5.1)
[2023-09-12 09:12] LABS: ALBUMIN 1.3 g/dl (3.4-5.0); BLOOD UREA NITROGEN 22.9 mg/dL (7-18)
[2023-09-12 09:15] LABS: CREATININE 0.9 mg/dL (0.55-1.3)
[2023-09-12 09:16] LABS: BILIRUBIN,TOTAL 0.4 mg/dL (0.2-1)
[2023-09-12 09:17] LABS: TOT PROT 5.6 g/dl (6.4-8.2)
[2023-09-12] MEDS: FERROUS SO4 325 MG TABLET (FP) PO SCH (09:37)
[2023-09-12] MEDS: hydrALAZINE HCL 50 MG TABLET (FP) PO SCH ×2 (09:37→22:04)
[2023-09-12] MEDS: FUROSEMIDE 20 MG TABLET (FP) PO SCH (09:37)
[2023-09-12] MEDS: amLODIPine BESYLATE 5 MG TABLET (FP) PO SCH (09:37)
[2023-09-12] MEDS: FOLIC ACID 1 MG TABLET (FP) PO SCH (09:37)
[2023-09-12] MEDS ORDERED: MEROPENEM 1 GM VIAL (RESTRICTED TO ID) IVPB ONE ×2 (14:55→18:20)
[2023-09-12] MEDS ORDERED: MEROPENEM 1 GM in DEXTROSE 5%-WATER 100 ML IVPB SCH (15:00)
[2023-09-12] MEDS: MEROPENEM 1 GM in DEXTROSE 5%-WATER 100 ML IVPB SCH ×2 (15:10→18:26)
[2023-09-12] MEDS: HEPARIN INFUSION - 25,000 UNITS/500 ML INFUS.BAG IVPB SCH ×2 (16:24→20:30)
[2023-09-12] MEDS: ATORVASTATIN CA 40 MG TABLET (FP) PO SCH (22:04)
[2023-09-12] MEDS ORDERED: ACETAMINOPHEN 1000 MG/100 ML BAG IVPB ONE (22:45)
[2023-09-13] MEDS: MEROPENEM 1 GM in DEXTROSE 5%-WATER 100 ML IVPB SCH ×3 (01:14→17:16)
[2023-09-13] MEDS: FERROUS SO4 325 MG TABLET (FP) PO SCH (10:02)
[2023-09-13] MEDS: FOLIC ACID 1 MG TABLET (FP) PO SCH (10:02)
[2023-09-13] MEDS: HEPARIN INFUSION - 25,000 UNITS/500 ML INFUS.BAG IVPB SCH (10:02)
[2023-09-13] MEDS: amLODIPine BESYLATE 5 MG TABLET (FP) PO SCH (10:02)
[2023-09-13] MEDS: hydrALAZINE HCL 50 MG TABLET (FP) PO SCH ×2 (10:02→21:33)
[2023-09-13] MEDS: FUROSEMIDE 20 MG TABLET (FP) PO SCH (10:02)
[2023-09-13 10:47] LABS: BASO % 0.5 % (0-2.0); EOS % 3.5 % (0-4.5); HEMATOCRIT 21.3 % (35.4-49); LYMPH % 10.8 % (8-40); MCH 26.2 pg (25.7-33.7); MCHC 32.7 g/dl (32.0-35.9); MEAN CELL VOLUME 80.1 fl (80-96); MEAN PLT VOLUME 6.1 fl (7.5-11.1); NEUT % 78.2 % (42.8-82.8); PLATELET COUNT 663 10^3/uL (134-434); RBC 2.66 M/mm3 (4.00-5.60); RDW 17.3 % (11.9-15.9); WHITE BLOOD COUNT 10.6 K/mm3 (4.0-10.0)
[2023-09-13 10:57] LABS: POTASSIUM 3.6 mmol/L (3.5-5.1)
[2023-09-13 11:03] LABS: CALCIUM 8.2 mg/dL (8.5-10.1)
[2023-09-13 11:04] LABS: ALBUMIN 1.2 g/dl (3.4-5.0); BLOOD UREA NITROGEN 22.5 mg/dL (7-18)
[2023-09-13 11:07] LABS: CREATININE 0.9 mg/dL (0.55-1.3)
[2023-09-13 11:08] LABS: BILIRUBIN,TOTAL 0.5 mg/dL (0.2-1); TOT PROT 5.4 g/dl (6.4-8.2)
[2023-09-13] MEDS: APIXABAN 5 MG TABLET PO SCH (21:33)
[2023-09-13] MEDS: ATORVASTATIN CA 40 MG TABLET (FP) PO SCH (21:33)
[2023-09-14] MEDS: MEROPENEM 1 GM in DEXTROSE 5%-WATER 100 ML IVPB SCH ×3 (01:14→17:19)
[2023-09-14 09:02] LABS: BASO % 0.6 % (0-2.0); HEMATOCRIT 22.3 % (35.4-49); HEMOGLOBIN 7.4 GM/dL (11.7-16.9); LYMPH % 13.2 % (8-40); MCH 26.8 pg (25.7-33.7); MCHC 33.2 g/dl (32.0-35.9); MEAN CELL VOLUME 80.7 fl (80-96); MEAN PLT VOLUME 6.1 fl (7.5-11.1); MONO % 9.5 % (3.8-10.2); NEUT % 70.7 % (42.8-82.8); PLATELET COUNT 728 10^3/uL (134-434); RBC 2.76 M/mm3 (4.00-5.60); RDW 16.6 % (11.9-15.9); WHITE BLOOD COUNT 8.7 K/mm3 (4.0-10.0)
[2023-09-14 09:19] LABS: POTASSIUM 3.5 mmol/L (3.5-5.1)
[2023-09-14 09:21] LABS: CALCIUM 7.9 mg/dL (8.5-10.1)
[2023-09-14 09:22] LABS: ALBUMIN 1.2 g/dl (3.4-5.0); BLOOD UREA NITROGEN 18.2 mg/dL (7-18)
[2023-09-14 09:25] LABS: CREATININE 0.9 mg/dL (0.55-1.3)
[2023-09-14 09:26] LABS: BILIRUBIN,TOTAL 0.5 mg/dL (0.2-1); TOT PROT 5.5 g/dl (6.4-8.2)
[2023-09-14] MEDS ORDERED: MEROPENEM 1 GM VIAL (RESTRICTED TO ID) IVPB ONE ×2 (10:01→17:15)
[2023-09-14] MEDS: amLODIPine BESYLATE 5 MG TABLET (FP) PO SCH (10:08)
[2023-09-14] MEDS: FOLIC ACID 1 MG TABLET (FP) PO SCH (10:08)
[2023-09-14] MEDS: FERROUS SO4 325 MG TABLET (FP) PO SCH (10:08)
[2023-09-14] MEDS: FUROSEMIDE 20 MG TABLET (FP) PO SCH (10:08)
[2023-09-14] MEDS: APIXABAN 5 MG TABLET PO SCH (10:08)
[2023-09-14] MEDS: hydrALAZINE HCL 50 MG TABLET (FP) PO SCH ×2 (10:08→22:10)
[2023-09-14] MEDS: ATORVASTATIN CA 40 MG TABLET (FP) PO SCH (22:10)
[2023-09-14] MEDS: ENOXAPARIN NA (PORCINE) 80 MG/0.8 ML DISP.SYRIN SQ SCH (22:11)
[2023-09-15] MEDS: MEROPENEM 1 GM in DEXTROSE 5%-WATER 100 ML IVPB SCH ×3 (02:23→17:18)
[2023-09-15] MEDS: ENOXAPARIN NA (PORCINE) 80 MG/0.8 ML DISP.SYRIN SQ SCH ×2 (09:08→21:19)
[2023-09-15] MEDS: hydrALAZINE HCL 50 MG TABLET (FP) PO SCH ×2 (09:09→21:18)
[2023-09-15] MEDS: FUROSEMIDE 20 MG TABLET (FP) PO SCH (09:09)
[2023-09-15] MEDS: FOLIC ACID 1 MG TABLET (FP) PO SCH (09:09)
[2023-09-15] MEDS: amLODIPine BESYLATE 5 MG TABLET (FP) PO SCH (09:09)
[2023-09-15] MEDS: FERROUS SO4 325 MG TABLET (FP) PO SCH (09:09)
[2023-09-15 10:23] LABS: EOS % 3.7 % (0-4.5); HEMATOCRIT 24.3 % (35.4-49); HEMOGLOBIN 8.1 GM/dL (11.7-16.9); LYMPH % 17.4 % (8-40); MCH 26.7 pg (25.7-33.7); MCHC 33.1 g/dl (32.0-35.9); MEAN CELL VOLUME 80.5 fl (80-96); MEAN PLT VOLUME 6.1 fl (7.5-11.1); MONO % 9.5 % (3.8-10.2); NEUT % 68.4 % (42.8-82.8); PLATELET COUNT 770 10^3/uL (134-434); RBC 3.02 M/mm3 (4.00-5.60); RDW 17.1 % (11.9-15.9); WHITE BLOOD COUNT 7.2 K/mm3 (4.0-10.0)
[2023-09-15 10:43] LABS: POTASSIUM 3.6 mmol/L (3.5-5.1)
[2023-09-15 10:53] LABS: ALBUMIN 1.4 g/dl (3.4-5.0)
[2023-09-15 10:54] LABS: BLOOD UREA NITROGEN 16.9 mg/dL (7-18); CALCIUM 8.2 mg/dL (8.5-10.1)
[2023-09-15 10:56] LABS: CREATININE 0.9 mg/dL (0.55-1.3)
[2023-09-15 10:58] LABS: BILIRUBIN,TOTAL 0.4 mg/dL (0.2-1)
[2023-09-15] MEDS: VANCOMYCIN/WATER FOR INJ (PEG) 1,000 MG/200 ML BAG IVPB SCH (11:58)
[2023-09-15] MEDS: ATORVASTATIN CA 40 MG TABLET (FP) PO SCH (21:18)
[2023-09-16] MEDS ORDERED: BUPIVACAINE LIPOSOME/PF (EXPAREL) 266 MG/20 ML VIAL NR ONE
[2023-09-16] MEDS: VANCOMYCIN/WATER FOR INJ (PEG) 1,000 MG/200 ML BAG IVPB SCH ×3 (00:16→23:46)
[2023-09-16] MEDS: MEROPENEM 1 GM in DEXTROSE 5%-WATER 100 ML IVPB SCH ×3 (03:11→18:04)
[2023-09-16 08:30] LABS: BASO % 1.2 % (0-2.0); EOS % 9.7 % (0-4.5); HEMATOCRIT 20.5 % (35.4-49); LYMPH % 26.7 % (8-40); MCH 27.4 pg (25.7-33.7); MCHC 33.9 g/dl (32.0-35.9); MEAN CELL VOLUME 80.7 fl (80-96); MEAN PLT VOLUME 6.2 fl (7.5-11.1); MONO % 10.6 % (3.8-10.2); NEUT % 51.8 % (42.8-82.8); PLATELET COUNT 636 10^3/uL (134-434); RBC 2.53 M/mm3 (4.00-5.60); RDW 17.2 % (11.9-15.9); WHITE BLOOD COUNT 6.4 K/mm3 (4.0-10.0)
[2023-09-16 08:35] LABS: HEMOGLOBIN 6.9 GM/dL (11.7-16.9)
[2023-09-16 08:52] LABS: POTASSIUM 3.5 mmol/L (3.5-5.1)
[2023-09-16 08:59] LABS: ALBUMIN 1.2 g/dl (3.4-5.0); CALCIUM 7.9 mg/dL (8.5-10.1)
[2023-09-16 09:02] LABS: CREATININE 0.8 mg/dL (0.55-1.3)
[2023-09-16 09:04] LABS: BILIRUBIN,TOTAL 0.4 mg/dL (0.2-1); TOT PROT 5.1 g/dl (6.4-8.2)
[2023-09-16] MEDS: FERROUS SO4 325 MG TABLET (FP) PO SCH (10:26)
[2023-09-16] MEDS: amLODIPine BESYLATE 5 MG TABLET (FP) PO SCH (10:26)
[2023-09-16] MEDS: FUROSEMIDE 20 MG TABLET (FP) PO SCH (10:26)
[2023-09-16] MEDS: hydrALAZINE HCL 50 MG TABLET (FP) PO SCH ×2 (10:26→21:46)
[2023-09-16] MEDS: FOLIC ACID 1 MG TABLET (FP) PO SCH (10:26)
[2023-09-16] MEDS ORDERED: GENTAMICIN SO4 80 MG/2 ML VIAL ONE ×2 (12:06→12:14)
[2023-09-16] MEDS ORDERED: BUPIVACAINE HCL/PF 0.25% (2.5MG/ML) 10 ML VIAL ONE (12:07)
[2023-09-16] MEDS ORDERED: BUPIVACAINE HCL/PF 0.5% (5MG/ML) 10 ML VIAL ONE (12:07)
[2023-09-16] MEDS ORDERED: THROMBIN (BOVINE) 5,000 UNIT VIAL TP ONE ×3 (12:07→13:51)
[2023-09-16] MEDS ORDERED: BUPIVACAINE LIPOSOME/PF (EXPAREL) 266 MG/20 ML VIAL ONE (12:08)
[2023-09-16] MEDS ORDERED: LIDOCAINE 1%/EPI 1:100000 (20 ML MULTI DOSE VIAL) ONE (12:08)
[2023-09-16] MEDS ORDERED: VANCOMYCIN 1,000 MG VIAL (RESTRICTED TO ID ONLY) ONE (12:14)
[2023-09-16] MEDS ORDERED: PROPOFOL 20 ML ONE (12:40)
[2023-09-16] MEDS ORDERED: ROCURONIUM BROMIDE 50 MG/5 ML SYRINGE ONE ×2 (12:40→14:43)
[2023-09-16] MEDS ORDERED: FENTANYL CITRATE/PF 50 MCG/ML VIAL ONE ×3 (12:40→16:44)
[2023-09-16] MEDS ORDERED: TRANEXAMIC ACID 1000 MG/10 ML VIAL ONE (13:35)
[2023-09-16] MEDS ORDERED: SODIUM CHLORIDE 0.9% P/F 10 ML VIAL IJ ONE (13:38)
[2023-09-16] MEDS ORDERED: LIDOCAINE 1%/EPI 1:100000 (20 ML MULTI DOSE VIAL) IJ ONE ×2 (13:38)
[2023-09-16] MEDS ORDERED: ceFAZolin SODIUM 1 GM VIAL ONE (13:38)
[2023-09-16] MEDS ORDERED: ceFAZolin 2 GRAM PREMIX BAG IVPB ONE ×2 (13:40)
[2023-09-16] MEDS ORDERED: HYDROGEN PEROXIDE 473 ML PO ONE ×2 (13:51)
[2023-09-16] MEDS ORDERED: SUGAMMADEX SODIUM 200 MG/2 ML VIAL ONE (14:03)
[2023-09-16] MEDS ORDERED: ALBUTEROL SO4 HFA INHALER IH ONE (14:03)
[2023-09-16] MEDS ORDERED: HYDROmorphone HCl 2 MG/ML VIAL ONE (14:03)
[2023-09-16] MEDS ORDERED: SUCCINYLCHOLINE CHLORIDE 200 MG/10 ML SYRINGE ONE (15:00)
[2023-09-16] MEDS ORDERED: METOPROLOL TARTRATE 5 MG/5 ML VIAL ONE (15:16)
[2023-09-16] MEDS ORDERED: oxyCODONE HCL 5 MG TABLET PO PRN (15:40)
[2023-09-16] MEDS ORDERED: ACETAMINOPHEN 1000 MG/100 ML BAG IVPB ONE (15:47)
[2023-09-16] MEDS ORDERED: POLYETHYLENE GLYCOL (HEALTHYLAX) 3350 17 GM PACKET PO PRN (15:53)
[2023-09-16] MEDS ORDERED: DOCUSATE SODIUM 100 MG CAPSULE (FP) PO PRN (15:53)
[2023-09-16] MEDS ORDERED: LACTATED RINGERS SOLUTION 1,000 ML IV SCH (16:00)
[2023-09-16] MEDS: ACETAMINOPHEN 1000 MG/100 ML BAG IVPB SCH ×2 (16:01→21:47)
[2023-09-16 16:45] LABS: BASO % 0.7 % (0-2.0); EOS % 1.3 % (0-4.5); HEMATOCRIT 27.1 % (35.4-49); HEMOGLOBIN 8.9 GM/dL (11.7-16.9); LYMPH % 7.9 % (8-40); MCH 27.1 pg (25.7-33.7); MCHC 32.9 g/dl (32.0-35.9); MEAN CELL VOLUME 82.4 fl (80-96); MEAN PLT VOLUME 6.3 fl (7.5-11.1); MONO % 2.3 % (3.8-10.2); NEUT % 87.8 % (42.8-82.8); PLATELET COUNT 635 10^3/uL (134-434); RBC 3.29 M/mm3 (4.00-5.60); RDW 17.1 % (11.9-15.9); WHITE BLOOD COUNT 9.9 K/mm3 (4.0-10.0)
[2023-09-16] MEDS: ATORVASTATIN CA 40 MG TABLET (FP) PO SCH (21:46)
[2023-09-16] MEDS: ENOXAPARIN NA (PORCINE) 80 MG/0.8 ML DISP.SYRIN SQ SCH (21:46)
[2023-09-17] MEDS: MEROPENEM 1 GM in DEXTROSE 5%-WATER 100 ML IVPB SCH ×3 (02:38→18:17)
[2023-09-17] MEDS: ACETAMINOPHEN 1000 MG/100 ML BAG IVPB SCH ×4 (06:00→22:00)
[2023-09-17] MEDS: ENOXAPARIN NA (PORCINE) 80 MG/0.8 ML DISP.SYRIN SQ SCH ×2 (09:08→21:42)
[2023-09-17] MEDS: hydrALAZINE HCL 50 MG TABLET (FP) PO SCH ×2 (09:09→21:42)
[2023-09-17] MEDS: FOLIC ACID 1 MG TABLET (FP) PO SCH (09:11)
[2023-09-17] MEDS: FERROUS SO4 325 MG TABLET (FP) PO SCH (09:12)
[2023-09-17] MEDS: FUROSEMIDE 20 MG TABLET (FP) PO SCH (09:12)
[2023-09-17] MEDS: amLODIPine BESYLATE 5 MG TABLET (FP) PO SCH (09:12)
[2023-09-17 09:31] LABS: EOS % 0.1 % (0-4.5); HEMATOCRIT 24.8 % (35.4-49); HEMOGLOBIN 8.3 GM/dL (11.7-16.9); LYMPH % 13.7 % (8-40); MCH 27.5 pg (25.7-33.7); MCHC 33.7 g/dl (32.0-35.9); MEAN CELL VOLUME 81.6 fl (80-96); MEAN PLT VOLUME 6.3 fl (7.5-11.1); MONO % 6.1 % (3.8-10.2); NEUT % 79.1 % (42.8-82.8); PLATELET COUNT 677 10^3/uL (134-434); RBC 3.03 M/mm3 (4.00-5.60); RDW 16.7 % (11.9-15.9); WHITE BLOOD COUNT 10.8 K/mm3 (4.0-10.0)
[2023-09-17 09:51] LABS: BLOOD UREA NITROGEN 26.9 mg/dL (7-18)
[2023-09-17 09:52] LABS: CALCIUM 8.2 mg/dL (8.5-10.1)
[2023-09-17 09:54] LABS: CREATININE 1.3 mg/dL (0.55-1.3)
[2023-09-17 09:57] LABS: BILIRUBIN,TOTAL 0.4 mg/dL (0.2-1); TOT PROT 5.8 g/dl (6.4-8.2)
[2023-09-17 09:59] LABS: ALBUMIN 1.5 g/dl (3.4-5.0)
[2023-09-17] MEDS: VANCOMYCIN/WATER FOR INJ (PEG) 1,000 MG/200 ML BAG IVPB SCH (11:23)
[2023-09-17] MEDS: ATORVASTATIN CA 40 MG TABLET (FP) PO SCH (21:42)
[2023-09-17] MEDS: ASCORBIC ACID 250 MG TABLET (FP) PO SCH (22:15)
[2023-09-17] MEDS: MULTIVITAMINS (DAILY MVI) TABLET (FP) PO SCH (22:15)
[2023-09-18] MEDS: VANCOMYCIN/WATER FOR INJ (PEG) 1,000 MG/200 ML BAG IVPB SCH ×3 (00:50→23:55)
[2023-09-18] MEDS: MEROPENEM 1 GM in DEXTROSE 5%-WATER 100 ML IVPB SCH ×3 (01:46→17:19)
[2023-09-18 09:23] LABS: BASO % 0.9 % (0-2.0); EOS % 3.7 % (0-4.5); HEMATOCRIT 26.8 % (35.4-49); HEMOGLOBIN 8.8 GM/dL (11.7-16.9); LYMPH % 14.5 % (8-40); MCH 27.1 pg (25.7-33.7); MCHC 32.9 g/dl (32.0-35.9); MEAN CELL VOLUME 82.5 fl (80-96); MEAN PLT VOLUME 6.4 fl (7.5-11.1); NEUT % 72.9 % (42.8-82.8); PLATELET COUNT 692 10^3/uL (134-434); RBC 3.25 M/mm3 (4.00-5.60); RDW 16.7 % (11.9-15.9)
[2023-09-18 09:45] LABS: POTASSIUM 4.1 mmol/L (3.5-5.1)
[2023-09-18 09:47] LABS: CALCIUM 8.2 mg/dL (8.5-10.1)
[2023-09-18 09:48] LABS: ALBUMIN 1.5 g/dl (3.4-5.0); BLOOD UREA NITROGEN 31.6 mg/dL (7-18)
[2023-09-18 09:50] LABS: CREATININE 1.3 mg/dL (0.55-1.3)
[2023-09-18 09:52] LABS: BILIRUBIN,TOTAL 0.7 mg/dL (0.2-1); TOT PROT 5.9 g/dl (6.4-8.2)
[2023-09-18] MEDS: FUROSEMIDE 20 MG TABLET (FP) PO SCH (09:54)
[2023-09-18] MEDS: ENOXAPARIN NA (PORCINE) 80 MG/0.8 ML DISP.SYRIN SQ SCH ×2 (09:54→21:36)
[2023-09-18] MEDS: ASCORBIC ACID 250 MG TABLET (FP) PO SCH (09:54)
[2023-09-18] MEDS: MULTIVITAMINS (DAILY MVI) TABLET (FP) PO SCH (09:54)
[2023-09-18] MEDS: FOLIC ACID 1 MG TABLET (FP) PO SCH (09:54)
[2023-09-18] MEDS: FERROUS SO4 325 MG TABLET (FP) PO SCH (09:54)
[2023-09-18] MEDS: amLODIPine BESYLATE 5 MG TABLET (FP) PO SCH (09:54)
[2023-09-18] MEDS: hydrALAZINE HCL 50 MG TABLET (FP) PO SCH ×2 (09:54→21:36)
[2023-09-18] MEDS ORDERED: ACETAMINOPHEN 1000 MG/100 ML BAG IVPB PRN (14:53)
[2023-09-18] MEDS ORDERED: INSULIN (NOVOLOG MIX 70/30) 100 UNITS/ML MDV SQ ONE (17:27)
[2023-09-18] MEDS: ATORVASTATIN CA 40 MG TABLET (FP) PO SCH (21:36)
[2023-09-19] MEDS: MEROPENEM 1 GM in DEXTROSE 5%-WATER 100 ML IVPB SCH ×3 (01:07→17:21)
[2023-09-19 08:05] LABS: BASO % 1.1 % (0-2.0); EOS % 7.4 % (0-4.5); HEMATOCRIT 25.7 % (35.4-49); HEMOGLOBIN 8.5 GM/dL (11.7-16.9); LYMPH % 18.7 % (8-40); MCH 27.5 pg (25.7-33.7); MCHC 33.2 g/dl (32.0-35.9); MEAN CELL VOLUME 82.7 fl (80-96); MEAN PLT VOLUME 6.2 fl (7.5-11.1); MONO % 7.6 % (3.8-10.2); NEUT % 65.2 % (42.8-82.8); PLATELET COUNT 666 10^3/uL (134-434); RBC 3.11 M/mm3 (4.00-5.60); RDW 17.1 % (11.9-15.9); WHITE BLOOD COUNT 8.1 K/mm3 (4.0-10.0)
[2023-09-19 08:25] LABS: POTASSIUM 3.9 mmol/L (3.5-5.1)
[2023-09-19 08:48] LABS: ALBUMIN 1.4 g/dl (3.4-5.0); BLOOD UREA NITROGEN 31.1 mg/dL (7-18)
[2023-09-19 08:52] LABS: BILIRUBIN,TOTAL 0.5 mg/dL (0.2-1); TOT PROT 5.4 g/dl (6.4-8.2)
[2023-09-19] MEDS: ENOXAPARIN NA (PORCINE) 80 MG/0.8 ML DISP.SYRIN SQ SCH ×2 (09:10→21:15)
[2023-09-19] MEDS: amLODIPine BESYLATE 5 MG TABLET (FP) PO SCH (09:10)
[2023-09-19] MEDS: FERROUS SO4 325 MG TABLET (FP) PO SCH (09:10)
[2023-09-19] MEDS: ASCORBIC ACID 250 MG TABLET (FP) PO SCH (09:10)
[2023-09-19] MEDS: hydrALAZINE HCL 50 MG TABLET (FP) PO SCH ×2 (09:10→21:14)
[2023-09-19] MEDS: FUROSEMIDE 20 MG TABLET (FP) PO SCH (09:10)
[2023-09-19] MEDS: FOLIC ACID 1 MG TABLET (FP) PO SCH (09:10)
[2023-09-19] MEDS: MULTIVITAMINS (DAILY MVI) TABLET (FP) PO SCH (09:10)
[2023-09-19] MEDS: ACETAMINOPHEN 1000 MG/100 ML BAG IVPB PRN (21:13)
[2023-09-19] MEDS: ATORVASTATIN CA 40 MG TABLET (FP) PO SCH (21:14)
[2023-09-19] MEDS: APIXABAN 5 MG TABLET PO SCH (22:12)
[2023-09-20] MEDS: MEROPENEM 1 GM in DEXTROSE 5%-WATER 100 ML IVPB SCH ×3 (01:49→20:20)
[2023-09-20] MEDS: ACETAMINOPHEN 1000 MG/100 ML BAG IVPB PRN (03:25)
[2023-09-20] MEDS: APIXABAN 5 MG TABLET PO SCH ×2 (12:14→21:24)
[2023-09-20] MEDS: FUROSEMIDE 20 MG TABLET (FP) PO SCH (12:14)
[2023-09-20] MEDS: FERROUS SO4 325 MG TABLET (FP) PO SCH (12:14)
[2023-09-20] MEDS: FOLIC ACID 1 MG TABLET (FP) PO SCH (12:14)
[2023-09-20] MEDS: hydrALAZINE HCL 50 MG TABLET (FP) PO SCH ×2 (12:14→21:25)
[2023-09-20] MEDS: MULTIVITAMINS (DAILY MVI) TABLET (FP) PO SCH (12:14)
[2023-09-20] MEDS: amLODIPine BESYLATE 5 MG TABLET (FP) PO SCH (12:14)
[2023-09-20] MEDS: ASCORBIC ACID 250 MG TABLET (FP) PO SCH (12:15)
[2023-09-20] MEDS ORDERED: ACETAMINOPHEN 325 MG TABLET (FP) PO ONE (21:00)
[2023-09-20] MEDS: ATORVASTATIN CA 40 MG TABLET (FP) PO SCH (21:23)
[2023-09-20 23:00] VITALS: BMI 28.1
[2023-09-21] MEDS: MEROPENEM 1 GM in DEXTROSE 5%-WATER 100 ML IVPB SCH ×3 (01:37→18:02)
[2023-09-21] MEDS ORDERED: MEROPENEM 1 GM VIAL (RESTRICTED TO ID) IVPB ONE (11:00)
[2023-09-21] MEDS: ASCORBIC ACID 250 MG TABLET (FP) PO SCH (11:05)
[2023-09-21] MEDS: FUROSEMIDE 20 MG TABLET (FP) PO SCH (11:05)
[2023-09-21] MEDS: amLODIPine BESYLATE 5 MG TABLET (FP) PO SCH (11:05)
[2023-09-21] MEDS: FOLIC ACID 1 MG TABLET (FP) PO SCH (11:05)
[2023-09-21] MEDS: FERROUS SO4 325 MG TABLET (FP) PO SCH (11:05)
[2023-09-21] MEDS: APIXABAN 5 MG TABLET PO SCH ×2 (11:05→21:41)
[2023-09-21] MEDS: MULTIVITAMINS (DAILY MVI) TABLET (FP) PO SCH (11:05)
[2023-09-21] MEDS: hydrALAZINE HCL 50 MG TABLET (FP) PO SCH ×2 (11:05→21:41)
[2023-09-21] MEDS ORDERED: DAPTOMYCIN 700 MG in SODIUM CHLORIDE 50 ML IVPB SCH (14:00)
[2023-09-21] MEDS: DAPTOMYCIN 700 MG in SODIUM CHLORIDE 50 ML IVPB SCH (18:03)
[2023-09-22] MEDS: MEROPENEM 1 GM in DEXTROSE 5%-WATER 100 ML IVPB SCH ×3 (01:04→18:27)
[2023-09-22] MEDS ORDERED: MEROPENEM 1 GM VIAL (RESTRICTED TO ID) IVPB ONE (09:25)
[2023-09-22] MEDS: amLODIPine BESYLATE 5 MG TABLET (FP) PO SCH (09:27)
[2023-09-22] MEDS: APIXABAN 5 MG TABLET PO SCH ×2 (09:27→21:12)
[2023-09-22] MEDS: hydrALAZINE HCL 50 MG TABLET (FP) PO SCH ×2 (09:27→21:12)
[2023-09-22] MEDS: FUROSEMIDE 20 MG TABLET (FP) PO SCH (09:27)
[2023-09-22] MEDS: FERROUS SO4 325 MG TABLET (FP) PO SCH (09:27)
[2023-09-22] MEDS: ASCORBIC ACID 250 MG TABLET (FP) PO SCH (09:27)
[2023-09-22] MEDS: MULTIVITAMINS (DAILY MVI) TABLET (FP) PO SCH (09:27)
[2023-09-22] MEDS: FOLIC ACID 1 MG TABLET (FP) PO SCH (09:28)
[2023-09-22] MEDS: DAPTOMYCIN 700 MG in SODIUM CHLORIDE 50 ML IVPB SCH (14:41)
[2023-09-23] MEDS: MEROPENEM 1 GM in DEXTROSE 5%-WATER 100 ML IVPB SCH ×3 (01:33→17:08)
[2023-09-23 08:20] LABS: BASO % 0.6 % (0-2.0); EOS % 2.4 % (0-4.5); HEMATOCRIT 18.9 % (35.4-49); LYMPH % 13.5 % (8-40); MCH 27.4 pg (25.7-33.7); MCHC 33.2 g/dl (32.0-35.9); MEAN CELL VOLUME 82.4 fl (80-96); MEAN PLT VOLUME 6.4 fl (7.5-11.1); NEUT % 75.5 % (42.8-82.8); PLATELET COUNT 659 10^3/uL (134-434); RBC 2.29 M/mm3 (4.00-5.60); WHITE BLOOD COUNT 12.9 K/mm3 (4.0-10.0)
[2023-09-23 08:36] LABS: HEMOGLOBIN 6.3 GM/dL (11.7-16.9)
[2023-09-23 09:23] LABS: POTASSIUM 4.1 mmol/L (3.5-5.1)
[2023-09-23 09:31] LABS: ALBUMIN 1.4 g/dl (3.4-5.0)
[2023-09-23 09:33] LABS: BLOOD UREA NITROGEN 38.2 mg/dL (7-18)
[2023-09-23 09:36] LABS: BILIRUBIN,TOTAL 0.6 mg/dL (0.2-1); TOT PROT 5.4 g/dl (6.4-8.2)
[2023-09-23] MEDS: hydrALAZINE HCL 50 MG TABLET (FP) PO SCH ×2 (10:43→21:57)
[2023-09-23] MEDS: ASCORBIC ACID 250 MG TABLET (FP) PO SCH (10:44)
[2023-09-23] MEDS: FUROSEMIDE 20 MG TABLET (FP) PO SCH (10:44)
[2023-09-23] MEDS: amLODIPine BESYLATE 5 MG TABLET (FP) PO SCH (10:44)
[2023-09-23] MEDS: FOLIC ACID 1 MG TABLET (FP) PO SCH (10:44)
[2023-09-23] MEDS: MULTIVITAMINS (DAILY MVI) TABLET (FP) PO SCH (10:44)
[2023-09-23] MEDS: FERROUS SO4 325 MG TABLET (FP) PO SCH (10:44)
[2023-09-23] MEDS: DAPTOMYCIN 700 MG in SODIUM CHLORIDE 50 ML IVPB SCH (15:30)
[2023-09-23] MEDS ORDERED: FUROSEMIDE 40 MG/4 ML INJECTABLE VIAL IVPUSH ONE (21:38)
[2023-09-23] MEDS: APIXABAN 5 MG TABLET PO SCH (21:56)
[2023-09-24] MEDS: MEROPENEM 1 GM in DEXTROSE 5%-WATER 100 ML IVPB SCH ×3 (01:07→17:20)
[2023-09-24] MEDS ORDERED: FUROSEMIDE 40 MG/4 ML INJECTABLE VIAL IVPUSH ONE (10:41)
[2023-09-24 10:47] LABS: INR 1.25 (0.83-1.09); PROTHROMBIN TIME (PATIENT) 14.5 SEC (9.7-13.0)
[2023-09-24 10:55] LABS: BASO % 0.4 % (0-2.0); EOS % 2.3 % (0-4.5); HEMATOCRIT 28.9 % (35.4-49); HEMOGLOBIN 9.6 GM/dL (11.7-16.9); LYMPH % 8.2 % (8-40); MCH 27.9 pg (25.7-33.7); MCHC 33.1 g/dl (32.0-35.9); MEAN CELL VOLUME 84.2 fl (80-96); MEAN PLT VOLUME 6.4 fl (7.5-11.1); MONO % 6.6 % (3.8-10.2); NEUT % 82.5 % (42.8-82.8); PLATELET COUNT 703 10^3/uL (134-434); RBC 3.43 M/mm3 (4.00-5.60); RDW 16.3 % (11.9-15.9); RETICULOCYTES 2.49 % (0.5-1.5); WHITE BLOOD COUNT 12.1 K/mm3 (4.0-10.0)
[2023-09-24 11:03] LABS: POTASSIUM 4.1 mmol/L (3.5-5.1)
[2023-09-24] MEDS: hydrALAZINE HCL 50 MG TABLET (FP) PO SCH ×2 (11:10→22:06)
[2023-09-24] MEDS: ASCORBIC ACID 250 MG TABLET (FP) PO SCH (11:10)
[2023-09-24] MEDS: FOLIC ACID 1 MG TABLET (FP) PO SCH (11:11)
[2023-09-24] MEDS: amLODIPine BESYLATE 5 MG TABLET (FP) PO SCH (11:11)
[2023-09-24] MEDS: FERROUS SO4 325 MG TABLET (FP) PO SCH (11:11)
[2023-09-24] MEDS: MULTIVITAMINS (DAILY MVI) TABLET (FP) PO SCH (11:11)
[2023-09-24] MEDS: FUROSEMIDE 20 MG TABLET (FP) PO SCH (11:11)
[2023-09-24 11:34] LABS: BLOOD UREA NITROGEN 36.2 mg/dL (7-18)
[2023-09-24 11:36] LABS: TOT PROT 5.8 g/dl (6.4-8.2)
[2023-09-24 11:37] LABS: BILIRUBIN,TOTAL 0.8 mg/dL (0.2-1)
[2023-09-24 11:42] LABS: CALCIUM 8.1 mg/dL (8.5-10.1)
[2023-09-24 11:43] LABS: ALBUMIN 1.4 g/dl (3.4-5.0)
[2023-09-24] MEDS: APIXABAN 5 MG TABLET PO SCH (13:22)
[2023-09-24] MEDS: DAPTOMYCIN 700 MG in SODIUM CHLORIDE 50 ML IVPB SCH (15:18)
[2023-09-24] MEDS: ACETAMINOPHEN 325 MG TABLET (FP) PO PRN (16:20)
[2023-09-25] MEDS: MEROPENEM 1 GM in DEXTROSE 5%-WATER 100 ML IVPB SCH ×3 (02:54→18:49)
[2023-09-25] MEDS: amLODIPine BESYLATE 5 MG TABLET (FP) PO SCH (10:09)
[2023-09-25] MEDS: hydrALAZINE HCL 50 MG TABLET (FP) PO SCH ×2 (10:10→22:46)
[2023-09-25] MEDS: ASCORBIC ACID 250 MG TABLET (FP) PO SCH (10:10)
[2023-09-25] MEDS: MULTIVITAMINS (DAILY MVI) TABLET (FP) PO SCH (10:10)
[2023-09-25] MEDS: FERROUS SO4 325 MG TABLET (FP) PO SCH (10:12)
[2023-09-25] MEDS: FOLIC ACID 1 MG TABLET (FP) PO SCH (10:12)
[2023-09-25] MEDS ORDERED: MEROPENEM 1 GM VIAL (RESTRICTED TO ID) IVPB ONE (12:56)
[2023-09-25] MEDS: FUROSEMIDE 40 MG/4 ML INJECTABLE VIAL IVPUSH SCH (13:00)
[2023-09-25] MEDS: DAPTOMYCIN 700 MG in SODIUM CHLORIDE 50 ML IVPB SCH (16:30)
[2023-09-25] MEDS: ACETAMINOPHEN 325 MG TABLET (FP) PO PRN (22:46)
[2023-09-26] MEDS: MEROPENEM 1 GM in DEXTROSE 5%-WATER 100 ML IVPB SCH ×3 (01:08→18:20)
[2023-09-26 10:15] LABS: BASO % 1.1 % (0-2.0); EOS % 7.2 % (0-4.5); HEMATOCRIT 27.7 % (35.4-49); HEMOGLOBIN 9.5 GM/dL (11.7-16.9); LYMPH % 20.7 % (8-40); MCH 28.9 pg (25.7-33.7); MCHC 34.2 g/dl (32.0-35.9); MEAN CELL VOLUME 84.4 fl (80-96); MONO % 9.4 % (3.8-10.2); NEUT % 61.6 % (42.8-82.8); PLATELET COUNT 769 10^3/uL (134-434); RBC 3.29 M/mm3 (4.00-5.60); RDW 16.8 % (11.9-15.9); WHITE BLOOD COUNT 8.5 K/mm3 (4.0-10.0)
[2023-09-26 10:29] LABS: POTASSIUM 3.9 mmol/L (3.5-5.1)
[2023-09-26 10:31] LABS: ALBUMIN 1.5 g/dl (3.4-5.0); BLOOD UREA NITROGEN 32.9 mg/dL (7-18); CALCIUM 8.6 mg/dL (8.5-10.1)
[2023-09-26 10:34] LABS: CREATININE 0.9 mg/dL (0.55-1.3)
[2023-09-26 10:36] LABS: BILIRUBIN,TOTAL 0.7 mg/dL (0.2-1); TOT PROT 5.7 g/dl (6.4-8.2)
[2023-09-26] MEDS: FOLIC ACID 1 MG TABLET (FP) PO SCH (11:00)
[2023-09-26] MEDS: FERROUS SO4 325 MG TABLET (FP) PO SCH (11:00)
[2023-09-26] MEDS: ASCORBIC ACID 250 MG TABLET (FP) PO SCH (11:00)
[2023-09-26] MEDS: amLODIPine BESYLATE 5 MG TABLET (FP) PO SCH (11:00)
[2023-09-26] MEDS: hydrALAZINE HCL 50 MG TABLET (FP) PO SCH ×2 (11:00→21:47)
[2023-09-26] MEDS: MULTIVITAMINS (DAILY MVI) TABLET (FP) PO SCH (11:00)
[2023-09-26] MEDS: FUROSEMIDE 40 MG/4 ML INJECTABLE VIAL IVPUSH SCH (11:00)
[2023-09-26] MEDS: DAPTOMYCIN 700 MG in SODIUM CHLORIDE 50 ML IVPB SCH (14:19)
[2023-09-26] MEDS: AMINO ACIDS/PROTEIN HYDROLYS 30 ML LIQUID.PKT PO SCH (16:52)
[2023-09-26] MEDS: ZINC SULFATE 220 MG CAPSULE (FP) PO SCH (16:52)
[2023-09-27] MEDS: MEROPENEM 1 GM in DEXTROSE 5%-WATER 100 ML IVPB SCH ×3 (01:13→19:36)
[2023-09-27] MEDS: AMINO ACIDS/PROTEIN HYDROLYS 30 ML LIQUID.PKT PO SCH (08:51)
[2023-09-27] MEDS: FERROUS SO4 325 MG TABLET (FP) PO SCH (09:03)
[2023-09-27] MEDS: ZINC SULFATE 220 MG CAPSULE (FP) PO SCH (09:03)
[2023-09-27] MEDS: amLODIPine BESYLATE 5 MG TABLET (FP) PO SCH (09:03)
[2023-09-27] MEDS: ASCORBIC ACID 250 MG TABLET (FP) PO SCH (09:03)
[2023-09-27] MEDS: FOLIC ACID 1 MG TABLET (FP) PO SCH (09:04)
[2023-09-27] MEDS: FUROSEMIDE 40 MG/4 ML INJECTABLE VIAL IVPUSH SCH (09:04)
[2023-09-27] MEDS: hydrALAZINE HCL 50 MG TABLET (FP) PO SCH ×2 (09:04→21:25)
[2023-09-27] MEDS: MULTIVITAMINS (DAILY MVI) TABLET (FP) PO SCH (09:04)
[2023-09-27 10:08] LABS: BASO % 1.5 % (0-2.0); EOS % 6.6 % (0-4.5); HEMOGLOBIN 9.5 GM/dL (11.7-16.9); LYMPH % 16.9 % (8-40); MCH 28.1 pg (25.7-33.7); MCHC 32.7 g/dl (32.0-35.9); MEAN CELL VOLUME 85.9 fl (80-96); MEAN PLT VOLUME 6.4 fl (7.5-11.1); MONO % 7.5 % (3.8-10.2); NEUT % 67.5 % (42.8-82.8); PLATELET COUNT 783 10^3/uL (134-434); RBC 3.38 M/mm3 (4.00-5.60); RDW 16.5 % (11.9-15.9); WHITE BLOOD COUNT 10.1 K/mm3 (4.0-10.0)
[2023-09-27 10:51] LABS: BLOOD UREA NITROGEN 33.8 mg/dL (7-18)
[2023-09-27 10:56] LABS: CALCIUM 8.6 mg/dL (8.5-10.1); TOT PROT 5.7 g/dl (6.4-8.2)
[2023-09-27 10:57] LABS: ALBUMIN 1.5 g/dl (3.4-5.0)
[2023-09-27 11:00] LABS: CREATININE 0.9 mg/dL (0.55-1.3)
[2023-09-27 11:01] LABS: BILIRUBIN,TOTAL 0.6 mg/dL (0.2-1)
[2023-09-27] MEDS: DAPTOMYCIN 700 MG in SODIUM CHLORIDE 50 ML IVPB SCH (15:26)
[2023-09-27 20:58] VITALS: RESP 18
[2023-09-27] MEDS: APIXABAN 5 MG TABLET PO SCH (21:25)
[2023-09-28] MEDS: MEROPENEM 1 GM in DEXTROSE 5%-WATER 100 ML IVPB SCH ×2 (02:38→11:40)
[2023-09-28 10:29] LABS: BASO % 1.1 % (0-2.0); EOS % 7.9 % (0-4.5); HEMATOCRIT 30.9 % (35.4-49); HEMOGLOBIN 10.2 GM/dL (11.7-16.9); LYMPH % 17.1 % (8-40); MCH 28.3 pg (25.7-33.7); MEAN CELL VOLUME 85.8 fl (80-96); MEAN PLT VOLUME 6.5 fl (7.5-11.1); MONO % 7.5 % (3.8-10.2); NEUT % 66.4 % (42.8-82.8); PLATELET COUNT 280 10^3/uL (134-434); RDW 16.7 % (11.9-15.9); WHITE BLOOD COUNT 11.4 K/mm3 (4.0-10.0)
[2023-09-28 10:51] LABS: POTASSIUM 4.2 mmol/L (3.5-5.1)
[2023-09-28 11:19] LABS: ALBUMIN 1.6 g/dl (3.4-5.0); BLOOD UREA NITROGEN 30.9 mg/dL (7-18); CALCIUM 8.7 mg/dL (8.5-10.1)
[2023-09-28 11:22] LABS: CREATININE 0.9 mg/dL (0.55-1.3)
[2023-09-28] MEDS ORDERED: MEROPENEM 1 GM VIAL (RESTRICTED TO ID) IVPB ONE (11:22)
[2023-09-28 11:24] LABS: BILIRUBIN,TOTAL 0.6 mg/dL (0.2-1); TOT PROT 6.1 g/dl (6.4-8.2)
[2023-09-28] MEDS: APIXABAN 5 MG TABLET PO SCH (11:39)
[2023-09-28] MEDS: MULTIVITAMINS (DAILY MVI) TABLET (FP) PO SCH (11:39)
[2023-09-28] MEDS: FUROSEMIDE 40 MG/4 ML INJECTABLE VIAL IVPUSH SCH (11:39)
[2023-09-28] MEDS: ZINC SULFATE 220 MG CAPSULE (FP) PO SCH (11:39)
[2023-09-28] MEDS: hydrALAZINE HCL 50 MG TABLET (FP) PO SCH (11:39)
[2023-09-28] MEDS: ASCORBIC ACID 250 MG TABLET (FP) PO SCH (11:40)
[2023-09-28] MEDS: FOLIC ACID 1 MG TABLET (FP) PO SCH (11:40)
[2023-09-28] MEDS: amLODIPine BESYLATE 5 MG TABLET (FP) PO SCH (11:40)
[2023-09-28] MEDS: FERROUS SO4 325 MG TABLET (FP) PO SCH (11:40)
[2023-09-28] MEDS: AMINO ACIDS/PROTEIN HYDROLYS 30 ML LIQUID.PKT PO SCH (11:45)
[2023-09-28] MEDS: DAPTOMYCIN 700 MG in SODIUM CHLORIDE 50 ML IVPB SCH (13:52)
[2023-09-28 14:59] VITALS: BP 142/69; PULSE 73; TEMP 98.6
== END 2023-09-28 14:59 | DRG 904 ==
LOC: JER 15:36 → JERBED 23:02 → J6S 09-10 13:13
PROVIDERS: ADMIT Internal Medicine; ATTEND Internal Medicine
PROC: 0HX6XZZ Transfer Back Skin, External Approach (ICD-10-PCS; 2023-09-16)
PROC: 0WQL0ZZ Repair Lower Back, Open Approach (ICD-10-PCS; 2023-09-16)
PROC: 0HD6XZZ Extraction of Back Skin, External Approach (ICD-10-PCS; 2023-09-16)
PROC: 0WBL0ZX Excision of Lower Back, Open Approach, Diagnostic (ICD-10-PCS; 2023-09-16)
PROC: 30233N1 Transfusion of Nonautologous Red Blood Cells into Peripheral Vein, Percutaneous Approach (ICD-10-PCS; 2023-09-16)
PROC: 0JX70ZB Transfer Back Subcutaneous Tissue and Fascia with Skin and Subcutaneous Tissue, Open Approach (ICD-10-PCS; principal; 2023-09-16 11:00)
PROC: 02HV33Z Insertion of Infusion Device into Superior Vena Cava, Percutaneous Approach (ICD-10-PCS; 2023-09-28)
PROC: B548ZZA Ultrasonography of Superior Vena Cava, Guidance (ICD-10-PCS; 2023-09-28)
DX: T81.31XA Disruption of external operation (surgical) wound, not elsewhere classified, initial encounter (principal); I82.402 Acute embolism and thrombosis of unspecified deep veins of left lower extremity; N17.9 Acute kidney failure, unspecified; N39.0 Urinary tract infection, site not specified; J90 Pleural effusion, not elsewhere classified; Z16.12 Extended spectrum beta lactamase (ESBL) resistance; F03.90 Unspecified dementia, unspecified severity, without behavioral disturbance, psychotic disturbance, mood disturbance, and anxiety; I10 Essential (primary) hypertension; E11.9 Type 2 diabetes mellitus without complications; C61 Malignant neoplasm of prostate; D64.9 Anemia, unspecified; E78.5 Hyperlipidemia, unspecified; Y83.9 Surgical procedure, unspecified as the cause of abnormal reaction of the patient, or of later complication, without mention of misadventure at the time of the procedure; R45.1 Restlessness and agitation; N40.0 Benign prostatic hyperplasia without lower urinary tract symptoms; M48.061 Spinal stenosis, lumbar region without neurogenic claudication; N35.919 Unspecified urethral stricture, male, unspecified site; A49.02 Methicillin resistant Staphylococcus aureus infection, unspecified site
CPT/HCPCS: 36415; 36430; 36569; 70450-TC; 71045-TC-FY; 72131-TC; 72148-TC; 73552-TC-RT-FY; 76775-TC; 77001-TC-FY; 80048; 80053; 81003; 82272; 82550; 82962; 83010; 83540; 83550; 83615; 84484; 85025; 85027; 85045; 85610; 85651; 85730; 86140; 86850; 86900; 86901; 86922; 87040; 87070; 87075; 87086; 87186; 87205; 88305-TC; 93005; 93010; 93970-TC; 94760; 97116-GP; 97162-GP; 99285-25; C1751; G0480; J0878; J1644; P9058

== ENCOUNTER 2023-10-18 22:24 | Inpatient (IN) | payer OTHER ==
[2023-10-18 22:34] VITALS: BMI 27.3
[2023-10-18 23:11] LABS: HEMATOCRIT 30.6 % (35.4-49); HEMOGLOBIN 9.9 G/dL (11.7-16.9); MCH 27.4 pg (25.7-33.7); MCHC 32.3 g/dl (32.0-35.9); MEAN CELL VOLUME 84.9 fl (80-96); MEAN PLT VOLUME 7.1 fl (7.5-11.1); PLATELET COUNT 993.5 10^3/uL (134-434); RBC 3.61 10^6/uL (4.00-5.60); RDW 18.6 % (11.9-15.9); WHITE BLOOD COUNT 20.5 10^3/uL (4.0-10.8)
[2023-10-18 23:23] LABS: ALBUMIN 2.2 g/dl (3.4-5.0); BILIRUBIN,TOTAL 0.6 mg/dl (0.2-1); CALCIUM 8.3 mg/dl (8.5-10.1); CREATININE 1.1 mg/dl (0.6-1.3); POTASSIUM 3.5 mmol/L (3.5-5.1); TOT PROT 6.2 g/dl (6.4-8.2)
[2023-10-18 23:37] LABS: PLATELET ESTIMATE INCREASED
[2023-10-18] MEDS ORDERED: SODIUM CHLORIDE 1,000 ML IV SCH (23:45)
[2023-10-19 00:38] LABS: EPI CELLS 5 /uL (0-25.1); HYALINE CASTS 1 /uL (0-3.1); PH,URINE 5.5 (5.0-8.0); URINE APPEARANCE TURBID; URINE BACTERIA >9,000 /uL (0-1359); URINE BILIRUBIN NEGATIVE (NEGATIVE); URINE COLOR YELLOW; URINE GLUCOSE (UA) NEGATIVE (NEGATIVE); URINE KETONE NEGATIVE (NEGATIVE); URINE LEUK ESTERASE 3+ (NEGATIVE); URINE NITRITE NEGATIVE (NEGATIVE); URINE PROTEIN 4+ (NEGATIVE); URINE RBC 20 /uL (0-23.9); URINE WBC 1941 /uL (0-25.8)
[2023-10-19] MEDS ORDERED: REMDESIVIR 200 MG in SODIUM CHLORIDE 250 ML IVPB ONE (03:00)
[2023-10-19 06:47] LABS: HEMATOCRIT 24.5 % (35.4-49); HEMOGLOBIN 8.1 GM/dL (11.7-16.9); MCH 27.1 pg (25.7-33.7); MCHC 33.1 g/dl (32.0-35.9); MEAN CELL VOLUME 81.7 fl (80-96); MEAN PLT VOLUME 6.4 fl (7.5-11.1); PLATELET COUNT 959 10^3/uL (134-434); RDW 17.8 % (11.9-15.9); WHITE BLOOD COUNT 16.9 K/mm3 (4.0-10.0)
[2023-10-19 06:56] LABS: INR 1.67 (0.83-1.09); PROTHROMBIN TIME (PATIENT) 19.3 SEC (9.7-13.0)
[2023-10-19 06:59] LABS: ACTIVATED PTT 30.2 SECONDS (25.2-36.5)
[2023-10-19 07:28] LABS: POTASSIUM 3.4 mmol/L (3.5-5.1)
[2023-10-19 07:29] LABS: CALCIUM 7.4 mg/dL (8.5-10.1)
[2023-10-19 07:30] LABS: BLOOD UREA NITROGEN 40.7 mg/dL (7-18); MAGNESIUM 1.7 mg/dL (1.8-2.4)
[2023-10-19 07:33] LABS: CREATININE 1.1 mg/dL (0.55-1.3); PHOSPHOROUS 2.8 mg/dL (2.5-4.9)
[2023-10-19] MEDS ORDERED: SODIUM CHLORIDE 1,000 ML IV SCH (08:21)
[2023-10-19] MEDS: DEXAMETHASONE SOD PHOSPHATE 10 MG/1 ML VIAL IVPUSH SCH (09:53)
[2023-10-19] MEDS: ASPIRIN COATED 81 MG TABLET.EC PO SCH (09:54)
[2023-10-19] MEDS: APIXABAN 5 MG TABLET PO SCH ×2 (09:54→22:55)
[2023-10-19] MEDS: FOLIC ACID 1 MG TABLET (FP) PO SCH (09:55)
[2023-10-19] MEDS: PANTOPRAZOLE SODIUM 40 MG VIAL IVPUSH SCH (09:55)
[2023-10-19] MEDS ORDERED: ALBUTEROL SO4 2.5/IPRATROPIUM 0.5 INH SOL 3 ML VIAL.NEB. NEB SCH (12:00)
[2023-10-19] MEDS ORDERED: MAGNESIUM SULF 50% (8.12 MEQ/2 ML-1 GM VIAL) IVPB ONE (15:45)
[2023-10-19] MEDS ORDERED: OSELTAMIVIR PHOSPHATE 75 MG CAPSULE PO ONE (16:09)
[2023-10-19] MEDS: KCL 10 MEQ IVPB 10 MEQ/100 ML INFUS.BAG IVPB SCH ×2 (16:42→19:08)
[2023-10-19] MEDS ORDERED: DAPTOMYCIN 700 MG in SODIUM CHLORIDE 50 ML IVPB SCH (18:00)
[2023-10-19] MEDS ORDERED: ATORVASTATIN CA 40 MG TABLET (FP) PO SCH (22:00)
[2023-10-19] MEDS ORDERED: OSELTAMIVIR PHOSPHATE 75 MG CAPSULE PO SCH (22:00)
[2023-10-19] MEDS: DOCUSATE SODIUM 100 MG CAPSULE (FP) PO SCH (22:55)
[2023-10-20 07:49] LABS: BASO % 0.3 % (0-2.0); HEMATOCRIT 23.8 % (35.4-49); HEMOGLOBIN 7.8 GM/dL (11.7-16.9); LYMPH % 5.4 % (8-40); MCH 27.2 pg (25.7-33.7); MCHC 32.8 g/dl (32.0-35.9); MEAN CELL VOLUME 82.8 fl (80-96); MEAN PLT VOLUME 6.7 fl (7.5-11.1); MONO % 4.5 % (3.8-10.2); NEUT % 89.8 % (42.8-82.8); PLATELET COUNT 970 10^3/uL (134-434); RBC 2.87 M/mm3 (4.00-5.60); RDW 17.6 % (11.9-15.9); WHITE BLOOD COUNT 16.1 K/mm3 (4.0-10.0)
[2023-10-20 07:57] LABS: BLOOD UREA NITROGEN 38.2 mg/dL (7-18); CALCIUM 7.8 mg/dL (8.5-10.1); MAGNESIUM 2.1 mg/dL (1.8-2.4)
[2023-10-20 08:00] LABS: CREATININE 1.1 mg/dL (0.55-1.3); PHOSPHOROUS 3.7 mg/dL (2.5-4.9)
[2023-10-20 08:01] LABS: ALBUMIN 1.2 g/dl (3.4-5.0)
[2023-10-20 08:02] LABS: BILIRUBIN,TOTAL 0.2 mg/dL (0.2-1); TOT PROT 5.7 g/dl (6.4-8.2)
[2023-10-20] MEDS ORDERED: OSELTAMIVIR PHOSPHATE 30 MG CAPSULE PO SCH (10:00)
[2023-10-20] MEDS: DEXAMETHASONE SOD PHOSPHATE 10 MG/1 ML VIAL IVPUSH SCH (10:42)
[2023-10-20] MEDS: ASPIRIN COATED 81 MG TABLET.EC PO SCH (10:43)
[2023-10-20] MEDS: PANTOPRAZOLE SODIUM 40 MG VIAL IVPUSH SCH (10:43)
[2023-10-20] MEDS: APIXABAN 5 MG TABLET PO SCH ×2 (10:43→22:30)
[2023-10-20] MEDS: FOLIC ACID 1 MG TABLET (FP) PO SCH (10:43)
[2023-10-20] MEDS: REMDESIVIR 100 MG in SODIUM CHLORIDE 250 ML IVPB SCH (14:06)
[2023-10-20] MEDS: AZTREONAM 1 GM in DEXTROSE 5%-WATER - 50 ML IVPB SCH (17:41)
[2023-10-20] MEDS: DAPTOMYCIN 700 MG in SODIUM CHLORIDE 50 ML IVPB SCH (20:21)
[2023-10-20] MEDS: DOCUSATE SODIUM 100 MG CAPSULE (FP) PO SCH (22:30)
[2023-10-20] MEDS: OSELTAMIVIR PHOSPHATE 75 MG CAPSULE PO SCH (22:30)
[2023-10-21] MEDS: AZTREONAM 1 GM in DEXTROSE 5%-WATER - 50 ML IVPB SCH ×2 (02:20→09:32)
[2023-10-21] MEDS: DEXAMETHASONE SOD PHOSPHATE 10 MG/1 ML VIAL IVPUSH SCH (09:33)
[2023-10-21] MEDS: PANTOPRAZOLE SODIUM 40 MG VIAL IVPUSH SCH (09:33)
[2023-10-21] MEDS: ASPIRIN COATED 81 MG TABLET.EC PO SCH (09:35)
[2023-10-21] MEDS: APIXABAN 5 MG TABLET PO SCH ×2 (09:35→21:58)
[2023-10-21] MEDS: FOLIC ACID 1 MG TABLET (FP) PO SCH (09:35)
[2023-10-21] MEDS: OSELTAMIVIR PHOSPHATE 75 MG CAPSULE PO SCH ×2 (09:36→21:58)
[2023-10-21] MEDS: REMDESIVIR 100 MG in SODIUM CHLORIDE 250 ML IVPB SCH (13:06)
[2023-10-21] MEDS: MEROPENEM 1 GM in DEXTROSE 5%-WATER - 50 ML IVPB SCH ×2 (16:50→23:47)
[2023-10-21] MEDS: DAPTOMYCIN 700 MG in SODIUM CHLORIDE 50 ML IVPB SCH (20:58)
[2023-10-21] MEDS: DOCUSATE SODIUM 100 MG CAPSULE (FP) PO SCH (21:58)
[2023-10-21] MEDS ORDERED: NITROFURANTOIN MONOHYD/M-CRYST 100 MG CAPSULE PO SCH (22:00)
[2023-10-22] MEDS: MULTIVITAMINS (DAILY MVI) TABLET (FP) PO SCH (09:15)
[2023-10-22] MEDS: OSELTAMIVIR PHOSPHATE 75 MG CAPSULE PO SCH ×2 (09:15→22:44)
[2023-10-22] MEDS: FOLIC ACID 1 MG TABLET (FP) PO SCH (09:15)
[2023-10-22] MEDS: ZINC SULFATE 220 MG CAPSULE (FP) PO SCH (09:16)
[2023-10-22] MEDS: ASPIRIN COATED 81 MG TABLET.EC PO SCH (09:16)
[2023-10-22] MEDS: AMINO ACIDS/PROTEIN HYDROLYS 30 ML LIQUID.PKT PO SCH (09:16)
[2023-10-22] MEDS: MEROPENEM 1 GM in DEXTROSE 5%-WATER - 50 ML IVPB SCH ×2 (09:16→15:39)
[2023-10-22] MEDS: APIXABAN 5 MG TABLET PO SCH ×2 (09:16→22:44)
[2023-10-22] MEDS: DEXAMETHASONE SOD PHOSPHATE 10 MG/1 ML VIAL IVPUSH SCH (09:17)
[2023-10-22] MEDS: ASCORBIC ACID 250 MG TABLET (FP) PO SCH (09:17)
[2023-10-22] MEDS: PANTOPRAZOLE SODIUM 40 MG VIAL IVPUSH SCH (09:20)
[2023-10-22] MEDS: REMDESIVIR 100 MG in SODIUM CHLORIDE 250 ML IVPB SCH (15:39)
[2023-10-22] MEDS: NYSTATIN 500,000 UNITS/5 ML SUSPENSION PO SCH ×2 (17:24→23:27)
[2023-10-22] MEDS: DOCUSATE SODIUM 100 MG CAPSULE (FP) PO SCH (22:44)
[2023-10-22] MEDS: DAPTOMYCIN 700 MG in SODIUM CHLORIDE 50 ML IVPB SCH (23:27)
[2023-10-23] MEDS: MEROPENEM 1 GM in DEXTROSE 5%-WATER - 50 ML IVPB SCH ×3 (05:01→17:04)
[2023-10-23] MEDS: NYSTATIN 500,000 UNITS/5 ML SUSPENSION PO SCH ×3 (05:27→17:08)
[2023-10-23 07:52] LABS: BASO % 0.1 % (0-2.0); EOS % 0.1 % (0-4.5); HEMATOCRIT 29.7 % (35.4-49); HEMOGLOBIN 9.3 GM/dL (11.7-16.9); LYMPH % 13.3 % (8-40); MCH 25.9 pg (25.7-33.7); MCHC 31.4 g/dl (32.0-35.9); MEAN CELL VOLUME 82.4 fl (80-96); MEAN PLT VOLUME 6.6 fl (7.5-11.1); MONO % 7.6 % (3.8-10.2); NEUT % 78.9 % (42.8-82.8); RDW 17.9 % (11.9-15.9); WHITE BLOOD COUNT 18.2 K/mm3 (4.0-10.0)
[2023-10-23 07:53] LABS: PLATELET COUNT 1214 10^3/uL (134-434)
[2023-10-23 08:08] LABS: POTASSIUM 4.1 mmol/L (3.5-5.1)
[2023-10-23 08:11] LABS: BLOOD UREA NITROGEN 37.3 mg/dL (7-18)
[2023-10-23 08:14] LABS: CREATININE 0.9 mg/dL (0.55-1.3)
[2023-10-23 08:16] LABS: BILIRUBIN,TOTAL 0.4 mg/dL (0.2-1); TOT PROT 6.8 g/dl (6.4-8.2)
[2023-10-23 08:42] LABS: ALBUMIN 1.8 g/dl (3.4-5.0); CALCIUM 9.1 mg/dL (8.5-10.1)
[2023-10-23] MEDS: AMINO ACIDS/PROTEIN HYDROLYS 30 ML LIQUID.PKT PO SCH (10:16)
[2023-10-23] MEDS: OSELTAMIVIR PHOSPHATE 75 MG CAPSULE PO SCH ×2 (10:17→22:17)
[2023-10-23] MEDS: ZINC SULFATE 220 MG CAPSULE (FP) PO SCH (10:17)
[2023-10-23] MEDS: PANTOPRAZOLE 40 MG TABLET PO SCH (10:17)
[2023-10-23] MEDS: ASPIRIN COATED 81 MG TABLET.EC PO SCH (10:18)
[2023-10-23] MEDS: APIXABAN 5 MG TABLET PO SCH ×2 (10:18→22:16)
[2023-10-23] MEDS: FOLIC ACID 1 MG TABLET (FP) PO SCH (10:18)
[2023-10-23] MEDS: MULTIVITAMINS (DAILY MVI) TABLET (FP) PO SCH (10:18)
[2023-10-23] MEDS: DEXAMETHASONE SOD PHOSPHATE 10 MG/1 ML VIAL IVPUSH SCH (10:18)
[2023-10-23] MEDS: ASCORBIC ACID 250 MG TABLET (FP) PO SCH (10:18)
[2023-10-23] MEDS: REMDESIVIR 100 MG in SODIUM CHLORIDE 250 ML IVPB SCH (14:34)
[2023-10-23] MEDS: DOCUSATE SODIUM 100 MG CAPSULE (FP) PO SCH (22:17)
[2023-10-23] MEDS: DAPTOMYCIN 700 MG in SODIUM CHLORIDE 50 ML IVPB SCH (23:00)
[2023-10-24] MEDS: NYSTATIN 500,000 UNITS/5 ML SUSPENSION PO SCH ×4 (00:11→17:22)
[2023-10-24] MEDS: MEROPENEM 1 GM in DEXTROSE 5%-WATER - 50 ML IVPB SCH ×3 (00:11→16:40)
[2023-10-24] MEDS: AMINO ACIDS/PROTEIN HYDROLYS 30 ML LIQUID.PKT PO SCH (09:28)
[2023-10-24] MEDS: PANTOPRAZOLE 40 MG TABLET PO SCH (09:29)
[2023-10-24] MEDS: DEXAMETHASONE SOD PHOSPHATE 10 MG/1 ML VIAL IVPUSH SCH (09:29)
[2023-10-24] MEDS: ASPIRIN COATED 81 MG TABLET.EC PO SCH (09:29)
[2023-10-24] MEDS: FOLIC ACID 1 MG TABLET (FP) PO SCH (09:29)
[2023-10-24] MEDS: MULTIVITAMINS (DAILY MVI) TABLET (FP) PO SCH (09:29)
[2023-10-24] MEDS: ASCORBIC ACID 250 MG TABLET (FP) PO SCH (09:29)
[2023-10-24] MEDS: APIXABAN 5 MG TABLET PO SCH ×2 (09:29→22:05)
[2023-10-24] MEDS: ZINC SULFATE 220 MG CAPSULE (FP) PO SCH (09:29)
[2023-10-24] MEDS: OSELTAMIVIR PHOSPHATE 75 MG CAPSULE PO SCH (09:30)
[2023-10-24] MEDS: DAPTOMYCIN 700 MG in SODIUM CHLORIDE 50 ML IVPB SCH (19:47)
[2023-10-24] MEDS: DOCUSATE SODIUM 100 MG CAPSULE (FP) PO SCH (22:05)
[2023-10-25] MEDS: MEROPENEM 1 GM in DEXTROSE 5%-WATER - 50 ML IVPB SCH ×3 (00:27→15:48)
[2023-10-25] MEDS: NYSTATIN 500,000 UNITS/5 ML SUSPENSION PO SCH ×4 (00:28→17:29)
[2023-10-25] MEDS ORDERED: amLODIPine BESYLATE 5 MG TABLET (FP) PO ONE (05:23)
[2023-10-25 07:21] LABS: HEMATOCRIT 24.7 % (35.4-49); HEMOGLOBIN 7.9 GM/dL (11.7-16.9); MCH 26.3 pg (25.7-33.7); MCHC 32.1 g/dl (32.0-35.9); MEAN CELL VOLUME 81.9 fl (80-96); MEAN PLT VOLUME 6.9 fl (7.5-11.1); PLATELET COUNT 857 10^3/uL (134-434); RBC 3.02 M/mm3 (4.00-5.60); RDW 18.7 % (11.9-15.9); WHITE BLOOD COUNT 12.6 K/mm3 (4.0-10.0)
[2023-10-25 07:35] LABS: POTASSIUM 4.4 mmol/L (3.5-5.1)
[2023-10-25 07:51] LABS: BLOOD UREA NITROGEN 38.6 mg/dL (7-18); CALCIUM 8.3 mg/dL (8.5-10.1)
[2023-10-25 07:55] LABS: CREATININE 0.9 mg/dL (0.55-1.3)
[2023-10-25] MEDS: AMINO ACIDS/PROTEIN HYDROLYS 30 ML LIQUID.PKT PO SCH (08:19)
[2023-10-25] MEDS: PANTOPRAZOLE 40 MG TABLET PO SCH (09:06)
[2023-10-25] MEDS: MULTIVITAMINS (DAILY MVI) TABLET (FP) PO SCH (09:06)
[2023-10-25] MEDS: ASPIRIN COATED 81 MG TABLET.EC PO SCH (09:06)
[2023-10-25] MEDS: DEXAMETHASONE SOD PHOSPHATE 10 MG/1 ML VIAL IVPUSH SCH (09:06)
[2023-10-25] MEDS: FOLIC ACID 1 MG TABLET (FP) PO SCH (09:06)
[2023-10-25] MEDS: APIXABAN 5 MG TABLET PO SCH ×2 (09:07→22:30)
[2023-10-25] MEDS: ZINC SULFATE 220 MG CAPSULE (FP) PO SCH (09:07)
[2023-10-25 09:42] LABS: ANISOCYTOSIS 0; MACROCYTOSIS 0
[2023-10-25] MEDS: ASCORBIC ACID 250 MG TABLET (FP) PO SCH (09:44)
[2023-10-25] MEDS: DOCUSATE SODIUM 100 MG CAPSULE (FP) PO SCH (22:30)
[2023-10-25] MEDS: DAPTOMYCIN 700 MG in SODIUM CHLORIDE 50 ML IVPB SCH (23:23)
[2023-10-26] MEDS: MEROPENEM 1 GM in DEXTROSE 5%-WATER - 50 ML IVPB SCH ×3 (01:15→16:23)
[2023-10-26] MEDS: NYSTATIN 500,000 UNITS/5 ML SUSPENSION PO SCH ×5 (01:18→23:29)
[2023-10-26] MEDS: AMINO ACIDS/PROTEIN HYDROLYS 30 ML LIQUID.PKT PO SCH (09:59)
[2023-10-26] MEDS: DEXAMETHASONE SOD PHOSPHATE 10 MG/1 ML VIAL IVPUSH SCH (09:59)
[2023-10-26] MEDS: FUROSEMIDE 40 MG/4 ML INJECTABLE VIAL IVPUSH SCH (10:00)
[2023-10-26] MEDS: APIXABAN 5 MG TABLET PO SCH ×2 (10:00→22:19)
[2023-10-26] MEDS: MULTIVITAMINS (DAILY MVI) TABLET (FP) PO SCH (10:00)
[2023-10-26] MEDS: FOLIC ACID 1 MG TABLET (FP) PO SCH (10:00)
[2023-10-26] MEDS: ASCORBIC ACID 250 MG TABLET (FP) PO SCH (10:00)
[2023-10-26] MEDS: PANTOPRAZOLE 40 MG TABLET PO SCH (10:00)
[2023-10-26] MEDS: ASPIRIN COATED 81 MG TABLET.EC PO SCH (10:00)
[2023-10-26] MEDS: ZINC SULFATE 220 MG CAPSULE (FP) PO SCH (10:00)
[2023-10-26 11:49] LABS: HEMATOCRIT 28.2 % (35.4-49); HEMOGLOBIN 9.2 GM/dL (11.7-16.9); MCH 26.7 pg (25.7-33.7); MCHC 32.5 g/dl (32.0-35.9); MEAN PLT VOLUME 6.5 fl (7.5-11.1); PLATELET COUNT 881 10^3/uL (134-434); RBC 3.44 M/mm3 (4.00-5.60); RDW 18.5 % (11.9-15.9); WHITE BLOOD COUNT 10.5 K/mm3 (4.0-10.0)
[2023-10-26 12:09] LABS: POTASSIUM 4.1 mmol/L (3.5-5.1)
[2023-10-26 12:17] LABS: ALBUMIN 1.6 g/dl (3.4-5.0); BLOOD UREA NITROGEN 35.3 mg/dL (7-18); CALCIUM 8.5 mg/dL (8.5-10.1)
[2023-10-26 12:19] LABS: ANISOCYTOSIS 2+; MACROCYTOSIS 0
[2023-10-26 12:21] LABS: BILIRUBIN,TOTAL 0.4 mg/dL (0.2-1); CREATININE 0.9 mg/dL (0.55-1.3); TOT PROT 5.7 g/dl (6.4-8.2)
[2023-10-26] MEDS ORDERED: MAG HYDROX/AL HYDROX/SIMETH 30 ML UNIT-DOSE CUP PO ONE (14:45)
[2023-10-26] MEDS: DOCUSATE SODIUM 100 MG CAPSULE (FP) PO SCH (22:19)
[2023-10-26] MEDS: DAPTOMYCIN 700 MG in SODIUM CHLORIDE 50 ML IVPB SCH (23:29)
[2023-10-26] MEDS ORDERED: ACETAMINOPHEN 325 MG TABLET (FP) PO ONE (23:46)
[2023-10-27] MEDS: MEROPENEM 1 GM in DEXTROSE 5%-WATER - 50 ML IVPB SCH ×3 (02:27→17:04)
[2023-10-27] MEDS: NYSTATIN 500,000 UNITS/5 ML SUSPENSION PO SCH ×3 (06:01→17:04)
[2023-10-27 07:25] LABS: BASO % 0.3 % (0-2.0); EOS % 1.2 % (0-4.5); HEMOGLOBIN 7.7 GM/dL (11.7-16.9); LYMPH % 16.9 % (8-40); MCH 26.5 pg (25.7-33.7); MCHC 32.2 g/dl (32.0-35.9); MEAN CELL VOLUME 82.3 fl (80-96); MEAN PLT VOLUME 6.8 fl (7.5-11.1); MONO % 11.6 % (3.8-10.2); PLATELET COUNT 709 10^3/uL (134-434); RBC 2.92 M/mm3 (4.00-5.60); RDW 18.5 % (11.9-15.9)
[2023-10-27 07:40] LABS: POTASSIUM 4.4 mmol/L (3.5-5.1)
[2023-10-27 07:53] LABS: CALCIUM 7.8 mg/dL (8.5-10.1)
[2023-10-27 07:54] LABS: ALBUMIN 1.4 g/dl (3.4-5.0); BLOOD UREA NITROGEN 34.8 mg/dL (7-18)
[2023-10-27 07:57] LABS: CREATININE 0.9 mg/dL (0.55-1.3)
[2023-10-27 07:59] LABS: BILIRUBIN,TOTAL 0.4 mg/dL (0.2-1); TOT PROT 4.9 g/dl (6.4-8.2)
[2023-10-27] MEDS: AMINO ACIDS/PROTEIN HYDROLYS 30 ML LIQUID.PKT PO SCH (08:04)
[2023-10-27] MEDS: ASPIRIN COATED 81 MG TABLET.EC PO SCH (10:29)
[2023-10-27] MEDS: ASCORBIC ACID 250 MG TABLET (FP) PO SCH (10:29)
[2023-10-27] MEDS: PANTOPRAZOLE 40 MG TABLET PO SCH (10:29)
[2023-10-27] MEDS: MULTIVITAMINS (DAILY MVI) TABLET (FP) PO SCH (10:29)
[2023-10-27] MEDS: APIXABAN 5 MG TABLET PO SCH ×2 (10:29→22:16)
[2023-10-27] MEDS: ZINC SULFATE 220 MG CAPSULE (FP) PO SCH (10:29)
[2023-10-27] MEDS: FOLIC ACID 1 MG TABLET (FP) PO SCH (10:30)
[2023-10-27] MEDS: FUROSEMIDE 40 MG/4 ML INJECTABLE VIAL IVPUSH SCH (10:30)
[2023-10-27] MEDS: DAPTOMYCIN 700 MG in SODIUM CHLORIDE 50 ML IVPB SCH (20:46)
[2023-10-27] MEDS: DOCUSATE SODIUM 100 MG CAPSULE (FP) PO SCH (22:16)
[2023-10-28] MEDS: NYSTATIN 500,000 UNITS/5 ML SUSPENSION PO SCH ×5 (00:05→23:05)
[2023-10-28] MEDS: MEROPENEM 1 GM in DEXTROSE 5%-WATER - 50 ML IVPB SCH ×4 (00:05→23:29)
[2023-10-28] MEDS: AMINO ACIDS/PROTEIN HYDROLYS 30 ML LIQUID.PKT PO SCH (08:07)
[2023-10-28] MEDS: FOLIC ACID 1 MG TABLET (FP) PO SCH (09:38)
[2023-10-28] MEDS: APIXABAN 5 MG TABLET PO SCH ×2 (09:38→21:37)
[2023-10-28] MEDS: PANTOPRAZOLE 40 MG TABLET PO SCH (09:38)
[2023-10-28] MEDS: ZINC SULFATE 220 MG CAPSULE (FP) PO SCH (09:38)
[2023-10-28] MEDS: FUROSEMIDE 40 MG/4 ML INJECTABLE VIAL IVPUSH SCH (09:38)
[2023-10-28] MEDS: ASCORBIC ACID 250 MG TABLET (FP) PO SCH (09:38)
[2023-10-28] MEDS: MULTIVITAMINS (DAILY MVI) TABLET (FP) PO SCH (09:38)
[2023-10-28] MEDS: ASPIRIN COATED 81 MG TABLET.EC PO SCH (09:39)
[2023-10-28] MEDS: DOCUSATE SODIUM 100 MG CAPSULE (FP) PO SCH (21:37)
[2023-10-28] MEDS: DAPTOMYCIN 700 MG in SODIUM CHLORIDE 50 ML IVPB SCH (21:39)
[2023-10-29] MEDS: NYSTATIN 500,000 UNITS/5 ML SUSPENSION PO SCH ×4 (05:38→23:57)
[2023-10-29] MEDS: AMINO ACIDS/PROTEIN HYDROLYS 30 ML LIQUID.PKT PO SCH (08:11)
[2023-10-29] MEDS: MEROPENEM 1 GM in DEXTROSE 5%-WATER - 50 ML IVPB SCH ×3 (08:11→23:57)
[2023-10-29] MEDS: FUROSEMIDE 40 MG/4 ML INJECTABLE VIAL IVPUSH SCH (10:36)
[2023-10-29] MEDS: PANTOPRAZOLE 40 MG TABLET PO SCH (10:36)
[2023-10-29] MEDS: ASPIRIN COATED 81 MG TABLET.EC PO SCH (10:36)
[2023-10-29] MEDS: FOLIC ACID 1 MG TABLET (FP) PO SCH (10:36)
[2023-10-29] MEDS: MULTIVITAMINS (DAILY MVI) TABLET (FP) PO SCH (10:36)
[2023-10-29] MEDS: ZINC SULFATE 220 MG CAPSULE (FP) PO SCH (10:36)
[2023-10-29] MEDS: APIXABAN 5 MG TABLET PO SCH ×3 (10:36→21:09)
[2023-10-29] MEDS: ASCORBIC ACID 250 MG TABLET (FP) PO SCH (10:36)
[2023-10-29 14:16] LABS: BASO % 0.4 % (0-2.0); EOS % 2.8 % (0-4.5); HEMATOCRIT 28.3 % (35.4-49); HEMOGLOBIN 8.9 GM/dL (11.7-16.9); LYMPH % 10.4 % (8-40); MCH 26.1 pg (25.7-33.7); MCHC 31.6 g/dl (32.0-35.9); MEAN CELL VOLUME 82.8 fl (80-96); MEAN PLT VOLUME 6.7 fl (7.5-11.1); MONO % 7.9 % (3.8-10.2); NEUT % 78.5 % (42.8-82.8); PLATELET COUNT 723 10^3/uL (134-434); RBC 3.41 M/mm3 (4.00-5.60); RDW 18.8 % (11.9-15.9); WHITE BLOOD COUNT 15.9 K/mm3 (4.0-10.0)
[2023-10-29 14:36] LABS: POTASSIUM 4.2 mmol/L (3.5-5.1)
[2023-10-29 14:38] LABS: CALCIUM 7.9 mg/dL (8.5-10.1)
[2023-10-29 14:39] LABS: ALBUMIN 1.6 g/dl (3.4-5.0)
[2023-10-29 14:42] LABS: CREATININE 0.9 mg/dL (0.55-1.3)
[2023-10-29 14:44] LABS: BILIRUBIN,TOTAL 0.3 mg/dL (0.2-1); TOT PROT 5.7 g/dl (6.4-8.2)
[2023-10-29] MEDS: DOCUSATE SODIUM 100 MG CAPSULE (FP) PO SCH ×2 (20:52→21:09)
[2023-10-29] MEDS: DAPTOMYCIN 700 MG in SODIUM CHLORIDE 50 ML IVPB SCH (20:52)
[2023-10-30] MEDS: NYSTATIN 500,000 UNITS/5 ML SUSPENSION PO SCH ×3 (05:30→17:38)
[2023-10-30] MEDS: MEROPENEM 1 GM in DEXTROSE 5%-WATER - 50 ML IVPB SCH ×2 (08:02→16:50)
[2023-10-30] MEDS: AMINO ACIDS/PROTEIN HYDROLYS 30 ML LIQUID.PKT PO SCH (08:02)
[2023-10-30 10:51] LABS: BASO % 0.6 % (0-2.0); EOS % 2.5 % (0-4.5); HEMATOCRIT 27.6 % (35.4-49); HEMOGLOBIN 8.8 GM/dL (11.7-16.9); LYMPH % 10.6 % (8-40); MCH 26.5 pg (25.7-33.7); MCHC 32.1 g/dl (32.0-35.9); MEAN CELL VOLUME 82.5 fl (80-96); MEAN PLT VOLUME 6.9 fl (7.5-11.1); MONO % 5.9 % (3.8-10.2); NEUT % 80.4 % (42.8-82.8); PLATELET COUNT 677 10^3/uL (134-434); RBC 3.34 M/mm3 (4.00-5.60); RDW 19.6 % (11.9-15.9); WHITE BLOOD COUNT 14.9 K/mm3 (4.0-10.0)
[2023-10-30] MEDS: ASPIRIN COATED 81 MG TABLET.EC PO SCH (10:56)
[2023-10-30] MEDS: PANTOPRAZOLE 40 MG TABLET PO SCH (10:56)
[2023-10-30] MEDS: MULTIVITAMINS (DAILY MVI) TABLET (FP) PO SCH (10:57)
[2023-10-30] MEDS: FUROSEMIDE 40 MG/4 ML INJECTABLE VIAL IVPUSH SCH (10:57)
[2023-10-30] MEDS: ZINC SULFATE 220 MG CAPSULE (FP) PO SCH (10:57)
[2023-10-30] MEDS: APIXABAN 5 MG TABLET PO SCH ×2 (10:57→22:24)
[2023-10-30] MEDS: FOLIC ACID 1 MG TABLET (FP) PO SCH (10:57)
[2023-10-30] MEDS: ASCORBIC ACID 250 MG TABLET (FP) PO SCH (10:57)
[2023-10-30 11:15] LABS: POTASSIUM 4.1 mmol/L (3.5-5.1)
[2023-10-30 11:34] LABS: ALBUMIN 1.5 g/dl (3.4-5.0); BLOOD UREA NITROGEN 27.4 mg/dL (7-18); CALCIUM 8.1 mg/dL (8.5-10.1)
[2023-10-30 11:38] LABS: CREATININE 0.8 mg/dL (0.55-1.3)
[2023-10-30 11:39] LABS: BILIRUBIN,TOTAL 0.4 mg/dL (0.2-1); TOT PROT 5.6 g/dl (6.4-8.2)
[2023-10-30] MEDS: DAPTOMYCIN 700 MG in SODIUM CHLORIDE 50 ML IVPB SCH (22:23)
[2023-10-30] MEDS: DOCUSATE SODIUM 100 MG CAPSULE (FP) PO SCH (22:23)
[2023-10-31] MEDS: MEROPENEM 1 GM in DEXTROSE 5%-WATER - 50 ML IVPB SCH ×3 (00:08→15:41)
[2023-10-31] MEDS: NYSTATIN 500,000 UNITS/5 ML SUSPENSION PO SCH ×4 (00:08→17:44)
[2023-10-31] MEDS: AMINO ACIDS/PROTEIN HYDROLYS 30 ML LIQUID.PKT PO SCH (09:26)
[2023-10-31] MEDS: APIXABAN 5 MG TABLET PO SCH ×2 (09:27→22:40)
[2023-10-31] MEDS: ASPIRIN COATED 81 MG TABLET.EC PO SCH (09:27)
[2023-10-31] MEDS: ZINC SULFATE 220 MG CAPSULE (FP) PO SCH (09:27)
[2023-10-31] MEDS: FUROSEMIDE 40 MG/4 ML INJECTABLE VIAL IVPUSH SCH (09:27)
[2023-10-31] MEDS: FOLIC ACID 1 MG TABLET (FP) PO SCH (09:27)
[2023-10-31] MEDS: MULTIVITAMINS (DAILY MVI) TABLET (FP) PO SCH (09:28)
[2023-10-31] MEDS: PANTOPRAZOLE 40 MG TABLET PO SCH (09:28)
[2023-10-31] MEDS: ASCORBIC ACID 250 MG TABLET (FP) PO SCH (09:28)
[2023-10-31] MEDS: DAPTOMYCIN 700 MG in SODIUM CHLORIDE 50 ML IVPB SCH (22:37)
[2023-10-31] MEDS: DOCUSATE SODIUM 100 MG CAPSULE (FP) PO SCH (22:40)
[2023-11-01] MEDS: MEROPENEM 1 GM in DEXTROSE 5%-WATER - 50 ML IVPB SCH ×3 (00:03→15:33)
[2023-11-01] MEDS: NYSTATIN 500,000 UNITS/5 ML SUSPENSION PO SCH ×4 (00:03→18:02)
[2023-11-01] MEDS: AMINO ACIDS/PROTEIN HYDROLYS 30 ML LIQUID.PKT PO SCH (08:10)
[2023-11-01] MEDS: ASPIRIN COATED 81 MG TABLET.EC PO SCH (10:48)
[2023-11-01] MEDS: PANTOPRAZOLE 40 MG TABLET PO SCH (10:48)
[2023-11-01] MEDS: MULTIVITAMINS (DAILY MVI) TABLET (FP) PO SCH (10:48)
[2023-11-01] MEDS: FOLIC ACID 1 MG TABLET (FP) PO SCH (10:48)
[2023-11-01] MEDS: ZINC SULFATE 220 MG CAPSULE (FP) PO SCH (10:48)
[2023-11-01] MEDS: ASCORBIC ACID 250 MG TABLET (FP) PO SCH (10:48)
[2023-11-01] MEDS: APIXABAN 5 MG TABLET PO SCH ×2 (10:48→22:09)
[2023-11-01] MEDS: FUROSEMIDE 40 MG/4 ML INJECTABLE VIAL IVPUSH SCH (10:48)
[2023-11-01] MEDS: DAPTOMYCIN 700 MG in SODIUM CHLORIDE 50 ML IVPB SCH (20:09)
[2023-11-01] MEDS: DOCUSATE SODIUM 100 MG CAPSULE (FP) PO SCH (22:09)
[2023-11-02] MEDS: MEROPENEM 1 GM in DEXTROSE 5%-WATER - 50 ML IVPB SCH ×2 (01:03→09:22)
[2023-11-02] MEDS: NYSTATIN 500,000 UNITS/5 ML SUSPENSION PO SCH ×4 (01:04→18:27)
[2023-11-02 07:52] LABS: BASO % 1.1 % (0-2.0); EOS % 4.5 % (0-4.5); HEMATOCRIT 23.7 % (35.4-49); HEMOGLOBIN 7.8 GM/dL (11.7-16.9); LYMPH % 17.7 % (8-40); MCHC 32.7 g/dl (32.0-35.9); MEAN CELL VOLUME 82.6 fl (80-96); MEAN PLT VOLUME 6.6 fl (7.5-11.1); MONO % 10.4 % (3.8-10.2); NEUT % 66.3 % (42.8-82.8); PLATELET COUNT 577 10^3/uL (134-434); RBC 2.87 M/mm3 (4.00-5.60); RDW 19.5 % (11.9-15.9); WHITE BLOOD COUNT 9.4 K/mm3 (4.0-10.0)
[2023-11-02 08:09] LABS: POTASSIUM 4.1 mmol/L (3.5-5.1)
[2023-11-02] MEDS: AMINO ACIDS/PROTEIN HYDROLYS 30 ML LIQUID.PKT PO SCH (08:16)
[2023-11-02 08:29] LABS: BLOOD UREA NITROGEN 24.1 mg/dL (7-18)
[2023-11-02 08:30] LABS: ALBUMIN 1.3 g/dl (3.4-5.0)
[2023-11-02 08:33] LABS: CREATININE 0.9 mg/dL (0.55-1.3)
[2023-11-02 08:34] LABS: BILIRUBIN,TOTAL 0.4 mg/dL (0.2-1); TOT PROT 5.2 g/dl (6.4-8.2)
[2023-11-02] MEDS: PANTOPRAZOLE 40 MG TABLET PO SCH (09:23)
[2023-11-02] MEDS: ZINC SULFATE 220 MG CAPSULE (FP) PO SCH (09:23)
[2023-11-02] MEDS: FUROSEMIDE 40 MG/4 ML INJECTABLE VIAL IVPUSH SCH (09:23)
[2023-11-02] MEDS: ASCORBIC ACID 250 MG TABLET (FP) PO SCH (09:23)
[2023-11-02] MEDS: FOLIC ACID 1 MG TABLET (FP) PO SCH (09:23)
[2023-11-02] MEDS: APIXABAN 5 MG TABLET PO SCH ×2 (09:23→22:19)
[2023-11-02] MEDS: ASPIRIN COATED 81 MG TABLET.EC PO SCH (09:23)
[2023-11-02] MEDS: MULTIVITAMINS (DAILY MVI) TABLET (FP) PO SCH (09:24)
[2023-11-02] MEDS: DOCUSATE SODIUM 100 MG CAPSULE (FP) PO SCH (22:18)
[2023-11-02] MEDS: DAPTOMYCIN 700 MG in SODIUM CHLORIDE 50 ML IVPB SCH (22:25)
[2023-11-03] MEDS: NYSTATIN 500,000 UNITS/5 ML SUSPENSION PO SCH ×4 (00:08→17:24)
[2023-11-03 08:06] LABS: BASO % 1.3 % (0-2.0); EOS % 5.3 % (0-4.5); HEMATOCRIT 22.2 % (35.4-49); HEMOGLOBIN 7.2 GM/dL (11.7-16.9); LYMPH % 16.3 % (8-40); MCH 26.7 pg (25.7-33.7); MCHC 32.5 g/dl (32.0-35.9); MEAN CELL VOLUME 82.1 fl (80-96); MEAN PLT VOLUME 6.8 fl (7.5-11.1); MONO % 9.1 % (3.8-10.2); PLATELET COUNT 599 10^3/uL (134-434); RBC 2.71 M/mm3 (4.00-5.60); RDW 19.5 % (11.9-15.9)
[2023-11-03 08:31] LABS: ALBUMIN 1.2 g/dl (3.4-5.0); BLOOD UREA NITROGEN 27.2 mg/dL (7-18); CALCIUM 7.7 mg/dL (8.5-10.1)
[2023-11-03 08:34] LABS: CREATININE 0.8 mg/dL (0.55-1.3)
[2023-11-03 08:36] LABS: BILIRUBIN,TOTAL 0.3 mg/dL (0.2-1)
[2023-11-03] MEDS: FOLIC ACID 1 MG TABLET (FP) PO SCH (11:21)
[2023-11-03] MEDS: AMINO ACIDS/PROTEIN HYDROLYS 30 ML LIQUID.PKT PO SCH (11:21)
[2023-11-03] MEDS: MULTIVITAMINS (DAILY MVI) TABLET (FP) PO SCH (11:21)
[2023-11-03] MEDS: PANTOPRAZOLE 40 MG TABLET PO SCH (11:21)
[2023-11-03] MEDS: FUROSEMIDE 40 MG/4 ML INJECTABLE VIAL IVPUSH SCH (11:21)
[2023-11-03] MEDS: ASPIRIN COATED 81 MG TABLET.EC PO SCH (11:22)
[2023-11-03] MEDS: APIXABAN 5 MG TABLET PO SCH ×2 (11:22→22:10)
[2023-11-03] MEDS: ASCORBIC ACID 250 MG TABLET (FP) PO SCH (11:22)
[2023-11-03] MEDS: ZINC SULFATE 220 MG CAPSULE (FP) PO SCH (11:23)
[2023-11-03] MEDS: BANATROL PLUS POWDER PACKET PO SCH ×2 (14:51→22:10)
[2023-11-03] MEDS: DAPTOMYCIN 700 MG in SODIUM CHLORIDE 50 ML IVPB SCH (22:10)
[2023-11-03] MEDS: DOCUSATE SODIUM 100 MG CAPSULE (FP) PO SCH (22:10)
[2023-11-04] MEDS: NYSTATIN 500,000 UNITS/5 ML SUSPENSION PO SCH ×4 (00:05→17:49)
[2023-11-04] MEDS: BANATROL PLUS POWDER PACKET PO SCH ×3 (06:15→22:07)
[2023-11-04 08:14] LABS: BASO % 0.9 % (0-2.0); EOS % 6.7 % (0-4.5); HEMATOCRIT 27.1 % (35.4-49); HEMOGLOBIN 8.8 GM/dL (11.7-16.9); LYMPH % 20.6 % (8-40); MCH 26.9 pg (25.7-33.7); MCHC 32.5 g/dl (32.0-35.9); MEAN CELL VOLUME 82.6 fl (80-96); MEAN PLT VOLUME 6.6 fl (7.5-11.1); MONO % 7.9 % (3.8-10.2); NEUT % 63.9 % (42.8-82.8); PLATELET COUNT 604 10^3/uL (134-434); RBC 3.28 M/mm3 (4.00-5.60); RDW 18.3 % (11.9-15.9); WHITE BLOOD COUNT 9.7 K/mm3 (4.0-10.0)
[2023-11-04 08:32] LABS: ALBUMIN 1.3 g/dl (3.4-5.0); BLOOD UREA NITROGEN 27.6 mg/dL (7-18); CALCIUM 7.9 mg/dL (8.5-10.1)
[2023-11-04 08:35] LABS: CREATININE 0.9 mg/dL (0.55-1.3)
[2023-11-04 08:36] LABS: BILIRUBIN,TOTAL 0.4 mg/dL (0.2-1); TOT PROT 5.3 g/dl (6.4-8.2)
[2023-11-04] MEDS: ZINC SULFATE 220 MG CAPSULE (FP) PO SCH (10:32)
[2023-11-04] MEDS: FOLIC ACID 1 MG TABLET (FP) PO SCH (10:32)
[2023-11-04] MEDS: AMINO ACIDS/PROTEIN HYDROLYS 30 ML LIQUID.PKT PO SCH (10:32)
[2023-11-04] MEDS: APIXABAN 5 MG TABLET PO SCH ×2 (10:32→22:08)
[2023-11-04] MEDS: FUROSEMIDE 40 MG/4 ML INJECTABLE VIAL IVPUSH SCH (10:32)
[2023-11-04] MEDS: ASPIRIN COATED 81 MG TABLET.EC PO SCH (10:32)
[2023-11-04] MEDS: ASCORBIC ACID 250 MG TABLET (FP) PO SCH (10:32)
[2023-11-04] MEDS: MULTIVITAMINS (DAILY MVI) TABLET (FP) PO SCH (10:32)
[2023-11-04] MEDS: PANTOPRAZOLE 40 MG TABLET PO SCH (10:33)
[2023-11-04] MEDS: VANCOMYCIN ORAL SOLUTION 125 MG/2.5 ML PO SCH ×2 (12:31→17:50)
[2023-11-04] MEDS: DOCUSATE SODIUM 100 MG CAPSULE (FP) PO SCH (22:08)
[2023-11-04] MEDS: DAPTOMYCIN 700 MG in SODIUM CHLORIDE 50 ML IVPB SCH (22:52)
[2023-11-05] MEDS: VANCOMYCIN ORAL SOLUTION 125 MG/2.5 ML PO SCH ×4 (00:30→17:19)
[2023-11-05] MEDS: NYSTATIN 500,000 UNITS/5 ML SUSPENSION PO SCH ×4 (00:30→17:19)
[2023-11-05] MEDS: BANATROL PLUS POWDER PACKET PO SCH ×3 (06:04→21:44)
[2023-11-05] MEDS: AMINO ACIDS/PROTEIN HYDROLYS 30 ML LIQUID.PKT PO SCH (08:56)
[2023-11-05] MEDS: ASPIRIN COATED 81 MG TABLET.EC PO SCH (10:44)
[2023-11-05] MEDS: APIXABAN 5 MG TABLET PO SCH ×2 (10:44→21:44)
[2023-11-05] MEDS: ZINC SULFATE 220 MG CAPSULE (FP) PO SCH (10:44)
[2023-11-05] MEDS: PANTOPRAZOLE 40 MG TABLET PO SCH (10:44)
[2023-11-05] MEDS: ASCORBIC ACID 250 MG TABLET (FP) PO SCH (10:44)
[2023-11-05] MEDS: FOLIC ACID 1 MG TABLET (FP) PO SCH (10:44)
[2023-11-05] MEDS: MULTIVITAMINS (DAILY MVI) TABLET (FP) PO SCH (10:44)
[2023-11-05] MEDS: FUROSEMIDE 40 MG/4 ML INJECTABLE VIAL IVPUSH SCH ×3 (10:44→19:10)
[2023-11-05] MEDS: DAPTOMYCIN 700 MG in SODIUM CHLORIDE 50 ML IVPB SCH (21:39)
[2023-11-05] MEDS: DOCUSATE SODIUM 100 MG CAPSULE (FP) PO SCH (21:44)
[2023-11-06] MEDS: VANCOMYCIN ORAL SOLUTION 125 MG/2.5 ML PO SCH ×5 (01:05→23:06)
[2023-11-06] MEDS: NYSTATIN 500,000 UNITS/5 ML SUSPENSION PO SCH ×5 (01:05→23:07)
[2023-11-06] MEDS: BANATROL PLUS POWDER PACKET PO SCH ×3 (06:49→22:00)
[2023-11-06 07:25] LABS: EOS % 6.4 % (0-4.5); HEMATOCRIT 26.6 % (35.4-49); HEMOGLOBIN 8.9 GM/dL (11.7-16.9); MCH 27.5 pg (25.7-33.7); MCHC 33.3 g/dl (32.0-35.9); MEAN CELL VOLUME 82.7 fl (80-96); MEAN PLT VOLUME 6.5 fl (7.5-11.1); MONO % 6.6 % (3.8-10.2); PLATELET COUNT 675 10^3/uL (134-434); RBC 3.22 M/mm3 (4.00-5.60); RDW 18.7 % (11.9-15.9); WHITE BLOOD COUNT 10.5 K/mm3 (4.0-10.0)
[2023-11-06 07:42] LABS: ALBUMIN 1.4 g/dl (3.4-5.0); BLOOD UREA NITROGEN 25.9 mg/dL (7-18); CALCIUM 8.2 mg/dL (8.5-10.1)
[2023-11-06 07:45] LABS: CREATININE 0.9 mg/dL (0.55-1.3)
[2023-11-06 07:46] LABS: TOT PROT 5.6 g/dl (6.4-8.2)
[2023-11-06 08:26] LABS: BILIRUBIN,TOTAL 0.5 mg/dL (0.2-1)
[2023-11-06] MEDS: MULTIVITAMINS (DAILY MVI) TABLET (FP) PO SCH (10:27)
[2023-11-06] MEDS: FOLIC ACID 1 MG TABLET (FP) PO SCH (10:27)
[2023-11-06] MEDS: ZINC SULFATE 220 MG CAPSULE (FP) PO SCH (10:27)
[2023-11-06] MEDS: PANTOPRAZOLE 40 MG TABLET PO SCH (10:27)
[2023-11-06] MEDS: APIXABAN 5 MG TABLET PO SCH ×2 (10:27→22:00)
[2023-11-06] MEDS: ASCORBIC ACID 250 MG TABLET (FP) PO SCH (10:27)
[2023-11-06] MEDS: AMINO ACIDS/PROTEIN HYDROLYS 30 ML LIQUID.PKT PO SCH (10:28)
[2023-11-06] MEDS: ASPIRIN COATED 81 MG TABLET.EC PO SCH (10:28)
[2023-11-06] MEDS: FUROSEMIDE 40 MG/4 ML INJECTABLE VIAL IVPUSH SCH (10:46)
[2023-11-06] MEDS: DAPTOMYCIN 700 MG in SODIUM CHLORIDE 50 ML IVPB SCH (19:56)
[2023-11-06] MEDS: DOCUSATE SODIUM 100 MG CAPSULE (FP) PO SCH (22:00)
[2023-11-07] MEDS: BANATROL PLUS POWDER PACKET PO SCH ×3 (05:47→22:00)
[2023-11-07] MEDS: VANCOMYCIN ORAL SOLUTION 125 MG/2.5 ML PO SCH ×3 (05:47→17:51)
[2023-11-07] MEDS: NYSTATIN 500,000 UNITS/5 ML SUSPENSION PO SCH ×3 (05:47→17:51)
[2023-11-07] MEDS: AMINO ACIDS/PROTEIN HYDROLYS 30 ML LIQUID.PKT PO SCH (08:53)
[2023-11-07] MEDS: ASPIRIN COATED 81 MG TABLET.EC PO SCH (09:59)
[2023-11-07] MEDS: ZINC SULFATE 220 MG CAPSULE (FP) PO SCH (09:59)
[2023-11-07] MEDS: MULTIVITAMINS (DAILY MVI) TABLET (FP) PO SCH (09:59)
[2023-11-07] MEDS: PANTOPRAZOLE 40 MG TABLET PO SCH (10:00)
[2023-11-07] MEDS: FOLIC ACID 1 MG TABLET (FP) PO SCH (10:00)
[2023-11-07] MEDS: APIXABAN 5 MG TABLET PO SCH ×2 (10:00→22:00)
[2023-11-07] MEDS: ASCORBIC ACID 250 MG TABLET (FP) PO SCH (10:00)
[2023-11-07] MEDS: FUROSEMIDE 40 MG/4 ML INJECTABLE VIAL IVPUSH SCH (13:51)
[2023-11-07] MEDS: DOCUSATE SODIUM 100 MG CAPSULE (FP) PO SCH (22:00)
[2023-11-08] MEDS: VANCOMYCIN ORAL SOLUTION 125 MG/2.5 ML PO SCH ×5 (00:24→23:29)
[2023-11-08] MEDS: NYSTATIN 500,000 UNITS/5 ML SUSPENSION PO SCH ×5 (01:15→23:29)
[2023-11-08] MEDS: BANATROL PLUS POWDER PACKET PO SCH ×3 (05:53→23:29)
[2023-11-08] MEDS: MULTIVITAMINS (DAILY MVI) TABLET (FP) PO SCH (10:59)
[2023-11-08] MEDS: AMINO ACIDS/PROTEIN HYDROLYS 30 ML LIQUID.PKT PO SCH (10:59)
[2023-11-08] MEDS: ASCORBIC ACID 250 MG TABLET (FP) PO SCH (11:00)
[2023-11-08] MEDS: FOLIC ACID 1 MG TABLET (FP) PO SCH (11:00)
[2023-11-08] MEDS: ZINC SULFATE 220 MG CAPSULE (FP) PO SCH (11:00)
[2023-11-08] MEDS: ASPIRIN COATED 81 MG TABLET.EC PO SCH (11:00)
[2023-11-08] MEDS: FUROSEMIDE 20 MG TABLET (FP) PO SCH (11:00)
[2023-11-08] MEDS: APIXABAN 5 MG TABLET PO SCH ×2 (11:00→23:28)
[2023-11-08] MEDS: PANTOPRAZOLE 40 MG TABLET PO SCH (11:00)
[2023-11-08] MEDS: DOCUSATE SODIUM 100 MG CAPSULE (FP) PO SCH (23:28)
[2023-11-09] MEDS: BANATROL PLUS POWDER PACKET PO SCH ×3 (06:51→22:45)
[2023-11-09] MEDS: VANCOMYCIN ORAL SOLUTION 125 MG/2.5 ML PO SCH ×3 (06:52→17:26)
[2023-11-09] MEDS: NYSTATIN 500,000 UNITS/5 ML SUSPENSION PO SCH ×3 (06:52→17:26)
[2023-11-09] MEDS: APIXABAN 5 MG TABLET PO SCH ×2 (10:40→22:45)
[2023-11-09] MEDS: PANTOPRAZOLE 40 MG TABLET PO SCH (10:40)
[2023-11-09] MEDS: FOLIC ACID 1 MG TABLET (FP) PO SCH (10:40)
[2023-11-09] MEDS: ASCORBIC ACID 250 MG TABLET (FP) PO SCH (10:40)
[2023-11-09] MEDS: ASPIRIN COATED 81 MG TABLET.EC PO SCH (10:40)
[2023-11-09] MEDS: MULTIVITAMINS (DAILY MVI) TABLET (FP) PO SCH (10:40)
[2023-11-09] MEDS: AMINO ACIDS/PROTEIN HYDROLYS 30 ML LIQUID.PKT PO SCH (10:40)
[2023-11-09] MEDS: ZINC SULFATE 220 MG CAPSULE (FP) PO SCH (10:40)
[2023-11-09] MEDS: FUROSEMIDE 20 MG TABLET (FP) PO SCH (10:40)
[2023-11-09] MEDS: DOCUSATE SODIUM 100 MG CAPSULE (FP) PO SCH (22:44)
[2023-11-10] MEDS: VANCOMYCIN ORAL SOLUTION 125 MG/2.5 ML PO SCH ×5 (00:23→23:14)
[2023-11-10] MEDS: NYSTATIN 500,000 UNITS/5 ML SUSPENSION PO SCH ×5 (00:23→23:13)
[2023-11-10] MEDS: BANATROL PLUS POWDER PACKET PO SCH ×3 (06:13→23:13)
[2023-11-10] MEDS: PANTOPRAZOLE 40 MG TABLET PO SCH (09:06)
[2023-11-10] MEDS: FUROSEMIDE 20 MG TABLET (FP) PO SCH (09:06)
[2023-11-10] MEDS: ZINC SULFATE 220 MG CAPSULE (FP) PO SCH (09:06)
[2023-11-10] MEDS: FOLIC ACID 1 MG TABLET (FP) PO SCH (09:06)
[2023-11-10] MEDS: APIXABAN 5 MG TABLET PO SCH ×2 (09:06→23:13)
[2023-11-10] MEDS: AMINO ACIDS/PROTEIN HYDROLYS 30 ML LIQUID.PKT PO SCH (09:06)
[2023-11-10] MEDS: ASCORBIC ACID 250 MG TABLET (FP) PO SCH (09:06)
[2023-11-10] MEDS: ASPIRIN COATED 81 MG TABLET.EC PO SCH (09:06)
[2023-11-10] MEDS: MULTIVITAMINS (DAILY MVI) TABLET (FP) PO SCH (09:06)
[2023-11-10] MEDS: DOCUSATE SODIUM 100 MG CAPSULE (FP) PO SCH (23:13)
[2023-11-11] MEDS: BANATROL PLUS POWDER PACKET PO SCH (06:58)
[2023-11-11] MEDS: NYSTATIN 500,000 UNITS/5 ML SUSPENSION PO SCH ×2 (06:58→11:43)
[2023-11-11] MEDS: VANCOMYCIN ORAL SOLUTION 125 MG/2.5 ML PO SCH ×2 (06:58→12:00)
[2023-11-11 07:46] LABS: BASO % 1.3 % (0-2.0); EOS % 8.1 % (0-4.5); HEMATOCRIT 25.1 % (35.4-49); HEMOGLOBIN 8.3 GM/dL (11.7-16.9); MCH 27.5 pg (25.7-33.7); MCHC 33.1 g/dl (32.0-35.9); MEAN CELL VOLUME 83.1 fl (80-96); MEAN PLT VOLUME 6.2 fl (7.5-11.1); MONO % 9.1 % (3.8-10.2); NEUT % 59.5 % (42.8-82.8); PLATELET COUNT 636 10^3/uL (134-434); RBC 3.02 M/mm3 (4.00-5.60); RDW 18.9 % (11.9-15.9); WHITE BLOOD COUNT 8.8 K/mm3 (4.0-10.0)
[2023-11-11 07:58] LABS: POTASSIUM 4.4 mmol/L (3.5-5.1)
[2023-11-11] MEDS: AMINO ACIDS/PROTEIN HYDROLYS 30 ML LIQUID.PKT PO SCH (08:02)
[2023-11-11 08:05] LABS: ALBUMIN 1.7 g/dl (3.4-5.0)
[2023-11-11 08:08] LABS: CREATININE 0.9 mg/dL (0.55-1.3)
[2023-11-11 08:09] LABS: BILIRUBIN,TOTAL 0.4 mg/dL (0.2-1); TOT PROT 5.8 g/dl (6.4-8.2)
[2023-11-11] MEDS: MULTIVITAMINS (DAILY MVI) TABLET (FP) PO SCH (10:13)
[2023-11-11] MEDS: PANTOPRAZOLE 40 MG TABLET PO SCH (10:14)
[2023-11-11] MEDS: APIXABAN 5 MG TABLET PO SCH (10:14)
[2023-11-11] MEDS: FUROSEMIDE 20 MG TABLET (FP) PO SCH (10:14)
[2023-11-11] MEDS: ZINC SULFATE 220 MG CAPSULE (FP) PO SCH (10:14)
[2023-11-11] MEDS: ASCORBIC ACID 250 MG TABLET (FP) PO SCH (10:14)
[2023-11-11] MEDS: ASPIRIN COATED 81 MG TABLET.EC PO SCH (10:14)
[2023-11-11] MEDS: FOLIC ACID 1 MG TABLET (FP) PO SCH (10:14)
[2023-11-11 10:18] VITALS: BP 146/67; PULSE 60; RESP 20; TEMP 97.7
== END 2023-11-11 12:31 | disposition home or self-care (01) | DRG 177 ==
LOC: FER 22:24 → J4W 10-19 11:59
PROVIDERS: ADMIT Internal Medicine; ATTEND Internal Medicine
PROC: XW033E5 Introduction of Remdesivir Anti-infective into Peripheral Vein, Percutaneous Approach, New Technology Group 5 (ICD-10-PCS; principal; 2023-10-19)
PROC: 30233N1 Transfusion of Nonautologous Red Blood Cells into Peripheral Vein, Percutaneous Approach (ICD-10-PCS; 2023-11-03)
DX: U07.1 COVID-19 (principal); J18.9 Pneumonia, unspecified organism; J96.01 Acute respiratory failure with hypoxia; N39.0 Urinary tract infection, site not specified; A04.72 Enterocolitis due to Clostridium difficile, not specified as recurrent; M46.28 Osteomyelitis of vertebra, sacral and sacrococcygeal region; F03.90 Unspecified dementia, unspecified severity, without behavioral disturbance, psychotic disturbance, mood disturbance, and anxiety; R13.10 Dysphagia, unspecified; E78.5 Hyperlipidemia, unspecified; I10 Essential (primary) hypertension; J11.1 Influenza due to unidentified influenza virus with other respiratory manifestations; D64.9 Anemia, unspecified; C61 Malignant neoplasm of prostate; J43.9 Emphysema, unspecified; L98.429 Non-pressure chronic ulcer of back with unspecified severity; E11.69 Type 2 diabetes mellitus with other specified complication
CPT/HCPCS: 0241U-QW; 36415; 36430; 71045-TC-FY; 74176-TC; 80048; 80053; 81003; 82272; 82550; 82962; 83605; 83735; 83880; 84100; 84484; 85025; 85027; 85610; 85730; 86850; 86900; 86901; 86922; 87040; 87086; 87186; 87324; 87449; 93005; 93010; 93306-TC; 97116-GP; 97162-GP; 99285-25; J0248; J0878; J1100; P9058